=== PATIENT | female | born 1950 | race Caucasian/White ===

== ENCOUNTER → 2018-02-28 17:13 | Outpatient (CLI) | payer OTHER, SELFPAY ==
--- NOTE | 2018-02-28 17:16 | MRI_ITS ---
STUDY: MRI LUMBAR SPINE WITHOUT CONTRAST REASON FOR EXAM: Female, 67 years old. Chronic low back pain. TECHNIQUE: Standardized fat and water weighted pulse sequences were obtained in the sagittal and axial planes. COMPARISON: Prior comparison studies are not available for review at this time. FINDINGS: T12-L1: There is narrowing of the disc with vacuum disc phenomenon. There is a disc bulge and osteophyte complex. Neural foramina are narrowed with questionable impingement of the left T12 nerve root at the neural foramen. Normal lumbar lordosis. There is no substantial scoliosis. Normal conus medullaris that terminates at the L1-2 level L1-2: There is narrowing of the disc. There is vacuum disc phenomenon. There is a broad central disc protrusion. There is moderately severe degenerative arthropathy of the facet joints. There is mild central acquired canal stenosis. Neural foramina are severely narrowed with probable impingement of bilateral L1 nerve roots of the neural foramen. L2-3: There is a broad central disc protrusion. There is moderate degenerative arthropathy of the facet joints. There is moderately severe acquired canal stenosis with potential impingement of the cauda equina. There is increased epidural fat at this levels well. The patient has interpedicular screws at L3. Neuroforamina are bilaterally narrowed with questionable impingement of the L2 nerve roots at the neural foramina. L3-4: There is no residual disc material at this level. There is mild anterolisthesis. There is severe right-sided neural foraminal probably impingement of the right L3 nerve root at the neural foramen. There is moderate degenerative arthropathy of facet joints. There is no significant central acquired canal stenosis. Interpedicular screws are visible at this level probably related to surgical fusion. L4-5: There is a intervertebral disc spacer at this level. There are surgical fusion of this level with interpedicular screws. The neural foramina are moderately narrowed. There is no significant central acquired canal stenosis. L5-S1: There is vacuum disc phenomenon at L5-S1. There is a broad central disc protrusion. There is moderate degenerative arthropathy of the facet joints. There is mild central acquired canal stenosis. No foramina are moderately narrowed, left greater than right with possible impingement of the left L5 nerve root at the neural foramen. Normal visualized sacral ala. There is severe paraspinal muscular atrophy posterior to the sacrum. MRI/Spine Lumbar (Routine) IMPRESSION: 1. 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 2. Status post discectomies and surgical fusion of the L3, L4 and L5 vertebral segments. Electronically Signed: Brenda Mensah MD at 11:49 EST , Service support ,
== END ==
PROVIDERS: Referring Provider Anesthesiology Pain Medicine; Visit Provider Anesthesiology Pain Medicine
DX: M54.9 Dorsalgia, unspecified (principal); M79.606 Pain in leg, unspecified
CPT/HCPCS: 72148

== ENCOUNTER → 2018-05-15 13:52 | Outpatient (CLI) | payer OTHER, SELFPAY ==
[2018-05-15 16:10] LABS: Amphetamine Urine VISTA NEGATIVE (<1000 ng/mL); Barbiturate Urine VISTA NEGATIVE (< 200 ng/mL); Benzodiazepine Urine VISTA NEGATIVE (< 200 ng/mL); Cocaine Urine VISTA NEGATIVE (< 300 ng/mL); Ecstacy Urine VISTA NEGATIVE (< 500 ng/mL); Methadone Urine VISTA NEGATIVE (< 300 ng/mL); PCP Urine VISTA NEGATIVE (< 25 ng/mL); THC Urine VISTA NEGATIVE (< 50 ng/mL); Vista UDS pH Range 6
--- OUTSIDE RECORDS SUMMARY | 2018-07-17 13:00 | XMS RPT_ITS ---
:1950 Author Organization OHIP Support Name Relationship Address Phone BEHZAD CHARLENE Unavailable [address] + [place] [address] R Unavailable Unavailable Unavailable FORTE, CHARLENE Unavailable [address] + [place] [address] R Unavailable Unavailable Unavailable FORTE, GLENDA Unavailable [address] + [address] [place] [address] FORTE, GLENDA Unavailable [address] + [address] [place] [address] FORTE, GLENDA Unavailable [address] + [address] [place] [address] FORTE, GLENDA Unavailable [address] + [address] [place] [address] FORTE, GLENDA Unavailable [address] + [address] [place] [address] FORTE, GLENDA Unavailable [address] + [address] [place] [address] FORTE, GLENDA Unavailable [address] + [address] [place] [address] FORTE, GLENDA Unavailable [address] + [address] [place] [address] FORTE, GLENDA Unavailable [address] + [address] [place] [address] FORTE, GLENDA Unavailable [address] + [address] [place] [address] FORTE, GLENDA Unavailable [address] + [place] [address] FORTE, GLENDA Unavailable [address] + [place] [address] FORTE, GLENDA Unavailable [address] + [place] [address] FORTE, GLENDA Unavailable [address] + [place] [address] FORTE, GLENDA Unavailable [address] + [place] [address] FORTE, GLENDA Unavailable [address] + [place] [address] FORTE, GLENDA Unavailable [address] + [place] [address] FORTE, GLENDA Unavailable [address] + [place] [address] FORTE, GLENDA Unavailable [address] + [place] [address] FORTE, GLENDA Unavailable [address] + [place] [address] Care Team Providers Name Role Phone COLLIN QUINN, DR. REBEKAH Wu Attending Unavailable ANGEL CENTENO, DR. CARMELITA Vaz Primary Care Unavailable HORACE CARRENO Attending Unavailable ANGEL CENTENO, DR. CARMELITA Vaz Primary Care Unavailable MARVA ESTRADA DO Attending Unavailable ANGEL CENTENO, DR. CARMELITA Vaz Primary Care Unavailable ANGEL CENTENO, DR. CARMELITA Vaz Primary Care Unavailable SESAR URIBE CNP Attending Unavailable ANGEL CENTENO, DR. CARMELITA Vaz Attending Unavailable ANGEL CENTENO, DR. CARMELITA Vaz Primary Care Unavailable ANGEL CENTENO, DR. CARMELITA Vaz Attending Unavailable ANGEL CENTENO, DR. CARMELITA Vaz Primary Care Unavailable ANGEL CENTENO, DR. CARMELITA Vaz Attending Unavailable ANGEL CENTENO, DR. CARMELITA Vaz Primary Care Unavailable ANGEL CENTENO, DR. CARMELITA Vaz Primary Care Unavailable LIZBETH JACKSON Attending Unavailable ANGEL CENTENO, DR. CARMELITA Vaz Referring Unavailable MULU TOVAR CNP Attending Unavailable ANGEL CENTENO, DR. CARMELITA Vaz Primary Care Unavailable ANGEL CENTENO, DR. CARMELITA Vaz Attending Unavailable ANGEL CENTENO, DR. CARMELITA Vaz Primary Care Unavailable Basali, Ayman Attending Unavailable Basali, Ayman Referring Unavailable Primay Care Physicia, No Primary Care Unavailable Basali, Ayman Attending Unavailable Basali, Ayman Referring Unavailable Primay Care Physicia, No Primary Care Unavailable PROBLEMS PROBLEMS DATE TYPE CONDITION / CODE ATTENDING STATUS SOURCE 05/15/2018 Unknown F11.20 - Opioid Basali, Ayman Active [place] dependence, [facility] uncomplicated / Hospital F11.20(ICD-10) Repository 05/28/2017 Admitting Opioid dependence, COLLIN QUINN, Active [facility] Diagnosis uncomplicated / [facility] F11.20(ICD-10) Repository PROCEDURES PROCEDURES No Procedure Records FoundRESULTS RESULTS URINE DRUG SCREEN Collected: 05/15/2018 Status: F Source: [place] (VISTA) 1:55 PM [facility] REPOSITORY Order Comment: List of Drugs Taken or Suspected? UNK TYPE CODE TESTS RESULT OUT OF RANGE REFERENCE UNITS LAB L505.0075 TO BE Normal CONFIRMED Result Comment: CONFIRMATORY TESTING FOR ALL POSITIVE URINE DRUG SCREEN RESULTS WILL ONLY BE SENT OUT UPON PHYSICIAN ORDER. VISTA Urine Drug Screen methods provide only preliminary analytical test results. A more specific alternate chemical method must be used in order to obtain a confirmed analytical result. Gas chromatography/mass spectrometery (GC/MS) is the preferred confirmatory method. Clinical consideration and professional judgement should be applied to any drug of abuse test result, particularly when preliminary positive results are used. URINE TCA TESTING MUST BE ORDERED SEPARATELY. USE TEST MNEMONIC: [facility] LAB L505.5005 VISTA UDS PH 6 Normal LAB L505.5015 <1000 ng/mL AMPHETAMINES Normal NEGATIVE LAB L505.5025 < 200 ng/mL BARBITIURATES Normal NEGATIVE LAB L505.5035 < 200 ng/mL BENZODIAZIPINE Normal NEGATIVE LAB L505.5045 < 300 ng/mL COCAINE Normal NEGATIVE LAB L505.5055 < 500 ng/mL ECSTACY Normal NEGATIVE LAB L505.5065 < 300 ng/mL METHADONE Normal NEGATIVE LAB L505.5075 < 300 High ng/mL OPIATES POSITIVE LAB L505.5085 < 25 ng/mL PCP Normal NEGATIVE LAB L505.5095 < 50 ng/mL THC Normal NEGATIVE Performed By: #### L505.5000 #### [facility] [address] [place], [address] SPINE LUMBAR Observed: 02/28/2018 Status: F Source: [place] (ROUTINE) 5:16 PM [facility] Imaging Services [address] [place] [address] Spine Lumbar (Routine) MR#: [id number] Acct: [id number] Name: CHRISTIE WEN Rep #: [id number] : 1950 F 67 From: Brenda Mensah MD PCP: Care Physician, No Primary Status: REG CLI Study: Spine Lumbar (Routine) Date of Exam: 02/28/18 Exam# [id number] Ordering Dr: Rebekah Herrera MD STUDY: MRI LUMBAR SPINE WITHOUT CONTRAST REASON FOR EXAM: Female, 67 years old. Chronic low back pain. TECHNIQUE: Standardized fat and water weighted pulse sequences were obtained in the sagittal and axial planes. COMPARISON: Prior comparison studies are not available for review at this time. FINDINGS: T12-L1: There is narrowing of the disc with vacuum disc phenomenon. There is a disc bulge and osteophyte complex. Neural foramina are narrowed with questionable impingement of the left T12 nerve root at the neural foramen. Normal lumbar lordosis. There is no substantial scoliosis. Normal conus medullaris that terminates at the L1-2 level L1-2: There is narrowing of the disc. There is vacuum disc phenomenon. There is a broad central disc protrusion. There is moderately severe degenerative arthropathy of the facet joints. There is mild central acquired canal stenosis. Neural foramina are severely narrowed with probable impingement of bilateral L1 nerve roots of the neural foramen. L2-3: There is a broad central disc protrusion. There is moderate degenerative arthropathy of the facet joints. There is moderately severe acquired canal stenosis with potential impingement of the cauda equina. There is increased epidural fat at this levels well. The patient has interpedicular screws at L3. Neuroforamina are bilaterally narrowed with questionable impingement of the L2 nerve roots at the neural foramina. L3-4: There is no residual disc material at this level. There is mild anterolisthesis. There is severe right-sided neural foraminal probably impingement of the right L3 nerve root at the neural foramen. There is moderate degenerative arthropathy of facet joints. There is no significant central acquired canal stenosis. Interpedicular screws are visible at this level probably related to surgical fusion. L4-5: There is a intervertebral disc spacer at this level. There are surgical fusion of this level with interpedicular screws. The neural foramina are moderately narrowed. There is no significant central acquired canal stenosis. L5-S1: There is vacuum disc phenomenon at L5-S1. There is a broad central disc protrusion. There is moderate degenerative arthropathy of the facet joints. There is mild central acquired canal stenosis. No foramina are moderately narrowed, left greater than right with possible impingement of the left L5 nerve root at the neural foramen. Normal visualized sacral ala. There is severe paraspinal muscular atrophy posterior to the sacrum. MRI/Spine Lumbar (Routine) IMPRESSION: 1. 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 2. Status post discectomies and surgical fusion of the L3, L4 and L5 vertebral segments. 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 BMP Collected: 11/28/2017 Status: F Source: [facility] 11:34 AM FOUNDATION REPOSITORY TYPE CODE TESTS RESULT OUT OF REFERENCE UNITS RANGE LAB GLU(LOINC) 82-115 mg/dL Glucose Level 96 LAB NA(LOINC) 136-145 mEq/L Sodium Level 144 LAB K(LOINC) 3.5-5.0 mEq/L Potassium Level 4.5 LAB CL(LOINC) 98-110 mEq/L Chloride 109 LAB CO2(LOINC) 22-32 mEq/L CO2 29 LAB EBAL(LOINC 4.0-15.0 mEq/L ) Electrolyte Balance 6.0 LAB BUN(LOINC) 8.0-22.0 mg/dL BUN 22.0 LAB CRE(LOINC) 0.50-1.20 mg/dL Creatinine Lvl (s) 0.76 LAB BC(LOINC) 10.0-22.0 ratio High BUN/Creatinine 28.9 Ratio LAB CA(LOINC) 8.4-10.1 mg/dL Calcium Lvl 8.8 Performed By: #### BMP, GFR, VIDH, LIPID #### [place] [address] .GFR Collected: 11/28/2017 Status: F Source: [facility] 11:34 AM FOUNDATION REPOSITORY TYPE CODE TESTS RESULT OUT OF REFERENCE UNITS RANGE LAB GFRAA(LOINC ml/min/1.73 ) sqm GFR >60 Palauan Result Comment: GFR Population mean for , Non- Americans Ages 20-29 = 116 mL/min/1.73 sq.m. Ages 30-39 = 107 mL/min/1.73 sq.m. Ages 40-49 = 99 mL/min/1.73 sq.m. Ages 50-59 = 93 mL/min/1.73 sq.m. Ages 60-69 = 85 mL/min/1.73 sq.m. Ages 70+ = 75 mL/min/1.73 sq.m. Chronic Kidney Disease: Less than 60 mL/min/1.73 square meters End Stage Renal Disease: Less than 15 mL/min/1.73 square meters LAB GFRNO(LOINC) ml/min/1.73sqm GFR Non- >60 Result Comment: GFR Population mean for , Non- Americans Ages 20-29 = 116 mL/min/1.73 sq.m. Ages 30-39 = 107 mL/min/1.73 sq.m. Ages 40-49 = 99 mL/min/1.73 sq.m. Ages 50-59 = 93 mL/min/1.73 sq.m. Ages 60-69 = 85 mL/min/1.73 sq.m. Ages 70+ = 75 mL/min/1.73 sq.m. Chronic Kidney Disease: Less than 60 mL/min/1.73 square meters End Stage Renal Disease: Less than 15 mL/min/1.73 square meters Performed By: #### BMP, GFR, VIDH, LIPID #### [place] [id number] VIDH Collected: 11/28/2017 Status: F Source: [facility] 11:34 [facility] REPOSITORY TYPE CODE TESTS RESULT OUT OF RANGE REFERENCE UNITS LAB VIDH(LOINC) ng/mL Vit. D 22 25-Hydroxy Result Comment: Interpretive Values Based on Total 25(OH)D: Severe Deficiency <20 ng/mL Mild to Moderate Deficiency 20-30 ng/mL Optimum Levels 30-100 ng/mL Toxicity Possible >100 ng/mL Performed By: #### BMP, GFR, VIDH, LIPID #### [address] [address] LIPID Collected: 11/28/2017 Status: F Source: [facility] 11:34 AM [facility] REPOSITORY TYPE CODE TESTS RESULT OUT OF REFERENCE UNITS RANGE LAB CHOL(LOINC 50-199 mg/dL ) Cholesterol 181 Result Comment: Cholesterol Reference Interval: Less than 200 Desirable 200-239 Borderline high risk 240 and above High risk LAB TRIG(LOINC) 3-149 mg/dL Triglycerides 146 Result Comment: Triglyceride Reference Interval: Less than 150 Normal 150-199 Borderline high risk 200-499 High risk 500 or higher Very high risk LAB HD(LOINC) 40-59 mg/dL HDL High Cholesterol 84 Result Comment: HDL Reference Interval: Less than 40 Low - high risk 60 or above Optimal/lowers risk LAB LDL(LOINC) 0-129 mg/dL LDL Cholesterol 68 Result Comment: LDL is a calculated result and requires a 12-hr fast. LDL Reference Interval: Less than 100 Optimal 100-129 Near or above optimal 130-159 Borderline high risk 160-189 High risk 190 and above Very high risk Performed By: #### BMP, GFR, VIDH, LIPID #### [address] [address] [address] HEAD OR BRAIN W/O Observed: 09/19/2017 Status: F Source: [place] CONTRAST 12:08 PM [facility] REPOSITORY ORIGINAL CT Head without contrast Clinical Statement: change in mental status/weakness/aphasia Comparison: 04/15/2012 This exam was performed according to our departmental dose optimization program, and includes the following measures where applicable: automated exposure control, adjustment of the mAs and/or kVp accord ing to patient size and/or exam, and an iterative reconstruction algorithm. Findings: No acute hemorrhage, infarct, or mass is seen. Minimal periventricular chronic white matter changes are seen. No hydrocephalus is noted. The visualized portions of the paranasal sinuses and ma stoids are clear. The calvarium is intact. IMPRESSION: No acute intracranial process. Interpreted By: Pepito Lugo DO Preliminary Report By: Pepito Lugo DO Electronically Signed By: Pepito Lugo DO Dictated Date: 09/19/2017 12:20:32 PM Prelim Date: 09/19/2017 12:20:32 PM Sign Date: 09/19/2017 12:23:07 PM XR CHEST 1 VIEW Observed: 09/19/2017 Status: F Source: [place] 11:46 AM [facility] REPOSITORY ORIGINAL Portable view chest CLINICAL HISTORY: Chest pain and shortness of breath COMPARISON: 09/03/2017. FINDINGS: The cardiomediastinal contours are normal. There is no focal airspace disease. No nodule or mass is identified. There is no appreciable pleural fluid or pneumothorax. No suspicious osseous abnormality is identified. IMPRESSION: 1. No acute radiographic findings. Interpreted By: Jarek Plasencia MD Preliminary Report By: Jarek Plasencia MD Electronically Signed By: Jarek Plasencia MD Dictated Date: 09/19/2017 12:06:14 PM Prelim Date: 09/19/2017 12:06:14 PM Sign Date: 09/19/2017 12:07:45 PM CBC Collected: 09/19/2017 Status: F Source: [place] 11:21 AM [facility] REPOSITORY TYPE CODE TESTS RESULT OUT OF REFERENCE UNITS RANGE LAB WBC(LOINC) 4.50-10.80 10 3/mcL WBC 7.90 LAB RBCCT(LOINC 4.10-5.30 10 6/mcL ) Low RBC 4.04 LAB HGB(LOINC) 12.0-16.0 G/dL Hgb 12.2 LAB HCT(LOINC) 34.0-46.0 % Hct 36.0 LAB MCV(LOINC) 80.0-99.0 fL MCV 89.0 LAB MCH(LOINC) 27.0-33.0 pg MCH 30.1 LAB MCHC(LOINC) 32.0-36.0 G/dL MCHC 33.8 LAB RDW(LOINC) 11.5-15.5 % RDW 13.7 LAB PLT(LOINC) 150-450 10 3/mcL Platelet 182 LAB MPV(LOINC) 6.6-10.5 fL MPV 7.7 Performed By: #### CBC, ADIFF, ANEU, BMP, GFR #### [address] [address] .AUTO DIFF Collected: 09/19/2017 Status: F Source: [facility] 11:21 [facility] REPOSITORY TYPE CODE TESTS RESULT OUT OF REFERENCE UNITS RANGE LAB NENA(LOINC) 50.0-75.0 % Neutrophil % 73.3 LAB LYM(LOINC) 20.0-40.0 % Low Lymphocyte % 19.4 LAB MON(LOINC) 2.0-13.0 % Monocyte % 4.7 LAB EO(LOINC) 0.0-6.0 % Eosinophil % 2.3 LAB BAS(LOINC) 0.0-2.5 % Basophil % 0.3 LAB ABLYM(LOIN 0.90-4.32 10 3/mcL C) Lymphocyte, 1.50 Absolute LAB SANG(LOINC 0.09-1.40 10 3/mcL ) Monocyte, 0.40 Absolute LAB AEOS(LOINC 0.00-0.65 10 3/mcL ) Eosinophil, 0.20 Absolute LAB ABAS(LOINC 0.00-0.27 10 3/mcL ) Basophil, 0.00 Absolute Performed By: #### CBC, ADIFF, ANEU, BMP, GFR #### [address] [address] .NEUABS Collected: 09/19/2017 Status: F Source: [facility] 11:21 [facility] REPOSITORY TYPE CODE TESTS RESULT OUT OF REFERENCE UNITS RANGE LAB ANEU(LOINC) 2.25-8.10 10 3/mcL Neutrophil, 5.80 Absolute Performed By: #### CBC, ADIFF, ANEU, BMP, GFR #### [address] [address] BMP Collected: 09/19/2017 Status: F Source: [facility] 11:21 AM [facility] REPOSITORY TYPE CODE TESTS RESULT OUT OF REFERENCE UNITS RANGE LAB GLU(LOINC) 82-115 mg/dL Glucose Level 98 LAB NA(LOINC) 136-145 mEq/L Sodium Level 144 LAB K(LOINC) 3.5-5.0 mEq/L Potassium Level 3.7 LAB CL(LOINC) 98-110 mEq/L Chloride 109 LAB CO2(LOINC) 22-32 mEq/L CO2 28 LAB EBAL(LOINC 4.0-15.0 mEq/L ) Electrolyte Balance 7.0 LAB BUN(LOINC) 8.0-22.0 mg/dL BUN 20.0 LAB CRE(LOINC) 0.50-1.20 mg/dL Creatinine Lvl (s) 0.64 LAB BC(LOINC) 10.0-22.0 ratio High BUN/Creatinine 31.2 Ratio LAB CA(LOINC) 8.4-10.1 mg/dL Calcium Lvl 9.1 Performed By: #### CBC, ADIFF, ANEU, BMP, GFR #### [address] [address] .GFR Collected: 09/19/2017 Status: F Source: [facility] 11:21 AM [facility] REPOSITORY TYPE CODE TESTS RESULT OUT OF REFERENCE UNITS RANGE LAB GFRAA(LOINC ml/min/1.73 ) sqm GFR >60 Palauan Result Comment: GFR Population mean for , Non- Americans Ages 20-29 = 116 mL/min/1.73 sq.m. Ages 30-39 = 107 mL/min/1.73 sq.m. Ages 40-49 = 99 mL/min/1.73 sq.m. Ages 50-59 = 93 mL/min/1.73 sq.m. Ages 60-69 = 85 mL/min/1.73 sq.m. Ages 70+ = 75 mL/min/1.73 sq.m. Chronic Kidney Disease: Less than 60 mL/min/1.73 square meters End Stage Renal Disease: Less than 15 mL/min/1.73 square meters LAB GFRNO(LOINC) ml/min/1.73sqm GFR Non- >60 Result Comment: GFR Population mean for , Non- Americans Ages 20-29 = 116 mL/min/1.73 sq.m. Ages 30-39 = 107 mL/min/1.73 sq.m. Ages 40-49 = 99 mL/min/1.73 sq.m. Ages 50-59 = 93 mL/min/1.73 sq.m. Ages 60-69 = 85 mL/min/1.73 sq.m. Ages 70+ = 75 mL/min/1.73 sq.m. Chronic Kidney Disease: Less than 60 mL/min/1.73 square meters End Stage Renal Disease: Less than 15 mL/min/1.73 square meters Performed By: #### CBC, ADIFF, ANEU, BMP, GFR #### [place] [address] XR CHEST 2 VIEWS Observed: 09/03/2017 Status: F Source: [facility] 6:22 PM FOUNDATION REPOSITORY ORIGINAL XR CHEST 2 VIEWS, Clinical Statement: cough, Comparison: 04/23/2015 Findings: No consolidation, pneumothorax, pleural fluid, or vascular congestion is seen. Heart size and mediastinal contours are within normal limits for age and projection. No acute skeletal abnormality. Incompl etely evaluated nonspecific upper abdominal bowel gas pattern. IMPRESSION: No acute cardiopulmonary process. Interpreted By: Yordy Pemberton MD Preliminary Report By: Yordy Pemberton MD Electronically Signed By: Yordy Pemberton MD Dictated Date: 09/03/2017 11:39:03 PM Prelim Date: 09/03/2017 11:39:03 PM Sign Date: 09/03/2017 11:39:25 PM MA MAMMOGRAM SCREENING Observed: 06/18/2017 Status: F Source: [facility] BILATERAL W/ROBERTA 4:30 PM FOUNDATION REPOSITORY ORIGINAL FROM: [facility] [address] [place] [address] PROCEDURE FOR: CHRISTIE WEN [address] [place] [address] Home: PID#: [id number] Exam#: [id number] : 1950 Age: 66 TO: HORACE CARRENO SYSTEMS TECHNOLOGIST [address] [facility], [place] [address] #[id number] DIGITAL SCREENING MAMMOGRAM 3D/2D WITH CAD: 06/18/2017 Comparison is made to exam dated: 10/05/2014 mammogram - [facility]. There are scattered fibroglandular elements in both breasts. Current study was also evaluated with a Computer Aided Detection (CAD) system. No significant masses, calcifications, or other findings are seen in either breast. There has been no significant interval change. IMPRESSION: NEGATIVE There is no mammographic evidence of malignancy. A 1 year screening mammogram is recommended. I have personally reviewed the images of the examination and agree with the findings and interpretation. GERSON BOYD MD ab,ycaro/paresh:06/19/2017 10:06:31 In Service Coordinator: URBAN FRANKS)(M), [facility] letter sent: Normal BI-RADS 1&2 Mammogram BI-RADS: 1 Negative DRUGU Collected: 05/28/2017 Status: F Source: [facility] 6:30 AM FOUNDATION REPOSITORY TYPE CODE TESTS RESULT OUT OF RANGE REFERENCE UNITS LAB UDS(LOINC ) Positive Abnormal Drug Screen Urine LAB UDSDINT(L OINC) Unknown The Drug Screen urine is Urine Interp presumptive positive for: _ LAB SGDU(LOIN 1.005-1.030 C) 1.012 U Specific [place] Drg Scrn LAB PHDU(LOIN 5.0-8.0 C) 5.5 U pH Drug Scrn LAB UDS0(LOIN C) See Urine Drugs Below screened: Result Comment: This drug screen is a presumptive screening only. No confirmation will be performed unless requested. Drugs screened include: Threshold Amphetamines/Methamphetamines 1,000 ng/mL Barbiturates 200 ng/mL Benzodiazepine metabolites 200 ng/mL Cannabinoids (THC metabolites) 50 ng/mL Benzoylecognine (Cocaine metab) 300 ng/mL Opiates 300 ng/mL Phencyclidine (PCP) 25 ng/mL Methadone 300 ng/mL Propoxyphene 300 ng/mL Testing has been performed FOR MEDICAL PURPOSES ONLY. Performed By: #### DRUGU #### [address] [address] ALLERGIES ALLERGIES No Allergies Records FoundENCOUNTERS ENCOUNTERS ADMIT/DISCHARGE ACCOUNT NUMBER ADMITTING ENCOUNTER LOCATION SOURCE CLASS 05/15/2018 [id number] Ambulatory [facility] ding:LAB Repository 02/28/2018 [id number] Ambulatory [facility] ding:MRI Repository 10/10/2017/02/26/20 [id number] Ambulatory ABuilding:[address] Repository 09/20/2017 [id number] Ambulatory ABuilding:[facility] Repository 09/19/2017/09/20/19 [id number] Emergency ABuilding:[address] Repository 09/05/2017 [id number] Ambulatory ABuilding:[facility] Repository 09/03/2017/09/04/19 [id number] Ambulatory ABuilding:[address] Repository 09/03/2017/09/04/19 [id number] Ambulatory [address] Health :[facility] Repository 08/20/2017/08/21/19 [id number] Ambulatory ABuilding:[address] Repository 08/13/2017/08/14/19 [id number] Ambulatory ABuilding:[address] Repository 06/18/2017/06/18/19 [id number] Ambulatory [address] Health :[facility] Repository 05/28/2017/06/01/19 [id number] Ambulatory [address] Health :[facility] Repository PAYERS PAYERS ENCOUNTER GUARANTOR PAYER SUBSCRIBER SOURCE 05/15/2018 CHRISTIE Boothe Primary GLENDA CARLYDenisaTl [place] [id number] Insurance:[facility] icy [facility] [id number] Repository [address]Juc: [address] Date:5620-07-42[phone] (JA) [place], [place] [address]IJ: 05/15/2018 Secondary NOT GIVENUNK [place] Insurance:SELF [facility]Y [facility]: Effective Repository Date:2018-05-15 02/28/2018 CHRISTIE Boothe Primary GLENDA FORTCHOCONTl Tav[place] [id number] [facility] NII AVDonnie y Number: [facility] DANETTE al [id number] Repository [address]Iaj: ([phone]) Date:6545-95-31[phone] (HP) [place] [address]WZ: 02/28/2018 Secondary NOT GIVENUNK [place] Insurance:SELF PAY [facility] Number: Effective Repository Date:2018-02-22 10/10/2017 CHRISTIE Boothe Primary GLENDA V [facility] FORTEDOB: Insurance:AULTCARE FORTEDOB: [facility] [id number] Number: [id number] [id number] [facility] [place] Date:2017-09-20 [place] [address]~[facility] [id number] [id number]: 330) [email or web address]: Name: [phone] [place] [address] (HP)Tel: 330) (HP) [phone]: ([phone] 09/20/2017 CHRISTIE Boothe Primary GLENDA V [facility] FORTEDOB: Insurance:AULTCARE FORTEDOB: [facility] R32Fyoiha Number: [id number] [id number] 3 [facility] [place] Date:2017-09-20 [place] [address]~[facility] [id number] 305[address]Nyd: [phone]) [email or web address]: Name: [phone], [place] (HP)Tel: 330) (HP) [phone]: (WP) [phone] 09/20/2017 [facility] Insurance:MEDICARE FORTEDOB: Foundation PART BPolicy Number: [id number] Repository [id number] Date:2017-09-20 [place], [place] [id number] [id number]: ([phone]) Name:[facility] [phone] Administrators LLCPO (HP)Tel: (000) [address]Beqdhpiai, [phone] (WP) [place] [address]CR: 09/19/2017 CHRISTIE K Primary GLENDA V [facility] FORTEDOB: Insurance:AULTCARE FORTEDOB: Foundation [id number] Number: [id number] [id number] 3 [place], [place] Date:2017-09-19 [place] [address]~DUYRICHARDRITA [id number] [id number]: (330) @[facility]ING[facility]ELDel: Name:SHIREEN Santa [facility] [phone] [place] [address] ()Tel: 330) () [phone]: () [phone] 09/19/2017 Secondary [facility] Insurance:MEDICARE FORTEDOB: Foundation PART BPolicy Number: [id number] Repository [id number] [address] Date:2017-09-19 [place], [place] [id number]: ([phone]) Name:[facility] [phone] Administrators LLCPO (HP)Tel: (000) [address] [address]Kokmqdwsh, 000-0000 (WP) [place] [address]VA: 09/05/2017 CHRISTIE K Primary GLENDA [facility] FORTEDOB: Insurance:AULTCARE FORTEDOB: [facility] [id number] Number: [id number] [address] [id number] [address] [place], [place] Date:2017-09-05 [place] [address]~[place] [id number] [id number]: 330) @[facility]: Name:AP [phone] [place], [place] (HP)Tel: [phone]) (HP) [phone]: (HG) [phone] 09/03/2017 CHRISTIE K Primary GLENDA [facility] FORTEDOB: Insurance:AULTCARE FORTEDOB: [facility] [id number] Number: [id number] [address] [id number] [address] [place], [place] Date:2017-09-03 [place] [address]~[place] [id number] 89497Vmq: (330) @[employer].[facility]: Name:AP [phone] [place] [address] (HP)Tel: [phone]) (HP) [phone]: (MO) [phone] 09/03/2017 Secondary [facility] Insurance:MEDICARE FORTEDOB: [facility] PART BPolicy Number: [id number] Repository [id number] [address] Date:2017-[facility] [place] [id number] [id number]: ([phone]) Name:[facility] [phone] Administrators LLCPO (HP)Tel: (000) [address] [address]Lounjhgig, 000-0000 (WP) [place] [address]NG: 09/03/2017 CHRISTIE K Primary GLENDA V [facility] FORTEDOB: Insurance:AULTCARE FORTEDOB: [facility] [id number] Number: [id number] [id number] [address] [place], [place] Date:2017-09-03 [place] [address]~[place] [id number] 69914Tqb: 330) @[facility] InternationalATRI[facility] HEALTH STEELE CREEKLucille: Name:AP [phone] [place] [address] (HP)Tel: [phone]) (HP) [phone]: (WP) [phone] 09/03/2017 [facility] FORTEDOB: [facility] PART BPolicy Number: [id number] Repository [id number] [address] Date:2017-09-03 [facility] [place] [id number]: [phone]) Name:[facility] 767-[facility]3 [employer] (HP)Tel: 000) [address] [address]Prgqcipgd, 000-0000 (WP) [place] [address]JM: 08/20/2017 CHRISTIE Tl Primary GLENDA [facility] FORTEDOB: Insurance:AULTCARE FORTEDOB: [facility] [id number] Number: [id number] [address] [id number] [address] [place], [place] Date:2017-08-20 [place] [address]~[place] [id number] [id number]: 330) @[facility]ENTER[facility]: Name:AP [phone] [place] [address] (HP)Tel: [phone]) (HP) [phone]: (UD) [phone] 08/13/2017 CHRISTIE K Primary GLENDA V [facility] FORTEDOB: Insurance:AULTCARE FORTEDOB: [facility] [id number] Number: [id number] [address] [id number] [address] [place], [place] Date:2017-08-13 [facility] [place] [address]~[place] [id number]: (330) @[employer] [email or web address]: Name:AP [phone] [place] [address] (HP)Tel: 330) (HP) [phone]: (WP) [phone] 06/18/2017 CHRISTIE Tl Primary GLENDA V [facility]: Insurance:MYTONCARE FORTEDOB: [facility] [id number] Number: [id number] Repository [facility] [id number] 3 [facility], [place] Date:2017-06-05 [place] [address]~[place] [id number] 490[address]Kcw: (330) @[employer] [email or web address]: Name: [phone] [place] [address] (HP)Tel: (330) (HP) [phone]: (QM) [phone] 05/28/2017 CHRISTIE Tl Primary GLENDA V [facility] FORTEDOB: Insurance:[facility] FORTEDOB: [facility] [id number] Number: [id number] Repository [facility] [id number] 3 [facility], [place] Date:2017-05-28 [place] [address]~[place] [id number] [phone]: (330) @[employer] [email or web address]: Name:AP [phone] [place], [place] (HP)Tel: 330) (HP) [phone]: (MS) [phone]
== END ==
PROVIDERS: Referring Provider Anesthesiology Pain Medicine; Visit Provider Anesthesiology Pain Medicine
DX: F11.20 Opioid dependence, uncomplicated (principal)
CPT/HCPCS: 80307

== ENCOUNTER → 2019-06-25 | Outpatient (CLI) | payer OTHER, SELFPAY ==
[2019-06-25 18:30] LABS: Amphetamine Urine VISTA NEGATIVE (<1000 ng/mL); Barbiturate Urine VISTA NEGATIVE (< 200 ng/mL); Benzodiazepine Urine VISTA NEGATIVE (< 200 ng/mL); Cocaine Urine VISTA NEGATIVE (< 300 ng/mL); Ecstacy Urine VISTA NEGATIVE (< 500 ng/mL); Methadone Urine VISTA NEGATIVE (< 300 ng/mL); PCP Urine VISTA NEGATIVE (< 25 ng/mL); THC Urine VISTA NEGATIVE (< 50 ng/mL); Vista UDS pH Range 6
== END | disposition home or self-care (01) ==
LOC: LABSPEC 16:59
PROVIDERS: Referring Provider Anesthesiology Pain Medicine; Visit Provider Anesthesiology Pain Medicine
DX: F11.20 Opioid dependence, uncomplicated (principal)
CPT/HCPCS: 80307

== ENCOUNTER 2022-06-30 16:20 | Inpatient (IN) | payer MEDICARE, SELFPAY ==
[2022-06-30 16:37] VITALS: BP 151/82; PULSE 92; RESP 16; TEMP 36.5; O2SAT 97; BMI 28.8
[2022-06-30 18:01] VITALS: PULSE 92
[2022-06-30] MEDS: Pantoprazole Sodium 40 MG Tablet PO (18:01)
[2022-06-30] MEDS: Metoprolol Tartrate 25 MG Tablet PO (18:01)
[2022-06-30] MEDS: oxyCODONE CR 15 MG Tablet PO (18:01)
[2022-06-30] MEDS: clonazePAM 0.5 MG Tablet PO (18:03)
--- NOTE | 2022-06-30 18:47 | HP.PCM_ITS ---
HPI - General General Date of Admission: 06/30/22 Date of Service: 07/03/22 Chief Complaint: Here for rehabilitation. HPI Narrative 06/26/2022 CHRISTIE WEN, is a 71 Female who presents with followin06/26/2022 Admit to [facility]. Generalized weakness x 2 weeks, acute kidney injury, creatinine 2.79, GFR 17. Weakness, decreased urine output. Urinalysis consistent with urinary tract infection, Rocephin IV given. Sodium 130, Magnesium 0.6, Magnesium sulfate 4gm IV given. Mccormick for urinary retention, renal ultrasound for acute kidney injury. Hold antibiotics for now. Renal ultrasound showed left hydronephrosis. Normal saline 75cc/hour for hyponatremia. 06/27/2022 More alert, urine more clear, but urinalysis large leukocyte esterase, 2+ bacteria. Creatinine improved to 2.13. Rocephin 1gm IV for urinary tract infection, fever. Magnesium 1.7, given Magnesium sulfate 4gm IV. PT/OT for debility. 06/30/2022 Admit to TCU with debility, here for rehabilitation, strengthening, prior to dischareg home with . [facility] Medical History (Updated 06/30/22 @ 18:[address] Timothy Mccoy MD) Acute kidney injury Anxiety Bladder prolapse Chronic kidney disease, stage 3b Debility Diabetes mellitus Fibromyalgia History of colon cancer Hypertension Hypomagnesemia Hyponatremia Obstructive sleep apnea Urinary retention Urinary tract infection Home Medications acetaminophen 650 mg tablet,extended release (Tylenol Arthritis Pain) 650 mg PO TID pain 06/30/22 [History Last Taken Unknown] alendronate 70 mg tablet (Fosamax) 70 mg PO QWEEK Supplement 06/30/22 [History Last Taken Unknown] cholecalciferol (vitamin D3) 125 mcg (5,000 unit) tablet 125 mcg PO DAILY Supplement 06/30/22 [History Last Taken Unknown] clonazepam 0.5 mg tablet 0.5 mg PO BID Anxiety 06/30/22 [History Last Taken Unknown] docusate sodium 100 mg capsule 100 mg PO BID PRN Constipation 06/30/22 [History Last Taken Unknown] duloxetine 60 mg capsule,delayed release (Cymbalta) 60 mg PO QHS Depression 06/30/22 [History Last Taken Unknown] gabapentin 300 mg capsule 300 mg PO TID Nerve pain 06/30/22 [History Last Taken Unknown] loperamide 2 mg tablet (Imodium A-D) 2 mg PO Q6H PRN Diarrhea 06/30/22 [History Last Taken Unknown] magnesium oxide 400 mg (241.3 mg magnesium) tablet 400 mg PO DAILY Supplement 06/30/22 [History Last Taken Unknown] metoprolol tartrate 25 mg tablet 25 mg PO BID BP 06/30/22 [History Last Taken Unknown] omeprazole 40 mg capsule,delayed release 40 mg PO BID GERD 06/30/22 [History Last Taken Unknown] ondansetron HCl 4 mg/5 mL oral solution 4 mg PO Q4H PRN PRN Nausea 06/30/22 [History Last Taken Unknown] oxycodone 15 mg tablet 15 mg PO BID PRN Pain 06/30/22 [History Last Taken Unknown] potassium chloride 20 mEq tablet,extended release 20 meq PO DAILY Supplement 06/30/22 [History Last Taken Unknown] tramadol 50 mg tablet 50 mg PO BID PRN Pain 06/30/22 [History Last Taken Unknown] Allergy/AdvReac Type Severity Reaction Status Date / Time diclofenac [From Voltaren] Allergy Hives Verified 06/30/22 16:43 fexofenadine [From Aria] Allergy Hives Verified 06/30/22 16:38 guaifenesin Allergy Hives Verified 06/30/22 16:44 ibuprofen Allergy Hives Verified 06/30/22 16:43 meloxicam [From Mobic] Allergy Hives Verified 06/30/22 16:43 nabumetone [From Relafen] Allergy Hives Verified 06/30/22 16:43 naproxen [From Naprosyn] Allergy Hives Verified 06/30/22 16:43 sulindac [From Clinoril] Allergy Hives Verified 06/30/22 16:43 Lodine Allergy Hives Uncoded 06/30/22 16:43 Family History (Updated 06/30/22 @ 18:[address] Timothy Mccoy MD) Father Diabetes CAD (coronary artery disease) Myocardial infarction Mother Diabetes CAD (coronary artery disease) Heart failure Aunt Cancer Pancreatic. Surgical History (Updated 06/30/22 @ 18:[address] Timothy Mccoy MD) History of carpal tunnel release History of gastric bypass History of hip replacement History of lumbar laminectomy for spinal cord decompression History of partial hysterectomy History of right hemicolectomy History of tonsillectomy History of tubal ligation History of wisdom tooth extraction Social History (Updated 06/30/22 @ 18:[address] Timothy Mccoy MD) household members: spouse Smoking Status: Former smoker alcohol intake: never substance use type: does not use ROS Constitutional Constitutional: Denies chills, fever(s) or weight gain ENT HEENT: Denies headache(s), nasal congestion or nasal discharge Cardiovascular Cardiovascular: Denies chest pain or palpitations Respiratory/Chest Respiratory/Chest: Denies cough, excessive phlegm production or shortness of breath with exertion Gastrointestinal Gastrointestinal: Denies abdominal pain, nausea or vomiting Genitourinary Genitourinary: Denies dysuria Musculoskeletal Musculoskeletal: Denies joint pain or joint swelling Integumentary Integumentary: Denies rash or wounds Neurologic Neurologic: Denies focal weakness, numbness or tingling Psychiatric Psychiatric: Denies anxiety, auditory hallucinations, depression, homicidal ideation or suicidal ideation Vital Signs Vital Signs Vital Signs: 06/30/22 16:37 06/30/22 18:01 Temperature 97.7 F L Temperature Source Temporal Pulse Rate 92 92 Respiratory Rate 16 Blood Pressure 151/82 H Blood Pressure Mean 105 Blood Pressure Source Monitor Blood Pressure Position Sitting Blood Pressure Location Right Arm Pulse Ox 97 Oxygen Delivery Method Room Air Physical Exam Const alert General Appearance: cooperative HEENT normocephalic Eyes PERRL and EOMs intact bilaterally Neck supple, no JVD and no carotid bruits Resp normal respiratory effort, normal air movement and clear to auscultation bilaterally Cardio regular rate and regular rhythm GI normal to inspection, nondistended, normoactive bowel sounds, non-tender and non-distended Bladder / Kidney Exam: catheter in place urethral Extremity normal capillary refill General Extremity: Negative for edema Skin no rashes or lesions noted General Skin Exam: no breakdown Psych affect normal Appearance: appropriate Results Lab / Micro Data Result Diagrams: 07/03/22 05:17 07/03/22 05:17 Assessment & Plan Assessment/Plan (1) Debility: (2) Acute kidney injury: (3) Hyponatremia: (4) Hypomagnesemia: (5) Urinary tract infection: (6) Diabetes mellitus: (7) Hypertension: (8) Urinary retention: (9) Chronic kidney disease, stage 3b: (10) Fibromyalgia: (11) Anxiety: (12) Obstructive sleep apnea: (13) History of colon cancer: (14) Bladder prolapse: PLAN: Plan 71 year old female with below past medical history hospitalized for weakness secondary to urinary tract infection, complicated by acute kidney injury, obstructive uropathy, hyponatremia, hypomagnesemia, admitted to TCU with debili ty, here for rehabilitation, strengthening, prior to discharge home with . * Debility - PT/OT. * Cognition - ST. * Pain - Tylenol 1000mg tid, Tramadol 50mg bid prn pain (4-5), Oxycontin CR 15mg bid. * Bowel - colace 100mg bid prn, Loperamide 2mg q6h prn. * Adult immunization - Administer pneumonia vaccine, covid19 vaccine, flu vaccine as appropriate. * DVT prophylaxis - Hold, monitor. * Osteoporosis - Alendronate 70mg qweek. 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 * Depression - Duloxetine 60mg qhs, stable chronic jail use, GDR not recommended. * Neuropathic pain - Gabapentin 300mg tid. * Nutrition - Glucerna Shake 120ml tidcm. * Hypertension - Metoprolol 25mg bid. * Nausea - Zofran ODT 4mg q4h prn. * GERD - Pantoprazole 40mg bid. * Hypokalemia - KCL ER 20meq daily.
[2022-06-30 19:00] VITALS: O2SAT 97
[2022-06-30] MEDS: DULoxetine Hcl 60 MG Capsule PO (20:56)
[2022-06-30] MEDS: Acetaminophen 500 MG Tablet 1000 MG PO (20:56)
[2022-06-30] MEDS: Gabapentin 300 MG Capsule PO (20:59)
[2022-06-30] MEDS: Menthol/Lanolin/Calamine/Znox 113 GM Tube 1 APPLIC TOPICAL (21:01)
[2022-06-30] MEDS: Nystatin Powder 15gm Bottle 1 APPLIC TOPICAL (21:01)
[2022-07-01 05:31] VITALS: BP 128/59; PULSE 78
[2022-07-01] MEDS: Gabapentin 300 MG Capsule PO ×3 (05:31→21:38)
[2022-07-01] MEDS: Metoprolol Tartrate 25 MG Tablet PO ×2 (05:31→17:56)
[2022-07-01] MEDS: Pantoprazole Sodium 40 MG Tablet PO ×2 (05:31→17:57)
[2022-07-01] MEDS: clonazePAM 0.5 MG Tablet PO ×2 (05:31→17:55)
[2022-07-01] MEDS: oxyCODONE CR 15 MG Tablet PO ×2 (05:31→17:56)
[2022-07-01] MEDS: Acetaminophen 500 MG Tablet 1000 MG PO ×3 (05:32→21:37)
[2022-07-01] MEDS: Menthol/Lanolin/Calamine/Znox 113 GM Tube 1 APPLIC TOPICAL ×2 (05:37→21:38)
[2022-07-01] MEDS: Nystatin Powder 15gm Bottle 1 APPLIC TOPICAL ×2 (05:37→21:38)
[2022-07-01 06:30] LABS: Bedside Glucose 102 mg/dL (74-106)
[2022-07-01 07:32] LABS: Absolute Lymphocyte Count 3.07 X10^3/uL (0.83-4.51); Absolute Neutrophil Count 6.2 X10^3/uL (2.0-7.7); Basophil# 0.07 X10^3/uL; Basophil% 0.6 % (0-1); Eosinophils% 4.5 % (0-5); Hematocrit 29.6 % (37-47); Hemoglobin 9.2 g/dL (12.0-15.0); Lymphocyte # 3.07 X10^3/ul (0.83-4.51); Lymphocyte % 27.9 % (19-41); Mean Corp Hgb Conc 31.1 g/dL (32-36); Mean Corpuscular Hgb 28.7 pg (27.0-32.0); Mean Corpuscular Volume 92.2 fL (81-99); Mean Platelet Vol. 8.7 fl (6.2-12.0); Monocyte# 0.87 X10^3/uL; Monocyte% 7.9 % (0-10); NRBC Flagged by Analyzer 0 % (0-5); Neutrophil # 6.21 X10^3/uL (2.7-7.7); Neutrophil % 56.6 % (47-70); Platelet Count 498 K/mm3 (150-450); RBC Distribution Width CV 16.1 % (11.6-14.6); RBC Distribution Width SD 54.6 fl (35.1-43.9); Red Blood Count 3.21 M/mm3 (4.2-5.4)
[2022-07-01 07:48] LABS: Anion Gap 10 (5-15); BUN 20 mg/dL (7-18); Calcium,Total 8.9 mg/dL (8.5-10.1); Chloride 110 mmol/L (98-107); Creatinine, Serum 1.67 mg/dL (0.55-1.02); EST Glomerular Filtration Rate 32 mL/min (>60); Est Glom Filt Rate - Afr Amer 39 mL/min (>60); Estimated Creatinine Clearance 21.55 ml/min; Glucose 101 mg/dL (74-106); Potassium 3.5 mmol/L (3.5-5.1); Sodium Level 139 mmol/L (136-145)
[2022-07-01] MEDS: Potassium Chloride Oral Tablet 20 MEQ PO (08:32)
[2022-07-01] MEDS: Glucerna Shake 120 ML LIQUID PO ×3 (08:36→17:55)
[2022-07-01] MEDS: Tuberculin,Purif.prot.deriv. 50 TU/ML Vial 0.1 ML ID (09:25)
[2022-07-01 14:00] VITALS: BP 145/80; PULSE 80; RESP 18; TEMP 36.7; O2SAT 92
[2022-07-01 17:56] VITALS: BP 145/80; PULSE 80
[2022-07-01] MEDS: DULoxetine Hcl 60 MG Capsule PO (21:38)
[2022-07-02 06:31] LABS: Bedside Glucose 86 mg/dL (74-106)
[2022-07-02] MEDS: Menthol/Lanolin/Calamine/Znox 113 GM Tube 1 APPLIC TOPICAL ×2 (07:02→17:52)
[2022-07-02] MEDS: Gabapentin 300 MG Capsule PO ×3 (07:04→21:53)
[2022-07-02] MEDS: Nystatin Powder 15gm Bottle 1 APPLIC TOPICAL ×2 (07:04→17:53)
[2022-07-02] MEDS: oxyCODONE CR 15 MG Tablet PO ×2 (07:04→18:01)
[2022-07-02 07:06] VITALS: BP 124/61; PULSE 73
[2022-07-02] MEDS: Metoprolol Tartrate 25 MG Tablet PO ×2 (07:06→17:54)
[2022-07-02] MEDS: Pantoprazole Sodium 40 MG Tablet PO ×2 (07:06→17:54)
[2022-07-02] MEDS: Acetaminophen 500 MG Tablet 1000 MG PO ×3 (07:06→21:59)
[2022-07-02] MEDS: clonazePAM 0.5 MG Tablet PO ×2 (07:14→18:01)
--- NOTE | 2022-07-02 08:26 | NURSING ---
pt has been very hard to wake up in mornings. also stated yesterday that pt is not a morning person and is more awake mid morning. called pharmacy to change times on glucerna and bhakti and Yves from pharmacy stated to just give earlier or late. rn aware
[2022-07-02 11:00] VITALS: PULSE 69; RESP 16; O2SAT 96
[2022-07-02] MEDS: Potassium Chloride Oral Tablet 20 MEQ PO (11:37)
[2022-07-02] MEDS: Glucerna Shake 120 ML LIQUID PO ×2 (11:37→18:05)
[2022-07-02 14:00] VITALS: BP 121/52; PULSE 76; RESP 16; TEMP 36.2; O2SAT 95
[2022-07-02 17:47] LABS: Magnesium 1.8 mg/dL (1.6-2.6)
[2022-07-02 17:54] VITALS: BP 121/52; PULSE 76
[2022-07-02] MEDS: DULoxetine Hcl 60 MG Capsule PO (22:57)
[2022-07-03 05:56] LABS: Absolute Lymphocyte Count 3.67 X10^3/uL (0.83-4.51); Absolute Neutrophil Count 6.6 X10^3/uL (2.0-7.7); Basophil# 0.09 X10^3/uL; Basophil% 0.7 % (0-1); Eosinophil# 0.58 X10^3/uL; Eosinophils% 4.8 % (0-5); Hematocrit 29.5 % (37-47); Hemoglobin 9.2 g/dL (12.0-15.0); Lymphocyte # 3.67 X10^3/ul (0.83-4.51); Lymphocyte % 30.5 % (19-41); Mean Corp Hgb Conc 31.2 g/dL (32-36); Mean Corpuscular Hgb 29.4 pg (27.0-32.0); Mean Corpuscular Volume 94.2 fL (81-99); Mean Platelet Vol. 8.8 fl (6.2-12.0); Monocyte# 0.81 X10^3/uL; Monocyte% 6.7 % (0-10); NRBC Flagged by Analyzer 0 % (0-5); Neutrophil # 6.56 X10^3/uL (2.7-7.7); Neutrophil % 54.5 % (47-70); Platelet Count 515 K/mm3 (150-450); RBC Distribution Width CV 16.3 % (11.6-14.6); RBC Distribution Width SD 56.2 fl (35.1-43.9); Red Blood Count 3.13 M/mm3 (4.2-5.4); White Blood Count 12.1 K/mm3 (4.4-11.0)
[2022-07-03] MEDS: Gabapentin 300 MG Capsule PO ×3 (06:09→20:59)
[2022-07-03] MEDS: Menthol/Lanolin/Calamine/Znox 113 GM Tube 1 APPLIC TOPICAL ×2 (06:09→17:21)
[2022-07-03] MEDS: clonazePAM 0.5 MG Tablet PO ×2 (06:09→17:20)
[2022-07-03 06:10] VITALS: BP 98/53; PULSE 71
[2022-07-03] MEDS: oxyCODONE CR 15 MG Tablet PO ×2 (06:10→17:20)
[2022-07-03] MEDS: Nystatin Powder 15gm Bottle 1 APPLIC TOPICAL ×2 (06:11→18:19)
[2022-07-03] MEDS: Pantoprazole Sodium 40 MG Tablet PO ×2 (06:12→17:20)
[2022-07-03] MEDS: Acetaminophen 500 MG Tablet 1000 MG PO ×3 (06:12→21:00)
[2022-07-03 06:29] LABS: Anion Gap 9 (5-15); BUN 32 mg/dL (7-18); BUN/Creat Ratio 12.2 RATIO (10-20); Calcium,Total 9.2 mg/dL (8.5-10.1); Chloride 111 mmol/L (98-107); Creatinine, Serum 2.62 mg/dL (0.55-1.02); EST Glomerular Filtration Rate 19 mL/min (>60); Est Glom Filt Rate - Afr Amer 23 mL/min (>60); Estimated Creatinine Clearance 13.74 ml/min; Glucose 101 mg/dL (74-106); Potassium 4.1 mmol/L (3.5-5.1); Sodium Level 138 mmol/L (136-145)
[2022-07-03 06:40] LABS: Bedside Glucose 93 mg/dL (74-106)
--- NOTE | 2022-07-03 07:41 | US_ITS ---
INDICATION: acute kidney injury, left hydronephrosis. EXAMINATION: Ultrasound US Kidney(s) complete (eg, kidneys and bladder) TECHNIQUE: Bae scale and color doppler images were obtained of the kidneys. COMPARISON: None. FINDINGS: RIGHT KIDNEY: Length: 9.5 cm length. Parenchyma: Unremarkable. Hydronephrosis: None. LEFT KIDNEY: Length: 10 cm length. Parenchyma: Unremarkable. Hydronephrosis: None. URINARY BLADDER: Nondistended with Mccormick catheter in place precludes evaluation. US/Kidney and Bladder IMPRESSION: No hydronephrosis. Nondistended bladder. Electronically Signed: Grisel Srinivasan MD at 4:45 EDT ,
[2022-07-03] MEDS: Glucerna Shake 120 ML LIQUID PO ×3 (09:18→17:20)
[2022-07-03] MEDS: 0.9% Normal Saline 1,000 ML 100 ML IV ×2 (09:22→18:21)
--- NOTE | 2022-07-03 11:50 | NURSING ---
Readers' Advisory Service Librarian Note; Activity Asset: Chris Hooker is independent in her choice of daily activities. She prefers to be called Mirtha. Mirtha has her tablet and smartphone her and she will play games, watch movies and talk w/her family using them. She stated she is not a gig reader but likes to look at the magazines. She is not interested in group activities at this time, will continue to do social visit and encourage small group activities for social well-being.
--- NOTE | 2022-07-03 11:59 | NURSING ---
Resident has had confusion while she's been here. This RN discussed Covid booster with her and , they both agreed they'd like her to have while here.
[2022-07-03] MEDS: Potassium Chloride Oral Tablet 20 MEQ PO (13:36)
[2022-07-03 14:00] VITALS: BP 104/55; PULSE 85; RESP 16; TEMP 36.7; O2SAT 96
[2022-07-03 16:41] LABS: Anion Gap 10 (5-15); BUN 32 mg/dL (7-18); Calcium,Total 9.2 mg/dL (8.5-10.1); Chloride 113 mmol/L (98-107); Creatinine, Serum 2.92 mg/dL (0.55-1.02); EST Glomerular Filtration Rate 17 mL/min (>60); Est Glom Filt Rate - Afr Amer 20 mL/min (>60); Estimated Creatinine Clearance 12.33 ml/min; Glucose 120 mg/dL (74-106); Potassium 3.9 mmol/L (3.5-5.1); Sodium Level 140 mmol/L (136-145)
[2022-07-03 17:08] LABS: Bacteria 0 SEEN /hpf (None Seen); Mucous, Urine 0 SEEN /hpf (<or=2+); Red Blood Cells-Urine 0 SEEN /hpf (0-5)
[2022-07-03 17:14] LABS: Color, Urine Yellow (Yellow); Glucose, Dipstick Normal (Normal); Ketone-Dipstick 5 mg/dl (Negative); Leukocyte Esterase-Dipstick 500 /ul (Negative); Nitrite-Dipstick Negative (Negative); Occult Blood-Urine 150 /ul (Negative); Protein-Dipstick 100 mg/dl (Negative); Urine Bilirubin Dipstick Negative (Negative); Urine Clarity Cloudy (Clear); Urine Urobilinogen Normal (Normal)
[2022-07-03 17:20] VITALS: PULSE 86
[2022-07-03] MEDS: Metoprolol Tartrate 25 MG Tablet PO (17:20)
--- NOTE | 2022-07-03 17:22 | CASEMGMT ---
Social Work Met with pt to complete psychosocial assessment. Pt alert and willing to meet with SW. Pt with what appears to be expressive aphasia. Pt indicating she knows what she wants to say but having a difficult time finding the words. Pt becoming frustrated with herself. Extended time needed and allowed for pt to come up with responses. Pt score on BIMS 3/15. Difficult to assess if low score is related to cognition or word finding. MOLST not completed at this time with pt dues to questionable cognition. Phone call to pt and reviewed pt answers during assessment. states pt has had sharp decline in speaking and function over the last 5-6 weeks. Pt spouse provides help with all ADLS and IADLS and this is new recently. Spouse plans to take pt home at time of discharge and provide needed help. [place], however there is a stair lift and ramp available. SW explained [facility] coverage and thata continued stay is not guaranteed. SW to continue to follow for d/c planning. PEGGY Dang
[2022-07-03 17:30] LABS: Renal Epithelial Cells 0-5 SEEN /hpf (0-5); Squamous Epithelial Cells - UA 5-10 SEEN /hpf (5-10); White Blood Cells >100 SEEN /hpf (0-5)
[2022-07-03] MEDS: DULoxetine Hcl 60 MG Capsule PO (21:00)
[2022-07-03 21:05] VITALS: O2SAT 95
[2022-07-04] MEDS: 0.9% Normal Saline 1,000 ML 100 ML IV ×2 (05:16→15:02)
[2022-07-04] MEDS: Gabapentin 300 MG Capsule PO ×3 (05:17→21:01)
[2022-07-04] MEDS: Acetaminophen 500 MG Tablet 1000 MG PO ×3 (05:17→21:00)
[2022-07-04] MEDS: clonazePAM 0.5 MG Tablet PO ×2 (05:17→17:28)
[2022-07-04 05:18] VITALS: BP 123/63; PULSE 78
[2022-07-04] MEDS: Alendronate Sodium 70 MG Tablet PO (05:18)
[2022-07-04] MEDS: Pantoprazole Sodium 40 MG Tablet PO ×2 (05:18→17:30)
[2022-07-04] MEDS: Metoprolol Tartrate 25 MG Tablet PO ×2 (05:18→17:30)
[2022-07-04] MEDS: Cefdinir 300 MG Capsule PO (05:19)
[2022-07-04] MEDS: oxyCODONE CR 15 MG Tablet PO ×2 (05:19→17:35)
[2022-07-04] MEDS: Menthol/Lanolin/Calamine/Znox 113 GM Tube 1 APPLIC TOPICAL ×2 (05:26→17:32)
[2022-07-04] MEDS: Nystatin Powder 15gm Bottle 1 APPLIC TOPICAL ×2 (05:26→17:39)
[2022-07-04 05:40] LABS: Absolute Lymphocyte Count 3.29 X10^3/uL (0.83-4.51); Absolute Neutrophil Count 6.1 X10^3/uL (2.0-7.7); Basophil# 0.08 X10^3/uL; Basophil% 0.7 % (0-1); Eosinophil# 0.43 X10^3/uL; Hematocrit 27.4 % (37-47); Hemoglobin 8.3 g/dL (12.0-15.0); Lymphocyte # 3.29 X10^3/ul (0.83-4.51); Lymphocyte % 30.4 % (19-41); Mean Corp Hgb Conc 30.3 g/dL (32-36); Mean Corpuscular Hgb 29.2 pg (27.0-32.0); Mean Corpuscular Volume 96.5 fL (81-99); Mean Platelet Vol. 8.6 fl (6.2-12.0); Monocyte# 0.73 X10^3/uL; Monocyte% 6.7 % (0-10); NRBC Flagged by Analyzer 0 % (0-5); Neutrophil # 6.08 X10^3/uL (2.7-7.7); Neutrophil % 56.1 % (47-70); Platelet Count 430 K/mm3 (150-450); RBC Distribution Width CV 16.5 % (11.6-14.6); RBC Distribution Width SD 58.6 fl (35.1-43.9); Red Blood Count 2.84 M/mm3 (4.2-5.4); White Blood Count 10.8 K/mm3 (4.4-11.0)
[2022-07-04 06:01] LABS: Anion Gap 8 (5-15); BUN 34 mg/dL (7-18); BUN/Creat Ratio 11.7 RATIO (10-20); Calcium,Total 8.4 mg/dL (8.5-10.1); Chloride 114 mmol/L (98-107); EST Glomerular Filtration Rate 17 mL/min (>60); Est Glom Filt Rate - Afr Amer 20 mL/min (>60); Estimated Creatinine Clearance 12.41 ml/min; Glucose 95 mg/dL (74-106); Potassium 4.2 mmol/L (3.5-5.1); Sodium Level 139 mmol/L (136-145)
[2022-07-04 08:00] LABS: Bedside Glucose 96 mg/dL (74-106)
[2022-07-04 08:00] LABS: Bedside Glucose 91 mg/dL (74-106)
[2022-07-04] MEDS: Glucerna Shake 120 ML LIQUID PO ×3 (08:56→17:29)
[2022-07-04 09:43] VITALS: BMI 30.5
[2022-07-04] MEDS: Ascorbic Acid 500 MG Tablet PO (10:04)
[2022-07-04] MEDS: Potassium Chloride Oral Tablet 20 MEQ PO (11:43)
[2022-07-04 14:00] VITALS: BP 116/62; PULSE 81; RESP 16; TEMP 36.2; O2SAT 98
--- NOTE | 2022-07-04 16:00 | PCM.CONS.R ---
Documented by User: KAROL Irwin 07/04/22 16:36 Assessment & Plan Assessment/Plan (1) Acute kidney injury: (2) Chronic kidney disease, stage 3b: (3) Hypertension: (4) Urinary retention: PLAN: Plan This is a 71-year-old female with past medical history significant for hypertension, gastric bypass, history of urinary retention/bladder prolapse with history of straight catheterization at home, recent history of left mild to moderate hydronephrosis now with indwelling Mccormick catheter who was transferred to rehab unit after recent hospitalization in [facility]. We were consulted for acute kidney injury. Patient and both report patient was seen by operations officer in hospital setting first week of April for renal insufficiency. Patient has never required BIOMATERIALS ENGINEER. Patient does have an appointment with operations officer in [place] on July 19. On admission, 07/01 serum creatinine was 1.67 mg/dL. Creatinine 2.92 mg/dL yesterday and today patient's creatinine is 2.90 mg/dL. Reviewed labs from last hospitalization, on 06/26 serum creatinine 2.7 mg/dL, on 06/30 serum creatinine 1.8 mg/dL. Per past hospital documentation possible baseline serum creatinine range around 1.5 to 1.7 mg/dL. Patient is now on IV fluids. Acute kidney injury possibly from volume depletion as patient and both report appetite has been poor; there has been no recent NSAIDs, diuretics, YUNIOR inhibitor or ARB's; to note patient has also had bp fluctuations which could also be contributing to SUSAN. Renal ultrasound here did not show any hydronephrosis. Urine culture from July 03 no growth. Urinalysis from July 03 no RBCs, leukocyte Estrace 500, protein 100. We will check urine protein creatinine ratio. Recommend to continue with IV fluids as you are doing. Hopefully serum creatinine has peaked, will be leveling off and will start to improve with IV fluids. I also encouraged patient to try and increase solute and fluid intake. At this time there is no acute indication for BIOMATERIALS ENGINEER as patient is nonoliguric, there is no significant acidemia, hypervolemia or hyperkalemia; in fact patient may be mildly hypovolemic. Bicarbonate is 17, patient reports no recent diarrhea, possibly metabolic acidosis from SUSAN/CKD. If bicarbonate level does not improve we will likely add oral bicarbonate supplementation. Blood pressures have been acceptable however patient did have a low blood pressure reading of 98/53 yesterday which could have also been contributing to SUSAN. Patient is on metoprolol 25 mg twice daily, will add holding parameters. Further orders forthcoming as hospitalization evolves. Thank you for allowing us participate in the care of Ms. Wen. HPI Consult Data Date of Consult: 07/04/22 HPI Narrative HPI Narrative: CHRISTIE WEN, is a 71 F with past medical history significant for hypertension, chronic pain syndrome, MARC, anxiety, gastric bypass, colon cancer, bladder prolapse, urinary retention and urinary incontinence (prior to hospitalization patient had been performing straight catheterization at home at least 3 times daily under the direction of gynecology) who was transferred from [facility] to [facility] rehab unit after patient had been at [facility] for SUSAN, weakness and urinary retention. Patient was admitted to [facility] June 26, 2022. Patient was encouraged to go to the emergency room under the direction of her PCP as patient had lab work drawn and was found to have a creatinine of 2.79 mg/dL. Patient was admitted for weakness and urinary retention; serum creatinine was 2.71 mg/dL. Mccormick catheter was placed at that time for urinary retention and renal ultrasound showed mild to moderate left hydronephrosis. Patient has never required BIOMATERIALS ENGINEER. Per review of previous hospital documentation, apparently baseline serum creatinine range around 1.5 to 1.7 mg/dL. Lab work reviewed: SCr 06/30 1.8mg/dL. We were consulted for SUSAN on probable CKD. Per patient and , patient has never seen a operations officer in outpatient setting. reports patient first saw a operations officer when she was admitted to [facility] first week of April. She has appointment with operations officer in [place] on July 19. Patient and both report patient's appetite has been poor. She denies any nausea or vomiting. She is complaining of feeling thirsty. Patient denies any recent NSAID use. [facility] Medical History (Updated 06/30/22 @ 18:[address] Timothy Mccoy MD) Acute kidney injury Anxiety Bladder prolapse Chronic kidney disease, stage 3b Debility Diabetes mellitus Fibromyalgia History of colon cancer Hypertension Hypomagnesemia Hyponatremia Obstructive sleep apnea Urinary retention Urinary tract infection Home Medications acetaminophen 650 mg tablet,extended release (Tylenol Arthritis Pain) 650 mg PO TID pain 06/30/22 [History Last Taken Unknown] alendronate 70 mg tablet (Fosamax) 70 mg PO QWEEK Supplement 06/30/22 [History Last Taken Unknown] cholecalciferol (vitamin D3) 125 mcg (5,000 unit) tablet 125 mcg PO DAILY Supplement 06/30/22 [History Last Taken Unknown] clonazepam 0.5 mg tablet 0.5 mg PO BID Anxiety 06/30/22 [History Last Taken Unknown] docusate sodium 100 mg capsule 100 mg PO BID PRN Constipation 06/30/22 [History Last Taken Unknown] duloxetine 60 mg capsule,delayed release (Cymbalta) 60 mg PO QHS Depression 06/30/22 [History Last Taken Unknown] gabapentin 300 mg capsule 300 mg PO TID Nerve pain 06/30/22 [History Last Taken Unknown] loperamide 2 mg tablet (Imodium A-D) 2 mg PO Q6H PRN Diarrhea 06/30/22 [History Last Taken Unknown] magnesium oxide 400 mg (241.3 mg magnesium) tablet 400 mg PO DAILY Supplement 06/30/22 [History Last Taken Unknown] metoprolol tartrate 25 mg tablet 25 mg PO BID BP 06/30/22 [History Last Taken Unknown] omeprazole 40 mg capsule,delayed release 40 mg PO BID GERD 06/30/22 [History Last Taken Unknown] ondansetron HCl 4 mg/5 mL oral solution 4 mg PO Q4H PRN PRN Nausea 06/30/22 [History Last Taken Unknown] oxycodone 15 mg tablet 15 mg PO BID PRN Pain 06/30/22 [History Last Taken Unknown] potassium chloride 20 mEq tablet,extended release 20 meq PO DAILY Supplement 06/30/22 [History Last Taken Unknown] tramadol 50 mg tablet 50 mg PO BID PRN Pain 06/30/22 [History Last Taken Unknown] Allergy/AdvReac Type Severity Reaction Status Date / Time diclofenac [From Voltaren] Allergy Hives Verified 06/30/22 16:43 etodolac Allergy Hives Verified 07/03/22 07:50 fexofenadine [From Aria] Allergy Hives Verified 06/30/22 16:38 guaifenesin Allergy Hives Verified 06/30/22 16:44 ibuprofen Allergy Hives Verified 06/30/22 16:43 meloxicam [From Mobic] Allergy Hives Verified 06/30/22 16:43 nabumetone [From Relafen] Allergy Hives Verified 06/30/22 16:43 naproxen [From Naprosyn] Allergy Hives Verified 06/30/22 16:43 sulindac [From Clinoril] Allergy Hives Verified 06/30/22 16:43 Family History (Updated 06/30/22 @ 18:[address] Timothy Mccoy MD) Father Diabetes CAD (coronary artery disease) Myocardial infarction Mother Diabetes CAD (coronary artery disease) Heart failure Aunt Cancer Pancreatic. Surgical History (Updated 06/30/22 @ 18:[address] Timothy Mccoy MD) History of carpal tunnel release History of gastric bypass History of hip replacement History of lumbar laminectomy for spinal cord decompression History of partial hysterectomy History of right hemicolectomy History of tonsillectomy History of tubal ligation History of wisdom tooth extraction Social History (Updated 06/30/22 @ 18:[address] Timothy Mccoy MD) household members: spouse Smoking Status: Former smoker alcohol intake: never substance use type: does not use ROS ROS Narrative As in HPI and past medical history Physical Exam Narrative Alert and oriented x3, no apparent distress S1, S2, RRR Lung sounds clear anteriorly and posteriorly. No wheezes, rhonchi or rales noted Abdomen soft, nondistended, positive bowel sounds No edema noted bilateral lower legs feet or arms Indwelling Mccormick with clear urine in bag Lab / Micro Data Result Diagrams: 07/04/22 05:16 07/04/22 05:16 Labs: Laboratory Results - last 24 hr 07/03/22 15:41: Sodium 140, Potassium 3.9, Chloride 113 H, Carbon Dioxide 17.0 L, Anion Gap 10, BUN 32 H, Creatinine 2.92 H, Estim Creat Clear Calc 12.33, Est GFR (MDRD) Af Amer 20 L, Est GFR (MDRD) Non-Af 17 L, BUN/Creatinine Ratio 11.0, Glucose 120 H, Calcium 9.2 07/03/22 17:00: Urine Color Yellow, Urine Clarity Cloudy, Urine pH 5.0, Ur Specific [place] 1.020, Urine Protein 100 H, Urine Glucose (UA) Normal, Urine Ketones 5 H, Urine Occult Blood 150 H, Urine Nitrite Negative, Urine Bilirubin Negative, Urine Urobilinogen Normal, Ur Leukocyte Esterase 500 H, Urine RBC 0 SEEN, Urine WBC >100 SEEN, Ur Squamous Epith Cells 5-10 SEEN, Ur Renal Epithelial Cell 0-5 SEEN, Urine Bacteria 0 SEEN, Urine Mucus 0 SEEN 07/04/22 05:16: WBC 10.8, RBC 2.84 L, Hgb 8.3 L, Hct 27.4 L, MCV 96.5, MCH 29.2, MCHC 30.3 L, RDW Std Deviation 58.6 H, RDW Coeff of Luci 16.5 H, Plt Count 430, MPV 8.6, Immature Gran % (Auto) 2.100 H, Neut % (Auto) 56.1, Lymph % (Auto) 30.4, [place] % (Auto) 6.7, Eos % (Auto) 4.0, Baso % (Auto) 0.7, Absolute Neuts (auto) 6.1, Absolute Lymphs (auto) 3.29, Nucleated RBC % 0 07/04/22 05:16: Sodium 139, Potassium 4.2, Chloride 114 H, Carbon Dioxide 17.0 L, Anion Gap 8, BUN 34 H, Creatinine 2.90 H, Estim Creat Clear Calc 12.41, Est GFR (MDRD) Af Amer 20 L, Est GFR (MDRD) Non-Af 17 L, BUN/Creatinine Ratio 11.7, Glucose 95, Calcium 8.4 L 07/04/22 06:12: POC Glucose 96 07/04/22 06:20: POC Glucose 91 Micro: Microbiology 07/03/22 17:00 Urine Catheter - Mccormick Urine Culture - Preliminary Culture exhibits no growth. 07/04/22 06:52 Nasal Secretion SARS-CoV-2 Antigen (Rapid) - Final Radiology Impression Renal Ultrasound 07/03/22 07:41 IMPRESSION: No hydronephrosis. Nondistended bladder. Electronically Signed: Grisel Srinivasan MD at 4:45 EDT , Documented by User: Dr. Malia Elizondo MD 07/04/22 17:52 Assessment & Plan Assessment/Plan (1) Acute kidney injury: (2) Chronic kidney disease, stage 3b: (3) Hypertension: (4) Urinary retention: PLAN: Plan This is a 71-year-old female with past medical history significant for hypertension, gastric bypass, history of urinary retention/bladder prolapse with history of straight catheterization at home, recent history of left mild to moderate hydronephrosis now with indwelling Mccormick catheter who was transferred to rehab unit after recent hospitalization in [facility]. We were consulted for acute kidney injury. Patient and both report patient was seen by operations officer in hospital setting first week of April for renal insufficiency. Patient has never required BIOMATERIALS ENGINEER. Patient does have an appointment with operations officer in [place] on July 19. On admission, 07/01 serum creatinine was 1.67 mg/dL. Creatinine 2.92 mg/dL yesterday and today patient's creatinine is 2.90 mg/dL. Reviewed labs from last hospitalization, on 06/26 serum creatinine 2.7 mg/dL, on 06/30 serum creatinine 1.8 mg/dL. Per past hospital documentation possible baseline serum creatinine range around 1.5 to 1.7 mg/dL. Patient is now on IV fluids. Acute kidney injury possibly from volume depletion as patient and both report appetite has been poor; there has been no recent NSAIDs, diuretics, YUNIOR inhibitor or ARB's; to note patient has also had bp fluctuations which could also be contributing to SUSAN. Renal ultrasound here did not show any hydronephrosis. Urine culture from July 03 no growth. Urinalysis from July 03 no RBCs, leukocyte Estrace 500, protein 100. We will check urine protein creatinine ratio. Recommend to continue with IV fluids as you are doing. Hopefully serum creatinine has peaked, will be leveling off and will start to improve with IV fluids. I also encouraged patient to try and increase solute and fluid intake. At this time there is no acute indication for BIOMATERIALS ENGINEER as patient is nonoliguric, there is no significant acidemia, hypervolemia or hyperkalemia; in fact patient may be mildly hypovolemic. Bicarbonate is 17, patient reports no recent diarrhea, possibly metabolic acidosis from SUSAN/CKD. If bicarbonate level does not improve we will likely add oral bicarbonate supplementation. Blood pressures have been acceptable however patient did have a low blood pressure reading of 98/53 yesterday which could have also been contributing to SUSAN. Patient is on metoprolol 25 mg twice daily, will add holding parameters. Further orders forthcoming as hospitalization evolves. Thank you for allowing us participate in the care of Ms. Wen. Nephrology attending addendum: Agree with nurse practitioners assessment/plan. The patient likely has prerenal SUSAN on CKD stage IIIb. We will check urine indices. Recheck renal function tomorrow. The patient also has moderate metabolic acidosis with bicarbonate level of 17 mmol/L. Recheck bicarbonate level tomorrow. If serum bicarbonate level is any lower, we can switch IV fluid to LR. Zeke Remy MD HPI Consult Data Date of Consult: 07/04/22 [facility] Medical History (Updated 06/30/22 @ 18:[address] Timothy Mccoy MD) Acute kidney injury Anxiety Bladder prolapse Chronic kidney disease, stage 3b Debility Diabetes mellitus Fibromyalgia History of colon cancer Hypertension Hypomagnesemia Hyponatremia Obstructive sleep apnea Urinary retention Urinary tract infection Home Medications acetaminophen 650 mg tablet,extended release (Tylenol Arthritis Pain) 650 mg PO TID pain 06/30/22 [History Last Taken Unknown] alendronate 70 mg tablet (Fosamax) 70 mg PO QWEEK Supplement 06/30/22 [History Last Taken Unknown] cholecalciferol (vitamin D3) 125 mcg (5,000 unit) tablet 125 mcg PO DAILY Supplement 06/30/22 [History Last Taken Unknown] clonazepam 0.5 mg tablet 0.5 mg PO BID Anxiety 06/30/22 [History Last Taken Unknown] docusate sodium 100 mg capsule 100 mg PO BID PRN Constipation 06/30/22 [History Last Taken Unknown] duloxetine 60 mg capsule,delayed release (Cymbalta) 60 mg PO QHS Depression 06/30/22 [History Last Taken Unknown] gabapentin 300 mg capsule 300 mg PO TID Nerve pain 06/30/22 [History Last Taken Unknown] loperamide 2 mg tablet (Imodium A-D) 2 mg PO Q6H PRN Diarrhea 06/30/22 [History Last Taken Unknown] magnesium oxide 400 mg (241.3 mg magnesium) tablet 400 mg PO DAILY Supplement 06/30/22 [History Last Taken Unknown] metoprolol tartrate 25 mg tablet 25 mg PO BID BP 06/30/22 [History Last Taken Unknown] omeprazole 40 mg capsule,delayed release 40 mg PO BID GERD 06/30/22 [History Last Taken Unknown] ondansetron HCl 4 mg/5 mL oral solution 4 mg PO Q4H PRN PRN Nausea 06/30/22 [History Last Taken Unknown] oxycodone 15 mg tablet 15 mg PO BID PRN Pain 06/30/22 [History Last Taken Unknown] potassium chloride 20 mEq tablet,extended release 20 meq PO DAILY Supplement 06/30/22 [History Last Taken Unknown] tramadol 50 mg tablet 50 mg PO BID PRN Pain 06/30/22 [History Last Taken Unknown] Allergy/AdvReac Type Severity Reaction Status Date / Time diclofenac [From Voltaren] Allergy Hives Verified 06/30/22 16:43 etodolac Allergy Hives Verified 07/03/22 07:50 fexofenadine [From Aria] Allergy Hives Verified 06/30/22 16:38 guaifenesin Allergy Hives Verified 06/30/22 16:44 ibuprofen Allergy Hives Verified 06/30/22 16:43 meloxicam [From Mobic] Allergy Hives Verified 06/30/22 16:43 nabumetone [From Relafen] Allergy Hives Verified 06/30/22 16:43 naproxen [From Naprosyn] Allergy Hives Verified 06/30/22 16:43 sulindac [From Clinoril] Allergy Hives Verified 06/30/22 16:43 Family History (Updated 06/30/22 @ 18:[address] Timothy Mccoy MD) Father Diabetes CAD (coronary artery disease) Myocardial infarction Mother Diabetes CAD (coronary artery disease) Heart failure Aunt Cancer Pancreatic. Surgical History (Updated 06/30/22 @ 18:[address] Timothy Mccoy MD) History of carpal tunnel release History of gastric bypass History of hip replacement History of lumbar laminectomy for spinal cord decompression History of partial hysterectomy History of right hemicolectomy History of tonsillectomy History of tubal ligation History of wisdom tooth extraction Social History (Updated 06/30/22 @ 18:[address] Timothy Mccoy MD) household members: spouse Smoking Status: Former smoker alcohol intake: never substance use type: does not use Lab / Micro Data Result Diagrams: 07/04/22 05:16 07/04/22 05:16
--- NOTE | 2022-07-04 16:13 | PCM.PN.DRR ---
TCU RX Drug Regimen Review Subjective: TCU Admission. 71 YOF presented to outside ER with weakness. Hospitalized for weakness secondary to urinary tract infection, complicated by acute kidney injury, obstructive uropathy, hyponatremia, hypomagnesemia. Admitted to TCU with debility for strengthening and rehabilitation. Objective: Allergies diclofenac [From Voltaren] Allergy (Verified 06/30/22 16:43) Hives etodolac Allergy (Verified 07/03/22 07:50) Hives fexofenadine [From Aria] Allergy (Verified 06/30/22 16:38) Hives guaifenesin Allergy (Verified 06/30/22 16:44) Hives Tachycardia, Rash, and SOB ibuprofen Allergy (Verified 06/30/22 16:43) Hives meloxicam [From Mobic] Allergy (Verified 06/30/22 16:43) Hives nabumetone [From Relafen] Allergy (Verified 06/30/22 16:43) Hives naproxen [From Naprosyn] Allergy (Verified 06/30/22 16:43) Hives sulindac [From Clinoril] Allergy (Verified 06/30/22 16:43) Hives Current Medications Generic Name Dose Route Start Last Admin Trade Name Freq PRN Reason Stop Dose Admin Acetaminophen 1,000 mg 06/30/22 22:00 07/04/22 13:34 Acetaminophen 500 Mg Tablet PO 1,000 mg TID ABDIEL Administration Alendronate Sodium 70 mg 07/04/22 06:00 07/04/22 05:18 Alendronate Sodium 70 Mg Tablet PO 70 mg Tu@0600 ABDIEL Administration Ascorbic Acid 500 mg 07/04/22 08:00 07/04/22 10:04 Ascorbic Acid 500 Mg Tablet PO 500 mg BREAKFAST ABDIEL Administration Calamine/Phenol 1 applic 06/30/22 22:00 07/04/22 05:26 Menthol/Lanolin/Calamine/Znox 113 Gm Tube TOPICAL 1 applic BID ABDIEL Administration Protocol Cefdinir 300 mg 07/04/22 06:00 07/04/22 05:19 Cefdinir 300 Mg Capsule PO 300 mg DAILY ABDIEL Administration Clonazepam 0.5 mg 06/30/22 18:00 07/04/22 05:17 Clonazepam 0.5 Mg Tablet PO 0.5 mg BID ABDIEL Administration Docusate Sodium 100 mg 06/30/22 16:57 Docusate Sodium 100 Mg Capsule PO BID PRN PRN Constipation Duloxetine HCl 60 mg 06/30/22 22:00 07/03/22 21:00 Duloxetine Hcl 60 Mg Capsule PO 60 mg QHS ABDIEL Administration Gabapentin 300 mg 06/30/22 22:00 07/04/22 13:35 Gabapentin 300 Mg Capsule PO 300 mg TID ABDIEL Administration Sodium Chloride 1,000 mls @ 100 mls/hr 07/03/22 07:45 07/04/22 15:02 IV 100 mls/hr .Q10H ABDIEL Administration Loperamide HCl 2 mg 06/30/22 17:16 Loperamide 2 Mg Capsule PO Q6H PRN PRN Diarrhea Metoprolol Tartrate 25 mg 06/30/22 18:00 07/04/22 05:18 Metoprolol Tartrate 25 Mg Tablet PO 25 mg BID ABDIEL Administration Nutritional Formula (Lactose Free) 120 ml 07/01/22 07:45 07/04/22 11:42 Glucerna Shake 120 Ml Liquid PO 120 ml [facility]CM [facility] Administration Nystatin 1 applic 06/30/22 22:00 07/04/22 05:26 Nystatin Powder 15gm Bottle TOPICAL 1 applic BID [facility] Administration Protocol Ondansetron HCl 4 mg 06/30/22 17:16 Ondansetron Odt 4 Mg Tablet PO Q4H PRN PRN Nausea Oxycodone HCl 15 mg 06/30/22 18:00 07/04/22 05:19 Oxycodone Cr 15 Mg Tablet PO 15 mg BID [facility] Administration Pantoprazole Sodium 40 mg 06/30/22 18:00 07/04/22 05:18 Pantoprazole Sodium 40 Mg Tablet PO 40 mg BID [facility] Administration Polysaccharide Iron Complex 150 mg 07/05/22 08:00 Iron Polysaccharide Complex 150 Mg Capsule PO DAILY [facility] Potassium Chloride 20 meq 07/02/22 12:00 07/04/22 11:43 Potassium Chloride Oral Tablet 20 Meq PO 20 meq DAILY@1200 [facility] Administration Sodium Chloride 10 - 40 ml 07/03/22 09:28 0.9% Saline Lock 10 Ml Syringe IV UD PRN SALINE FLUSH Tramadol HCl 50 mg 06/30/22 16:57 Tramadol 50 Mg Tablet PO BID PRN PRN Pain Score 4-5 Tuberculin PPD 0.1 ml 07/08/22 10:00 Tuberculin,Purif.Prot.Deriv. 50 Tu/Ml Vial ID 07/08/22 10:01 X1 ONE Problem List (Last Updated 06/30/22 @ 18:[address] Timothy Mccoy MD) Bladder prolapse (Acute) History of colon cancer (Acute) Obstructive sleep apnea (Acute) Anxiety (Acute) Fibromyalgia (Acute) Chronic kidney disease, stage 3b (Acute) Urinary retention (Acute) Hypertension (Chronic) Diabetes mellitus (Acute) Urinary tract infection (Acute) Hypomagnesemia (Acute) Hyponatremia (Acute) Acute kidney injury (Acute) Debility (Acute) Vital Signs Temp Pulse Resp BP Pulse Ox O2 Del Method 97.1 F L 81 16 116/62 98 Room Air 07/04/22 14:00 07/04/22 14:00 07/04/22 14:00 07/04/22 14:00 07/04/22 14:00 07/04/22 14:00 Oxygen Delivery Method Room Air Weight: 70.942 kg Body Mass Index (BMI) 30.5 Sodium 139 mmol/L (136-145) 07/04/22 05:16 Potassium 4.2 mmol/L (3.5-5.1) 07/04/22 05:16 Chloride 114 mmol/L (98-107) H 07/04/22 05:16 Carbon Dioxide 17.0 mmol/L (21.0-32.0) L 07/04/22 05:16 Anion Gap 8 (5-15) 07/04/22 05:16 BUN 34 mg/dL (7-18) H 07/04/22 05:16 Creatinine 2.90 mg/dL (0.55-1.02) H 07/04/22 05:16 Est GFR (MDRD) Af Amer 20 mL/min (>60) L 07/04/22 05:16 Est GFR (MDRD) Non-Af 17 mL/min (>60) L 07/04/22 05:16 BUN/Creatinine Ratio 11.7 RATIO (10-20) 07/04/22 05:16 Glucose 95 mg/dL (74-106) 07/04/22 05:16 Assessment/Plan: 1. Pain: acetaminophen 1000mg PO TID, oxycodone CR 15mg PO BID and tramadol 50mg PO BID PRN pain 4-10. Resident has not had any doses of tramadol. Please continue to monitor for increased pain, PRN usage, constipation and respiratory depression. 2. Bowel: docusate 100mg PO BID PRN constipation and loperamide 2mg PO Q6H PRN diarrhea. No doses have been given. Last documented bowel movement 06/30/22. Please continue to monitor for constipation, diarrhea and PRN usage. 3. Hypertension: metoprolol tartrate 25mg PO BID. Please continue to monitor BP (last 116/62) and HR (last 81). 4. Osteoporosis: alendronate 70mg PO weekly. Please consider holding this medication until renal function improves. This medication is not recommended in a CrCl <35mL/min. Resident's current CrCl is 15.2mL/min using adjusted body weight. Thanks. Please continue to monitor for jaw pain, BMD and upset stomach. Please give this medication first thing in the morning on an empty stomach with a full glass of water. 5. GERD: pantoprazole 40mg PO BID. Please continue to monitor for S/S of GERD and diarrhea (BEERs criteria due to increased risk of C. diff infections). 6. Hypokalemia: potassium chloride 20mEq PO daily. Please continue to monitor potassium level (last 4.2mmol/L). 7. Iron deficiency (based on hemoglobin 8.3g/dL): Ferrex 150mg PO daily and ascorbic acid 500mg PO daily. Please continue to monitor hemoglobin, constipation and dark stools. 8. Nausea: ondansetron ODT 4mg PO Q4H PRN nausea. Resident has not had any doses. Please continue to monitor for nausea and PRN usage. 9. UTI: cefdinir 300mg PO daily thru 07/14/22. Please continue to monitor for S/S of infection, diarrhea, stool discoloration and renal function. Assessment/Plan for indications treated with psychotropic medications: 1. Anxiety: clonazepam 0.5mg PO BID. Please see physician note regarding GDR. Please continue to monitor for delirium/dementia (BEERs criteria), delirium/dementia (BEERs criteria) and confusion. 2. Depression: duloxetine 60mg PO QHS. Please see physician note regarding GDR. Please continue to monitor for suicidal ideation (black box warning), falls/fractures (BEERs criteria) and sodium (last 139mmol/L). 3. Neuropathic pain: gabapentin 300mg PO TID. Please consider adjusting dose based on CrCl of 15.2mL/min (using adjusted body weight) to prevent adverse [employer] ASSESSOR effects (BEERs criteria). Suggested dosing for this CrCl is 200-700mg/day in one dose. Thanks. Please continue to monitor for falls/fractures (BEERs medication) and confusion. Medical chart and medication regimen reviewed. The following medication irregularities or issues were identified: *1. Gabapentin 300mg PO TID. Please consider adjusting dose based on CrCl of 15.2mL/min (using adjusted body weight) to prevent adverse COUNTY TAX ASSESSOR effects (BEERs criteria). Suggested dosing for this CrCl is 200-700mg/day in one dose. Thanks. *2. Alendronate 70mg PO weekly. Please consider holding this medication until renal function improves. This medication is not recommended in a CrCl <35mL/min. Resident's current CrCl is 15.2mL/min using adjusted body weight. Thanks. Date of Note:: 07/04/22
[2022-07-04 17:30] VITALS: PULSE 81
[2022-07-04 19:18] LABS: Protein, Urine (Random) 64.4 mg/dL (<11.9); Protein:Creat Ratio 1333 mg/g CRE (0-200)
[2022-07-04 19:25] LABS: Urine Sodium 69 mmol/L (Not Establ.)
--- NOTE | 2022-07-04 19:53 | NURSING ---
concerned about altered mental status over last few weeks, Dr. Mccoy updated N.O. CT without contrast to head
[2022-07-04] MEDS: DULoxetine Hcl 60 MG Capsule PO (21:01)
[2022-07-05] MEDS: 0.9% Normal Saline 1,000 ML 100 ML IV ×2 (01:07→10:45)
[2022-07-05] MEDS: Gabapentin 300 MG Capsule PO ×3 (05:03→22:21)
[2022-07-05] MEDS: oxyCODONE CR 15 MG Tablet PO ×2 (05:03→17:11)
[2022-07-05] MEDS: clonazePAM 0.5 MG Tablet PO ×2 (05:03→17:10)
[2022-07-05 05:04] VITALS: BP 106/56; PULSE 78
[2022-07-05] MEDS: Acetaminophen 500 MG Tablet 1000 MG PO ×3 (05:04→22:21)
[2022-07-05] MEDS: Metoprolol Tartrate 25 MG Tablet PO ×2 (05:04→17:11)
[2022-07-05] MEDS: Pantoprazole Sodium 40 MG Tablet PO ×2 (05:05→17:11)
[2022-07-05] MEDS: Cefdinir 300 MG Capsule PO (05:05)
[2022-07-05] MEDS: Menthol/Lanolin/Calamine/Znox 113 GM Tube 1 APPLIC TOPICAL ×2 (05:13→17:13)
[2022-07-05] MEDS: Nystatin Powder 15gm Bottle 1 APPLIC TOPICAL ×2 (05:13→17:14)
[2022-07-05 05:56] LABS: Absolute Lymphocyte Count 2.45 X10^3/uL (0.83-4.51); Absolute Neutrophil Count 5.8 X10^3/uL (2.0-7.7); Basophil# 0.05 X10^3/uL; Basophil% 0.5 % (0-1); Eosinophil# 0.38 X10^3/uL; Eosinophils% 4.1 % (0-5); Hematocrit 26.4 % (37-47); Hemoglobin 8.1 g/dL (12.0-15.0); Lymphocyte # 2.45 X10^3/ul (0.83-4.51); Lymphocyte % 26.1 % (19-41); Mean Corp Hgb Conc 30.7 g/dL (32-36); Mean Corpuscular Hgb 29.5 pg (27.0-32.0); Mean Platelet Vol. 8.9 fl (6.2-12.0); Monocyte# 0.57 X10^3/uL; Monocyte% 6.1 % (0-10); NRBC Flagged by Analyzer 0 % (0-5); Neutrophil # 5.76 X10^3/uL (2.7-7.7); Neutrophil % 61.4 % (47-70); Platelet Count 419 K/mm3 (150-450); RBC Distribution Width CV 16.6 % (11.6-14.6); RBC Distribution Width SD 58.2 fl (35.1-43.9); Red Blood Count 2.75 M/mm3 (4.2-5.4); White Blood Count 9.4 K/mm3 (4.4-11.0)
[2022-07-05 06:38] LABS: Anion Gap 10 (5-15); BUN 35 mg/dL (7-18); BUN/Creat Ratio 13.1 RATIO (10-20); Calcium,Total 8.5 mg/dL (8.5-10.1); Chloride 117 mmol/L (98-107); Creatinine, Serum 2.68 mg/dL (0.55-1.02); EST Glomerular Filtration Rate 19 mL/min (>60); Est Glom Filt Rate - Afr Amer 22 mL/min (>60); Estimated Creatinine Clearance 13.43 ml/min; Glucose 85 mg/dL (74-106); Sodium Level 142 mmol/L (136-145)
[2022-07-05 06:40] LABS: Bedside Glucose 89 mg/dL (74-106)
[2022-07-05] MEDS: Glucerna Shake 120 ML LIQUID PO ×3 (07:48→17:13)
[2022-07-05] MEDS: Ascorbic Acid 500 MG Tablet PO (07:48)
[2022-07-05] MEDS: Iron Polysaccharide Complex 150 MG CAPSULE PO (07:48)
--- NOTE | 2022-07-05 09:04 | CASEMGMT ---
Social Work IDT met with patient and for care plan meeting. Discussed patient's progress in PT/OT/ST/SN. noted pt's cognition has declined, but he does manage the meds and finances at home. SW educated to [facility] insurance with NRD 07/11, EDC 07/14. SW explained insurance suggesting to begin therapy family training if plan is for pt to return home. Or if cannot care for pt at home, SW inquired about alternate DC plans. states he will be taking pt home. SW encouraged therapy training. agreed and set for 07/07 at 1230. SW to follow up after to ensure can care for pt at home at current level of care. stated pt used [facility] for therapy and nursing prior. SW to coordinate at DC. Will continue to follow. Tootie Kumar, PHILL SUPPLY AND DISTRIBUTION MANAGER
--- NOTE | 2022-07-05 10:07 | PN.RENAL_ITS ---
Subjective Subjective Following for acute kidney injury on chronic kidney disease. The patient denies chest pain, shortness of breath, or nausea. There is no diarrhea. Appetite is improving. Objective Data Objective Data Vital Signs: Vital Signs Temp Pulse Resp BP Pulse Ox O2 Del Method 97.1 F L 78 16 106/56 L 98 Room Air 07/04/22 14:00 07/05/22 05:04 07/04/22 14:00 07/05/22 05:04 07/04/22 14:00 07/04/22 14:00 Oxygen Delivery Method Room Air Weight: 70.942 kg Body Mass Index (BMI) 30.5 Intake & Output: Intake and Output for Last 24 Hours 07/03/22 07/04/22 07/05/22 23:59 23:59 23:59 Intake Total 1618.33 / 1618.33 2576.67 / 2576.67 1000 / 1000 Output Total 625 / 625 1050 / 1050 400 / 400 Balance 993.33 / 993.33 1526.67 / 1526.67 600 / 600 Lab / Micro Data Result Diagrams: 07/05/22 05:08 07/05/22 05:08 Labs: Laboratory Results - last 24 hr 07/04/22 18:40: U Random Total Protein 64.4 H, Urine Creatinine 48.30, Protein/Creatinin Ratio 1333 H 07/04/22 18:40: Ur Random Sodium 69, Urine Creatinine 48.50 07/05/22 05:08: WBC 9.4, RBC 2.75 L, Hgb 8.1 L, Hct 26.4 L, MCV 96.0, MCH 29.5, MCHC 30.7 L, RDW Std Deviation 58.2 H, RDW Coeff of Luci 16.6 H, Plt Count 419, MPV 8.9, Immature Gran % (Auto) 1.800 H, Neut % (Auto) 61.4, Lymph % (Auto) 26.1, [place] % (Auto) 6.1, Eos % (Auto) 4.1, Baso % (Auto) 0.5, Absolute Neuts (auto) 5.8, Absolute Lymphs (auto) 2.45, Nucleated RBC % 0 07/05/22 05:08: Sodium 142, Potassium 4.0, Chloride 117 H, Carbon Dioxide 15.0 L , Anion Gap 10, BUN 35 H, Creatinine 2.68 H, Estim Creat Clear Calc 13.43, Est GFR (MDRD) Af Amer 22 L, Est GFR (MDRD) Non-Af 19 L, BUN/Creatinine Ratio 13.1, Glucose 85, Calcium 8.5 07/05/22 06:21: POC Glucose 89 Micro: Microbiology 07/03/22 17:00 Urine Catheter - Mccormick Urine Culture - Preliminary Culture exhibits no growth. 07/04/22 06:52 Nasal Secretion SARS-CoV-2 Antigen (Rapid) - Final 07/03/22 10:51 Nasal Secretion SARS-CoV-2 Antigen (Rapid) - Final Physical Exam Narrative General: Alert and oriented x3, no apparent distress Cardiovascular: S1, S2, RRR Respiratory: Lung sounds clear anteriorly and posteriorly. No wheezes, rhonchi or rales noted GI: Abdomen soft, nondistended, positive bowel sounds Extremities: No edema noted bilateral lower legs feet or arms Indwelling Mccormick with clear urine in bag Assessment & Plan Assessment/Plan (1) Acute kidney injury: (2) Chronic kidney disease, stage 3b: (3) Hypertension: (4) Urinary retention: PLAN: Plan Impression/Plan: This is a 71-year-old female with past medical history significant for hypertension, gastric bypass, history of urinary retention/bladder prolapse with history of straight catheterization at home, recent history of left mild to moderate hydronephrosis now with indwelling Mccormick catheter who was transferred to TCU after recent hospitalization in [facility]. Nephrology is following for acute kidney injury. Acute kidney injury on chronic kidney disease stage G3b. The patient has CKD with baseline serum creatinine of around 1.7 mg/dL. On admission, 07/01 serum creatinine was 1.67 mg/dL. Creatinine 2.92 mg/dL on 07/03/2022 and 2.90 mg/dL yesterday on 07/04/2022. Reviewed labs from last hospitalization, on 06/26 serum creatinine 2.7 mg/dL, on 06/30 serum creatinine 1.8 mg/dL. There is significant urine protein with urine protein to creatinine ratio of 1.33 g/g (07/04/2022). Acute kidney injury is possibly from volume depletion as patient and both report appetite had been poor; there has been no recent NSAIDs, diuretics, YUNIOR inhibitor or ARB's; the patient also had bp fluctuations which could also be contributing to SUSAN. Renal ultrasound here did not show any hydronephrosis. Since appetite is improving, I will stop IV fluid so she can be disconnected from IV pole. We can bolus with IV fluid if MAP is less than 65 mmHg. I also encouraged patient to try and increase solute and fluid intake. At this time there is no acute indication for STRIPPING SHOVEL OILER as patient is nonoliguric, there is no significant acidemia, hypervolemia or hyperkalemia Recheck renal function again in a couple of days off of IV fluid. Metabolic acidosis. Bicarbonate is 15 mmol/L, patient reports no recent diarrhea, possibly metabolic acidosis from SUSAN/CKD. We will start sodium bicarbonate to help attenuate progression of CKD. We will also stop normal saline which can also exacerbate metabolic acidosis. Hypertension Blood pressures have been acceptable however patient did have a low blood pressure reading of 98/53 on 07/03/2022 which could have also been contributing to SUSAN. Patient is on metoprolol 25 mg twice daily, added holding parameters. Hypokalemia. Potassium level is acceptable currently. She is on potassium chloride at 20 mEq/day. We will continue potassium chloride for now since we are starting sodium bicarbonate. Thank you for allowing us participate in the care of Ms. Bacon.
[2022-07-05] MEDS: traMADol 50 MG Tablet PO (10:34)
--- NOTE | 2022-07-05 10:48 | NURSING ---
Addendum entered by Josephine Magaña 07/05/22 13:19: Per MRI patient needs remote for bladder stimulator to be able to put it in the right mode for MRI. Per remote is at home 45 mins away and will need charged. He said he will bring it in the morning. Updated MRI staff and Dr Mccoy. Addendum entered by Josephine Magaña 07/05/22 10:53: Reviewed MRI questions with resident and at bedside. Call from MRI staff w/ request for more info on bladder stimulator that resident has. Per he doesn't have info but reports it was placed at [facility]. This RN called clinic, left requesting return call. Original Note: 0730-Per Dr Mccoy he wants MRI of brain w/o contrast ordered, not CT scan. Paper order changed and signed by . [id number]-Spoke with Catrachita meier/ [employer], per her no authorization needed, ok to proceed with scan. Reference # [id number].
[2022-07-05] MEDS: Potassium Chloride Oral Tablet 20 MEQ PO (11:53)
[2022-07-05] MEDS: Sodium Bicarbonate 650 MG Tablet PO ×3 (13:32→22:21)
[2022-07-05 14:00] VITALS: BP 115/58; PULSE 88; RESP 14; TEMP 36.1; O2SAT 99
[2022-07-05 17:11] VITALS: PULSE 85
[2022-07-05 19:56] VITALS: PULSE 92; RESP 16; O2SAT 96
[2022-07-05] MEDS: 0.9% Saline Lock 10 ML Syringe IV (20:12)
--- NOTE | 2022-07-05 20:21 | NURSING ---
Saline lock to LT wrist removed d/t leaking, would not flush. pt noted with slightly slurred speech. pt stated it's 2021 reoriented to year & place. pt stated I do that everytime pt denies blurry vision or ABDALLA. No facial droop or arm drift noted. weakness to LT LE. UE strong bilaterally. resting in bed, call light in reach. pt watching tv.
[2022-07-05] MEDS: DULoxetine Hcl 60 MG Capsule PO (22:21)
[2022-07-05] MEDS: Mirtazapine 15 MG Tablet 7.5 MG PO (22:21)
[2022-07-06 06:30] LABS: Bedside Glucose 81 mg/dL (74-106)
[2022-07-06 06:40] VITALS: BP 124/55; PULSE 71
--- NOTE | 2022-07-06 07:34 | NURSING ---
During AM med pass pt noted to be lethargic and difficult to arouse. After physical stimuli pt opened one eye, grunted, and waved nurse to leave. This nurse explained to pt that she would need to open her eyes and speak with her before taking pills. Pt grunted at nurse again. AM meds held.
[2022-07-06 09:00] VITALS: PULSE 77; RESP 12; O2SAT 97
--- NOTE | 2022-07-06 09:41 | NURSING ---
Pt transfer down to MRI at 2138
--- NOTE | 2022-07-06 09:42 | NURSING ---
Pt difficult to arouse by staff, at bed side and does state she is not like this at home. Sternal rub effective, pt opened eyes when rolled to side. Mumbling words when asked questions, Dr. Mccoy aware and decreasing medications
[2022-07-06] MEDS: Sodium Bicarbonate 650 MG Tablet PO ×3 (11:03→21:31)
[2022-07-06] MEDS: Potassium Chloride Oral Tablet 20 MEQ PO (11:03)
[2022-07-06] MEDS: Ascorbic Acid 500 MG Tablet PO (11:03)
[2022-07-06] MEDS: Menthol/Lanolin/Calamine/Znox 113 GM Tube 1 APPLIC TOPICAL ×2 (11:05→19:00)
[2022-07-06] MEDS: Nystatin Powder 15gm Bottle 1 APPLIC TOPICAL ×2 (11:05→19:00)
[2022-07-06] MEDS: Glucerna Shake 120 ML LIQUID PO ×2 (12:13→18:55)
--- NOTE | 2022-07-06 12:24 | EKG12_ITS ---
Test Reason : IRREGULAR RHYTHM Blood Pressure : / mmHG Vent. Rate : 086 BPM Atrial Rate : 086 BPM P-R Int : 140 ms QRS Dur : 094 ms QT Int : 374 ms P-R-T Axes : 069 029 061 degrees QTc Int : 447 ms Normal sinus rhythm Normal ECG No previous ECGs available Confirmed by ALTON ALDRIDGE, RADHA ([id number]), avid editor MULU KELSEY ([id number]) on 07/11/2022 8:47:16 AM Referred By: Timothy Mccoy Confirmed By:RADHA DANG MD
[2022-07-06 12:50] VITALS: BP 156/63; PULSE 80; RESP 14; TEMP 36.7; O2SAT 99
[2022-07-06 13:00] LABS: Bedside Glucose 88 mg/dL (74-106)
[2022-07-06 14:00] VITALS: BP 146/61; PULSE 80; RESP 14; TEMP 36.2; O2SAT 96
--- NOTE | 2022-07-06 14:15 | MDS.RN ---
Pain interview for ray 07/07/22
--- NOTE | 2022-07-06 14:27 | NURSING ---
PT RETURNED TO FLOOR AT 1400 FROM MRI FOR SECOND TIME.
[2022-07-06 14:58] VITALS: PULSE 84; RESP 18; O2SAT 98
--- NOTE | 2022-07-06 15:37 | CASEMGMT ---
Social Work BIMS (09/04) and PHQ-9 )(
--- NOTE | 2022-07-06 15:41 | NURSING ---
Pt continues to be lethargic, can not keep eyes open for very long. Pt states she feels very tired. Answerers staff questions appropriately and follows commands, having difficulty gripping items and using fine motor skills.
--- NOTE | 2022-07-06 16:24 | CASEMGMT ---
Social Work BIMS (09/04) and PHQ-9 () completed for MDS assessment. SW explored positive responses. Throughout assessment, pt mainly kept her eyes closed, and head rest on back of chair. As this worker continued to ask PHQ-9 questions, pt became tearful and reached out to hold this worker's hand. SW provided emotional support and supportive listening. Pt explained the difficulty she is having with drastic change in lifestyle and functional abilities, without having medical answers to change. SW empathized and validated feelings. Pt expressing mourning loss of independence, inability to make self-understood d/t speech and cognition. SW repeated question #9, and pt again denied thoughts of or self-harm. Pt states she has the will to live. SW noted pt's support through 's daily visits and encouragement for improvement. Pt agrees. Pt expressed great appreciation for current visits and listening to me. Pt then stated, is that your mother? gesturing beside this worker. SW denied, and asked if we look alike. Pt stated yes. SW thanked patient and offered ongoing supportive visits as needed. Tootie Kumar, CORPORATE RECRUITER CERTIFIED PARALEGAL
--- NOTE | 2022-07-06 16:53 | CASEMGMT ---
Social Work Therapy canceled family training with d/t pt's decline. Therapy offered to reschedule when pt recovers. Tootie Kumar, ICHTHYOLOGIST STATISTICAL PROGRAMMER
--- NOTE | 2022-07-06 17:50 | RAD_ITS ---
STUDY: X-RAY CHEST REASON FOR EXAM: Female, 71 years old. CHEST PAIN Confusion. TECHNIQUE: XR Chest 2 Views COMPARISON: None FINDINGS: There is no demonstrated pleural abnormality. Normal size heart. Normal mediastinum and cady. Normal visualized pulmonary arteries. Normal visualized aortic arch and descending thoracic aorta. There are diffuse degenerative changes of the visualized thoracic spine. Normal visualized ribs, clavicles, and shoulders. There is no demonstrated abnormality of the visualized soft tissue structures of the upper abdomen. RAD/Chest PA and Lateral IMPRESSION: There are no acute findings. Electronically Signed: Carlo Farmer MD at 18:11 EDT ,
[2022-07-06 18:22] LABS: Absolute Lymphocyte Count 2.55 X10^3/uL (0.83-4.51); Absolute Neutrophil Count 7.7 X10^3/uL (2.0-7.7); Basophil# 0.05 X10^3/uL; Basophil% 0.4 % (0-1); Eosinophil# 0.39 X10^3/uL; Eosinophils% 3.4 % (0-5); Hematocrit 34.5 % (37-47); Hemoglobin 10.3 g/dL (12.0-15.0); Lymphocyte # 2.55 X10^3/ul (0.83-4.51); Lymphocyte % 22.1 % (19-41); Mean Corp Hgb Conc 29.9 g/dL (32-36); Mean Corpuscular Hgb 29.2 pg (27.0-32.0); Mean Corpuscular Volume 97.7 fL (81-99); Mean Platelet Vol. 8.7 fl (6.2-12.0); Monocyte# 0.71 X10^3/uL; Monocyte% 6.2 % (0-10); NRBC Flagged by Analyzer 0 % (0-5); Neutrophil # 7.68 X10^3/uL (2.7-7.7); Neutrophil % 66.6 % (47-70); Platelet Count 481 K/mm3 (150-450); RBC Distribution Width CV 17.2 % (11.6-14.6); RBC Distribution Width SD 59.7 fl (35.1-43.9); Red Blood Count 3.53 M/mm3 (4.2-5.4); White Blood Count 11.5 K/mm3 (4.4-11.0)
[2022-07-06 18:38] LABS: Anion Gap 9 (5-15); BUN 35 mg/dL (7-18); BUN/Creat Ratio 12.5 RATIO (10-20); Calcium,Total 9.3 mg/dL (8.5-10.1); Chloride 118 mmol/L (98-107); Creatinine, Serum 2.79 mg/dL (0.55-1.02); EST Glomerular Filtration Rate 18 mL/min (>60); Est Glom Filt Rate - Afr Amer 21 mL/min (>60); Glucose 106 mg/dL (74-106); Potassium 4.1 mmol/L (3.5-5.1); Sodium Level 142 mmol/L (136-145)
[2022-07-06 18:42] LABS: Mucous, Urine 0 SEEN /hpf (<or=2+); Red Blood Cells-Urine 0 SEEN /hpf (0-5); Squamous Epithelial Cells - UA 0 SEEN /hpf (5-10)
[2022-07-06 18:55] VITALS: BP 146/61; PULSE 84
[2022-07-06] MEDS: Metoprolol Tartrate 25 MG Tablet PO (18:55)
[2022-07-06] MEDS: Pantoprazole Sodium 40 MG Tablet PO (18:55)
[2022-07-06] MEDS: Gabapentin 300 MG Capsule PO (18:59)
[2022-07-06 19:08] LABS: Color, Urine Yellow (Yellow); Glucose, Dipstick Normal (Normal); Ketone-Dipstick Negative (Negative); Leukocyte Esterase-Dipstick 500 /ul (Negative); Nitrite-Dipstick Negative (Negative); Occult Blood-Urine 50 /ul (Negative); Protein-Dipstick 30 mg/dl (Negative); Urine Bilirubin Dipstick Negative (Negative); Urine Clarity Clear (Clear); Urine Urobilinogen Normal (Normal)
[2022-07-06 19:16] LABS: Bacteria 2+ /hpf (None Seen); White Blood Cells >100 SEEN /hpf (0-5)
[2022-07-06] MEDS: oxyCODONE HCl Cr 10 MG Tablet PO (19:49)
[2022-07-06] MEDS: 0.9% Normal Saline 1,000 ML 125 ML IV (20:20)
[2022-07-06] MEDS: Acetaminophen 500 MG Tablet 1000 MG PO (21:30)
[2022-07-06] MEDS: Mirtazapine 15 MG Tablet 7.5 MG PO (21:31)
[2022-07-06] MEDS: DULoxetine Hcl 60 MG Capsule PO (21:31)
[2022-07-06] MEDS: clonazePAM 0.5 MG Tablet PO (21:31)
--- NOTE | 2022-07-06 22:11 | NURSING ---
Dr. Mccoy ordered fluids for pt. This nurse attempted 2 times to start IV without success. FLAVIA Wilson attempted without success. Brim Rounder Lela was notified and came to the floor to start one. IV initiated in left AC and fluids started. During HS medpass, IV was noted to be infiltrated and was immediately stopped and discontinued. Left elbow is swollen; pt denies pain. Lela came back to the floor and successfully started IV in right AC. Fluids resumed.
[2022-07-07] MEDS: 0.9% Normal Saline 1,000 ML 125 ML IV ×3 (04:34→20:25)
[2022-07-07 06:09] VITALS: BP 113/59; PULSE 62
[2022-07-07] MEDS: Pantoprazole Sodium 40 MG Tablet PO ×2 (06:09→18:08)
[2022-07-07] MEDS: Acetaminophen 500 MG Tablet 1000 MG PO ×3 (06:09→21:39)
[2022-07-07] MEDS: Metoprolol Tartrate 25 MG Tablet PO ×2 (06:09→18:08)
[2022-07-07] MEDS: Sodium Bicarbonate 650 MG Tablet PO (06:09)
[2022-07-07] MEDS: Iron Polysaccharide Complex 150 MG CAPSULE PO (06:09)
[2022-07-07] MEDS: oxyCODONE HCl Cr 10 MG Tablet PO ×2 (06:10→18:05)
[2022-07-07 06:30] LABS: Anion Gap 8 (5-15); BUN 35 mg/dL (7-18); BUN/Creat Ratio 14.2 RATIO (10-20); Calcium,Total 8.6 mg/dL (8.5-10.1); Chloride 121 mmol/L (98-107); Creatinine, Serum 2.47 mg/dL (0.55-1.02); EST Glomerular Filtration Rate 20 mL/min (>60); Est Glom Filt Rate - Afr Amer 25 mL/min (>60); Estimated Creatinine Clearance 14.57 ml/min; Glucose 89 mg/dL (74-106); Potassium 3.8 mmol/L (3.5-5.1); Sodium Level 144 mmol/L (136-145)
[2022-07-07 06:45] LABS: Bedside Glucose 97 mg/dL (74-106)
[2022-07-07] MEDS: Menthol/Lanolin/Calamine/Znox 113 GM Tube 1 APPLIC TOPICAL ×2 (08:24→20:27)
[2022-07-07] MEDS: Glucerna Shake 120 ML LIQUID PO ×3 (08:25→18:05)
[2022-07-07] MEDS: Nystatin Powder 15gm Bottle 1 APPLIC TOPICAL ×2 (08:25→20:27)
[2022-07-07] MEDS: Ascorbic Acid 500 MG Tablet PO (08:27)
[2022-07-07] MEDS: Gabapentin 300 MG Capsule PO ×2 (08:27→18:06)
--- NOTE | 2022-07-07 09:12 | NURSING ---
Civil Litigation Attorney Note, MDS Complete
--- NOTE | 2022-07-07 11:34 | PN.RENAL_ITS ---
Subjective Subjective Follow for SUSAN on CKD Patient is sitting in chair. Admits to very poor appetite. She states she is trying to drink more fluids but states nothing tastes good. Patient denies any nausea, vomiting or diarrhea. Objective Data Objective Data Vital Signs: Vital Signs Temp Pulse Resp BP Pulse Ox O2 Del Method 97.2 F L 62 18 113/59 L 98 Room Air 07/06/22 14:00 07/07/22 06:09 07/06/22 14:58 07/07/22 06:09 07/06/22 14:58 07/06/22 14:58 Oxygen Delivery Method Room Air Weight: 70.942 kg Body Mass Index (BMI) 30.5 Intake & Output: Intake and Output for Last 24 Hours 07/05/22 07/06/22 07/07/22 23:59 23:59 23:59 Intake Total 2456.66 / 2456.66 60 / 60 1240 / 1240 Output Total 1450 / 1450 1450 / 1450 1600 / 1600 Balance 1006.66 / 1006.66 -1390 / -1390 -360 / -360 Medical Nutrition Assessment Dietitian: Malnutrition Criteria Met Start: 07/05/22 11:34 Freq: Status: Active Protocol: Document 07/05/22 11:34 JENNIFER (Rec: 07/05/22 11:34 SLA [id number]) Nutrition Malnutrition Evidence of Malnutrition Exists Yes Malnutrition (severe): Chronic Evidenced By Suboptimal Energy Intake ( Severe),Weight Loss (Severe) Clinical Problem Chronic Disease or Condition Related Malnutrition Etiology related to inadequate energy intake Signs/Symptoms as evidenced by 25.7% unintended wt loss and 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 Monitor need for therapeutic diet once po intake improves. Lab / Micro Data Result Diagrams: 07/06/22 18:10 07/07/22 05:11 Labs: Laboratory Results - last 24 hr 07/06/22 12:34: POC Glucose 88 07/06/22 18:10: WBC 11.5 H, RBC 3.53 L, Hgb 10.3 L, Hct 34.5 L, MCV 97.7, MCH 29.2, MCHC 29.9 L, RDW Std Deviation 59.7 H, RDW Coeff of Luci 17.2 H, Plt Count 481 H, MPV 8.7, Immature Gran % (Auto) 1.300 H, Neut % (Auto) 66.6, Lymph % (Auto) 22.1, Wise % (Auto) 6.2, Eos % (Auto) 3.4, Baso % (Auto) 0.4, Absolute Neuts (auto) 7.7, Absolute Lymphs (auto) 2.55, Nucleated RBC % 0 07/06/22 18:10: Sodium 142, Potassium 4.1, Chloride 118 H, Carbon Dioxide 15.0 L , Anion Gap 9, BUN 35 H, Creatinine 2.79 H, Estim Creat Clear Calc 12.90, Est GFR (MDRD) Af Amer 21 L, Est GFR (MDRD) Non-Af 18 L, BUN/Creatinine Ratio 12.5, Glucose 106, Calcium 9.3 07/06/22 18:25: Urine Color Yellow, Urine Clarity Clear, Urine pH 6.0, Ur Specific [place] 1.010, Urine Protein 30 H, Urine Glucose (UA) Normal, Urine Ketones Negative, Urine Occult Blood 50 H, Urine Nitrite Negative, Urine Bilirubin Negative, Urine Urobilinogen Normal, Ur Leukocyte Esterase 500 H, Urine RBC 0 SEEN, Urine WBC >100 SEEN, Ur Squamous Epith Cells 0 SEEN, Urine Bacteria 2+, Urine Mucus 0 SEEN 07/07/22 05:11: Sodium 144, Potassium 3.8, Chloride 121 H, Carbon Dioxide 15.0 L , Anion Gap 8, BUN 35 H, Creatinine 2.47 H, Estim Creat Clear Calc 14.57, Est GFR (MDRD) Af Amer 25 L, Est GFR (MDRD) Non-Af 20 L, BUN/Creatinine Ratio 14.2, Glucose 89, Calcium 8.6 07/07/22 06:24: POC Glucose 97 Micro: Microbiology 07/03/22 17:00 Urine Catheter - Mccormick Urine Culture - Final Enterococcus faecalis Yeast, not Joelle albicans Escherichia coli Klebsiella oxytoca 07/06/22 19:00 Mucosa - Nasopharyngeal Respiratory Panel (PCR) - Final 07/06/22 18:35 Nasal Secretion SARS-CoV-2 Antigen (Rapid) - Final 07/04/22 06:52 Nasal Secretion SARS-CoV-2 Antigen (Rapid) - Final 07/03/22 10:51 Nasal Secretion SARS-CoV-2 Antigen (Rapid) - Final Radiography Diagnostic Testing: Radiology Impression Chest X-Ray 07/06/22 17:50 IMPRESSION: There are no acute findings. Electronically Signed: Carlo Farmer MD at 18:11 EDT Reading Location ID and State: [facility] / [place] , Service support , Physical Exam Narrative General: Alert and oriented x3, no apparent distress Cardiovascular: S1, S2, RRR Respiratory: Lung sounds clear anteriorly and posteriorly. No wheezes, rhonchi or rales noted GI: Abdomen soft, nondistended, positive bowel sounds Extremities: No edema noted bilateral lower legs feet or arms Indwelling Mccormick with clear urine in bag Assessment & Plan Assessment/Plan (1) Acute kidney injury: (2) Chronic kidney disease, stage 3b: (3) Hypertension: (4) Urinary retention: PLAN: Plan Impression/Plan: This is a 71-year-old female with past medical history significant for hypertension, gastric bypass, history of urinary retention/bladder prolapse with history of straight catheterization at home, recent history of left mild to moderate hydronephrosis now with indwelling Mccormick catheter who was transferred to TCU after recent hospitalization in [facility]. Nephrology is following for acute kidney injury. Acute kidney injury on chronic kidney disease stage G3b. The patient has CKD with baseline serum creatinine of around 1.7 mg/dL. On admission, 07/01 serum creatinine was 1.67 mg/dL. Serum creatinine peaked at 2.92 mg/dL on July 03 and today her creatinine is at 2.47 mg/dL on IV fluids. Recommend to continue IV fluids for now. Reviewed labs from last hospitalization, on 06/26 serum creatinine 2.7 mg/dL, on 06/30 serum creatinine 1.8 mg/dL (SUSAN possibly from volume depletion and hydronephrosis). There is significant urine protein with urine protein to creatinine ratio of 1.33 g/g (07/04/2022). Acute kidney injury is possibly from volume depletion as patient and both report appetite had been poor; there has been no recent NSAIDs, diuretics, YUNIOR inhibitor or ARB's; the patient also had bp fluctuations which could also be contributing to SUSAN. Renal ultrasound here did not show any hydronephrosis. Encouraged patient to try and increase solute and fluid intake. At this time there is no acute indication for HEAD OF DESIGN as patient is nonoliguric, there is no significant acidemia, hypervolemia or hyperkalemia Labs ordered for Sunday. Metabolic acidosis. Bicarbonate is 15 mmol/L, patient reports no recent diarrhea, possibly metabolic acidosis from SUSAN/CKD. Continue oral sodium bicarbonate as ordered. Hypertension Blood pressures have been acceptable however patient did have a low blood pressure reading of 98/53 on 07/03/2022 which could have also been contributing to SUSAN. Patient is on metoprolol 25 mg twice daily with holding parameters. Hypokalemia. Potassium level is acceptable currently. She is on potassium chloride at 20 mEq/day. We will continue potassium chloride for now since we are starting sodium bicarbonate.
[2022-07-07] MEDS: Potassium Chloride Oral Tablet 20 MEQ PO (12:29)
[2022-07-07 14:00] VITALS: BP 93/63; PULSE 72; RESP 20; TEMP 36.3; O2SAT 94
[2022-07-07] MEDS: Sodium Bicarbonate 650 MG Tablet 1300 MG PO ×2 (15:50→21:39)
[2022-07-07 18:08] VITALS: BP 143/80; PULSE 93
[2022-07-07 18:14] VITALS: BP 143/80; PULSE 93
[2022-07-07 20:00] VITALS: PULSE 84; RESP 18; O2SAT 96
[2022-07-07] MEDS: Mirtazapine 15 MG Tablet 7.5 MG PO (21:38)
[2022-07-07] MEDS: DULoxetine Hcl 60 MG Capsule PO (21:38)
[2022-07-07] MEDS: clonazePAM 0.5 MG Tablet PO (21:38)
[2022-07-08] MEDS: 0.9% Normal Saline 1,000 ML 125 ML IV ×3 (05:26→21:57)
[2022-07-08] MEDS: oxyCODONE HCl Cr 10 MG Tablet PO ×2 (05:33→17:51)
[2022-07-08 05:34] VITALS: BP 164/74; PULSE 77
[2022-07-08] MEDS: Iron Polysaccharide Complex 150 MG CAPSULE PO (05:34)
[2022-07-08] MEDS: Pantoprazole Sodium 40 MG Tablet PO ×2 (05:34→17:42)
[2022-07-08] MEDS: Menthol/Lanolin/Calamine/Znox 113 GM Tube 1 APPLIC TOPICAL ×2 (05:34→17:44)
[2022-07-08] MEDS: Metoprolol Tartrate 25 MG Tablet PO ×2 (05:34→17:42)
[2022-07-08] MEDS: Nystatin Powder 15gm Bottle 1 APPLIC TOPICAL ×2 (05:34→17:43)
[2022-07-08] MEDS: Sodium Bicarbonate 650 MG Tablet 1300 MG PO ×3 (05:35→22:01)
[2022-07-08] MEDS: Acetaminophen 500 MG Tablet 1000 MG PO ×3 (05:35→22:01)
[2022-07-08 05:44] LABS: Absolute Lymphocyte Count 2.36 X10^3/uL (0.83-4.51); Absolute Neutrophil Count 6.3 X10^3/uL (2.0-7.7); Basophil# 0.06 X10^3/uL; Basophil% 0.6 % (0-1); Eosinophils% 4.1 % (0-5); Hematocrit 29.4 % (37-47); Hemoglobin 8.9 g/dL (12.0-15.0); Lymphocyte # 2.36 X10^3/ul (0.83-4.51); Lymphocyte % 24.1 % (19-41); Mean Corp Hgb Conc 30.3 g/dL (32-36); Mean Corpuscular Hgb 28.7 pg (27.0-32.0); Mean Corpuscular Volume 94.8 fL (81-99); Mean Platelet Vol. 9.1 fl (6.2-12.0); Monocyte# 0.61 X10^3/uL; Monocyte% 6.2 % (0-10); NRBC Flagged by Analyzer 0 % (0-5); Neutrophil # 6.28 X10^3/uL (2.7-7.7); Neutrophil % 64.2 % (47-70); Platelet Count 419 K/mm3 (150-450); RBC Distribution Width CV 17.3 % (11.6-14.6); RBC Distribution Width SD 59.4 fl (35.1-43.9); White Blood Count 9.8 K/mm3 (4.4-11.0)
[2022-07-08 06:17] LABS: Anion Gap 12 (5-15); BUN 33 mg/dL (7-18); Calcium,Total 8.8 mg/dL (8.5-10.1); Chloride 117 mmol/L (98-107); Creatinine, Serum 2.36 mg/dL (0.55-1.02); EST Glomerular Filtration Rate 21 mL/min (>60); Est Glom Filt Rate - Afr Amer 26 mL/min (>60); Estimated Creatinine Clearance 15.25 ml/min; Glucose 93 mg/dL (74-106); Potassium 3.6 mmol/L (3.5-5.1); Sodium Level 143 mmol/L (136-145)
[2022-07-08 06:31] LABS: Bedside Glucose 90 mg/dL (74-106)
[2022-07-08] MEDS: Glucerna Shake 120 ML LIQUID PO ×3 (07:53→17:42)
[2022-07-08] MEDS: Gabapentin 300 MG Capsule PO ×2 (09:18→17:43)
[2022-07-08] MEDS: Ascorbic Acid 500 MG Tablet PO (09:19)
[2022-07-08] MEDS: Tuberculin,Purif.prot.deriv. 50 TU/ML Vial 0.1 ML ID (09:21)
[2022-07-08] MEDS: Potassium Chloride Oral Tablet 20 MEQ PO (12:15)
[2022-07-08 14:00] VITALS: BP 128/72; PULSE 72; RESP 16; TEMP 36.7; O2SAT 97
[2022-07-08 17:42] VITALS: PULSE 72
[2022-07-08] MEDS: clonazePAM 0.5 MG Tablet PO (21:59)
[2022-07-08] MEDS: Mirtazapine 15 MG Tablet 7.5 MG PO (21:59)
[2022-07-08 22:00] VITALS: PULSE 75; RESP 16; O2SAT 99
[2022-07-08] MEDS: DULoxetine Hcl 60 MG Capsule PO (22:01)
[2022-07-09] MEDS: 0.9% Normal Saline 1,000 ML 125 ML IV ×3 (06:30→22:44)
[2022-07-09 06:31] LABS: Bedside Glucose 74 mg/dL (74-106)
--- NOTE | 2022-07-09 06:43 | NURSING ---
Patient refused 0600 medications at this time, states I don't want it despite attempts to educate. Patient difficult to awaken initially. Now alert, awake, and talkative, continues to decline medications. Written communication left for Dr. Mccoy regarding refusal of meds and difficulty awakening in AM, patient takes RTN Klonopin at . No distress observed or reported. Resps even and unlabored. call light in reach.
[2022-07-09 07:15] LABS: Anion Gap 9 (5-15); BUN 30 mg/dL (7-18); BUN/Creat Ratio 14.2 RATIO (10-20); Chloride 122 mmol/L (98-107); Creatinine, Serum 2.11 mg/dL (0.55-1.02); EST Glomerular Filtration Rate 24 mL/min (>60); Est Glom Filt Rate - Afr Amer 30 mL/min (>60); Estimated Creatinine Clearance 17.06 ml/min; Glucose 87 mg/dL (74-106); Potassium 3.7 mmol/L (3.5-5.1); Sodium Level 147 mmol/L (136-145)
[2022-07-09 08:53] VITALS: BP 125/69; PULSE 68; RESP 16; TEMP 36.8; O2SAT 100
[2022-07-09 09:01] VITALS: BP 125/69; PULSE 68
[2022-07-09] MEDS: Ascorbic Acid 500 MG Tablet PO (09:01)
[2022-07-09] MEDS: Glucerna Shake 120 ML LIQUID PO ×3 (09:01→18:21)
[2022-07-09] MEDS: Metoprolol Tartrate 25 MG Tablet PO ×2 (09:01→18:24)
[2022-07-09] MEDS: Gabapentin 300 MG Capsule PO ×2 (09:01→18:21)
--- NOTE | 2022-07-09 09:14 | NURSING ---
Pt difficult to awaken this AM refusing AM medications. Dr. Mccoy updated and N.O. to discontinue Klonopin 0.5mg. Order read back.
[2022-07-09 09:22] VITALS: O2SAT 100
[2022-07-09] MEDS: Potassium Chloride Oral Tablet 20 MEQ PO (12:10)
[2022-07-09 14:00] VITALS: BP 135/77; PULSE 79; RESP 16; TEMP 37; O2SAT 95
[2022-07-09] MEDS: Acetaminophen 500 MG Tablet 1000 MG PO ×2 (14:35→21:03)
[2022-07-09] MEDS: Sodium Bicarbonate 650 MG Tablet 1300 MG PO ×2 (14:35→21:03)
[2022-07-09] MEDS: Menthol/Lanolin/Calamine/Znox 113 GM Tube 1 APPLIC TOPICAL (18:21)
[2022-07-09 18:24] VITALS: BP 160/78; PULSE 73
[2022-07-09] MEDS: Nystatin Powder 15gm Bottle 1 APPLIC TOPICAL (18:25)
[2022-07-09] MEDS: Pantoprazole Sodium 40 MG Tablet PO (18:25)
[2022-07-09] MEDS: Mirtazapine 15 MG Tablet 7.5 MG PO (21:04)
[2022-07-09] MEDS: DULoxetine Hcl 60 MG Capsule PO (21:04)
[2022-07-10] MEDS: Sodium Bicarbonate 650 MG Tablet 1300 MG PO ×3 (04:47→20:18)
[2022-07-10 04:48] VITALS: BP 143/62; PULSE 73
[2022-07-10] MEDS: Metoprolol Tartrate 25 MG Tablet PO ×2 (04:48→17:25)
[2022-07-10] MEDS: Iron Polysaccharide Complex 150 MG CAPSULE PO (04:48)
[2022-07-10] MEDS: Pantoprazole Sodium 40 MG Tablet PO ×2 (04:48→17:25)
[2022-07-10] MEDS: Acetaminophen 500 MG Tablet 1000 MG PO ×3 (04:48→20:18)
[2022-07-10] MEDS: Nystatin Powder 15gm Bottle 1 APPLIC TOPICAL ×2 (04:54→17:24)
[2022-07-10] MEDS: oxyCODONE HCl Cr 10 MG Tablet PO (04:54)
[2022-07-10] MEDS: Menthol/Lanolin/Calamine/Znox 113 GM Tube 1 APPLIC TOPICAL ×2 (04:54→17:23)
[2022-07-10 06:33] LABS: Anion Gap 9 (5-15); BUN 28 mg/dL (7-18); BUN/Creat Ratio 14.7 RATIO (10-20); Calcium,Total 7.9 mg/dL (8.5-10.1); Chloride 119 mmol/L (98-107); Creatinine, Serum 1.91 mg/dL (0.55-1.02); EST Glomerular Filtration Rate 27 mL/min (>60); Est Glom Filt Rate - Afr Amer 33 mL/min (>60); Estimated Creatinine Clearance 18.84 ml/min; Glucose 86 mg/dL (74-106); Potassium 3.6 mmol/L (3.5-5.1); Sodium Level 145 mmol/L (136-145)
[2022-07-10] MEDS: 0.9% Normal Saline 1,000 ML 125 ML IV ×2 (06:38→15:21)
[2022-07-10 07:10] LABS: Bedside Glucose 86 mg/dL (74-106)
[2022-07-10] MEDS: Ascorbic Acid 500 MG Tablet PO (08:09)
[2022-07-10] MEDS: Glucerna Shake 120 ML LIQUID PO ×3 (08:09→17:23)
[2022-07-10] MEDS: Potassium Chloride Oral Tablet 20 MEQ PO (12:06)
[2022-07-10 14:00] VITALS: BP 139/79; PULSE 78; RESP 16; TEMP 36.1; O2SAT 96
--- NOTE | 2022-07-10 15:01 | PN.RENAL_ITS ---
Subjective Subjective Sitting in chair. at bedside. Reports feeling much better today. Reports appetite improving. Reports feeling not as lethargic today. Objective Data Objective Data Vital Signs: Vital Signs Temp Pulse Resp BP Pulse Ox O2 Del Method 96.9 F L 78 16 139/79 H 96 Room Air 07/10/22 14:00 07/10/22 14:00 07/10/22 14:00 07/10/22 14:00 07/10/22 14:00 07/10/22 14:00 Oxygen Delivery Method Room Air Weight: 70.942 kg Body Mass Index (BMI) 30.5 Intake & Output: Intake and Output for Last 24 Hours 07/08/22 07/09/22 07/10/22 23:59 23:59 23:59 Intake Total 3252.08 / 3252.08 3840 / 3840 1707.5 / 1707.5 Output Total 3200 / 3200 2350 / 2350 1999 / 1999 Balance 52.08 / 52.08 1490 / 1490 -292.5 / -292.5 Medical Nutrition Assessment Dietitian: Malnutrition Criteria Met Start: 07/05/22 11:34 Freq: Status: Active Protocol: Document 07/05/22 11:34 JENNIFER (Rec: 07/05/22 11:34 SLA [id number]) Nutrition Malnutrition Evidence of Malnutrition Exists Yes Malnutrition (severe): Chronic Evidenced By Suboptimal Energy Intake ( Severe),Weight Loss (Severe) Clinical Problem Chronic Disease or Condition Related Malnutrition Etiology related to inadequate energy intake Signs/Symptoms as evidenced by 25.7% unintended wt loss and 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 Monitor need for therapeutic diet once po intake improves. Lab / Micro Data Result Diagrams: 07/08/22 04:38 07/10/22 05:41 Labs: Laboratory Results - last 24 hr 07/10/22 05:41: Sodium 145, Potassium 3.6, Chloride 119 H, Carbon Dioxide 17.0 L , Anion Gap 9, BUN 28 H, Creatinine 1.91 H, Estim Creat Clear Calc 18.84, Est GFR (MDRD) Af Amer 33 L, Est GFR (MDRD) Non-Af 27 L, BUN/Creatinine Ratio 14.7, Glucose 86, Calcium 7.9 L 07/10/22 06:16: POC Glucose 86 Micro: Microbiology 07/06/22 18:25 Urine Catheter - Mccormick Urine Culture - Final Yeast, not Joelle albicans 07/03/22 17:00 Urine Catheter - Mccormick Urine Culture - Final Enterococcus faecalis Yeast, not Joelle albicans Escherichia coli Klebsiella oxytoca 07/06/22 19:00 Mucosa - Nasopharyngeal Respiratory Panel (PCR) - Final 07/06/22 18:35 Nasal Secretion SARS-CoV-2 Antigen (Rapid) - Final 07/04/22 06:52 Nasal Secretion SARS-CoV-2 Antigen (Rapid) - Final 07/03/22 10:51 Nasal Secretion SARS-CoV-2 Antigen (Rapid) - Final Physical Exam Narrative General: Alert and oriented x3, no apparent distress Cardiovascular: S1, S2, RRR Respiratory: Lung sounds clear anteriorly and posteriorly. No wheezes, rhonchi or rales noted GI: Abdomen soft, nondistended, positive bowel sounds Extremities: No edema noted bilateral lower legs feet or arms Indwelling Mccormick with clear urine in bag Assessment & Plan Assessment/Plan (1) Acute kidney injury: (2) Chronic kidney disease, stage 3b: (3) Hypertension: (4) Urinary retention: PLAN: Plan Impression/Plan: This is a 71-year-old female with past medical history significant for hypertension, gastric bypass, history of urinary retention/bladder prolapse with history of straight catheterization at home, recent history of left mild to m oderate hydronephrosis now with indwelling Mccormick catheter who was transferred to TCU after recent hospitalization in [facility]. Nephrology is following for acute kidney injury. Acute kidney injury on chronic kidney disease stage G3b. The patient has CKD with baseline serum creatinine of around 1.7 mg/dL. On admission, 07/01 serum creatinine was 1.67 mg/dL. Serum creatinine peaked at 2.92 mg/dL on July 03 and today her creatinine is at 1.91 mg/dL on IV fluids. Can stop IV fluids if okay with Dr. Mccoy. Patient does not need daily labs, will check BMP on Sunday and see how kidney function is off IV fluids. Mentation seems to have improved and patient does not seem as lethargic today with adjusting medications, patient is off gabapentin. Reviewed labs from last hospitalization, on 06/26 serum creatinine 2.7 mg/dL, on 06/30 serum creatinine 1.8 mg/dL (SUSAN possibly from volume depletion and hydronephrosis). Patient has appointment with spool maker end of June. There is significant urine protein with urine protein to creatinine ratio of 1.33 g/g (07/04/2022). Acute kidney injury is possibly from volume depletion as patient and both report appetite had been poor; there has been no recent NSAIDs, diuretics, YUNIOR inhibitor or ARB's; the patient also had bp fluctuations which could also have contributed to SUSAN. Renal ultrasound here did not show any hydronephrosis. Encouraged patient to try and increase solute and fluid intake. At this time there is no acute indication for IDENTITY ACCESS MANAGEMENT ARCHITECT as patient is nonoliguric, there is no significant acidemia, hypervolemia or hyperkalemia Metabolic acidosis. Bicarbonate is 17 mmol/L, patient reports no recent diarrhea, possibly metabolic acidosis from SUSAN/CKD. Continue oral sodium bicarbonate as ordered. Hypertension Blood pressures have been acceptable and improved. Patient did have a low blood pressure reading of 98/53 on 07/03/2022 which could have also been contributing to SUSAN. Patient is on metoprolol 25 mg twice daily with holding parameters. Hypokalemia. Potassium level is acceptable currently. She is on potassium chloride at 20 mEq/day. We will continue potassium chloride for now since starting sodium bicar bonate.
[2022-07-10 17:25] VITALS: BP 139/79; PULSE 78
[2022-07-10] MEDS: Mirtazapine 15 MG Tablet 7.5 MG PO (20:18)
[2022-07-10] MEDS: DULoxetine Hcl 60 MG Capsule PO (20:19)
[2022-07-10 20:30] VITALS: O2SAT 95
[2022-07-11] MEDS: oxyCODONE HCl Cr 10 MG Tablet PO (05:35)
[2022-07-11 05:39] VITALS: BP 104/58; PULSE 65
[2022-07-11] MEDS: Acetaminophen 500 MG Tablet 1000 MG PO ×3 (05:39→21:04)
[2022-07-11] MEDS: Metoprolol Tartrate 25 MG Tablet PO ×2 (05:39→17:18)
[2022-07-11] MEDS: Iron Polysaccharide Complex 150 MG CAPSULE PO (05:40)
[2022-07-11] MEDS: Alendronate Sodium 70 MG Tablet PO (05:40)
[2022-07-11] MEDS: Sodium Bicarbonate 650 MG Tablet 1300 MG PO ×3 (05:40→21:04)
[2022-07-11] MEDS: Pantoprazole Sodium 40 MG Tablet PO ×2 (05:40→17:17)
[2022-07-11] MEDS: Menthol/Lanolin/Calamine/Znox 113 GM Tube 1 APPLIC TOPICAL ×2 (05:42→17:18)
[2022-07-11] MEDS: Nystatin Powder 15gm Bottle 1 APPLIC TOPICAL ×2 (05:49→17:18)
[2022-07-11 06:18] LABS: Anion Gap 9 (5-15); BUN 31 mg/dL (7-18); BUN/Creat Ratio 16.8 RATIO (10-20); Calcium,Total 7.9 mg/dL (8.5-10.1); Chloride 117 mmol/L (98-107); Creatinine, Serum 1.85 mg/dL (0.55-1.02); EST Glomerular Filtration Rate 28 mL/min (>60); Est Glom Filt Rate - Afr Amer 34 mL/min (>60); Estimated Creatinine Clearance 19.45 ml/min; Glucose 88 mg/dL (74-106); Potassium 3.5 mmol/L (3.5-5.1); Sodium Level 144 mmol/L (136-145)
[2022-07-11 06:30] LABS: Bedside Glucose 85 mg/dL (74-106)
[2022-07-11] MEDS: Ascorbic Acid 500 MG Tablet PO (08:05)
[2022-07-11] MEDS: Loperamide 2 MG Capsule PO ×2 (08:05→18:39)
[2022-07-11] MEDS: Glucerna Shake 120 ML LIQUID PO (08:05)
[2022-07-11 09:47] VITALS: BMI 32.3
[2022-07-11] MEDS: Potassium Chloride Oral Tablet 20 MEQ PO (11:13)
[2022-07-11 13:46] VITALS: BP 150/73; PULSE 76; RESP 17; TEMP 36.1; O2SAT 96
[2022-07-11] MEDS: 0.9% Saline Lock 10 ML Syringe IV (13:50)
[2022-07-11 15:37] VITALS: PULSE 82; RESP 16; O2SAT 98
[2022-07-11 17:18] VITALS: BP 151/66; PULSE 72
[2022-07-11] MEDS: traMADol 50 MG Tablet PO (21:03)
[2022-07-11] MEDS: DULoxetine Hcl 60 MG Capsule PO (21:03)
[2022-07-11] MEDS: MELATONIN 10 MG TABLET PO (21:04)
[2022-07-11] MEDS: Mirtazapine 15 MG Tablet 7.5 MG PO (21:05)
[2022-07-12] MEDS: Nystatin Powder 15gm Bottle 1 APPLIC TOPICAL ×2 (05:04→17:20)
[2022-07-12] MEDS: Menthol/Lanolin/Calamine/Znox 113 GM Tube 1 APPLIC TOPICAL ×2 (05:05→18:13)
[2022-07-12] MEDS: Pantoprazole Sodium 40 MG Tablet PO ×2 (05:05→17:20)
[2022-07-12] MEDS: Iron Polysaccharide Complex 150 MG CAPSULE PO (05:05)
[2022-07-12 05:06] VITALS: BP 111/91; PULSE 83
[2022-07-12] MEDS: Metoprolol Tartrate 25 MG Tablet PO ×2 (05:06→17:21)
[2022-07-12] MEDS: Acetaminophen 500 MG Tablet 1000 MG PO ×3 (05:06→22:01)
[2022-07-12] MEDS: Sodium Bicarbonate 650 MG Tablet 1300 MG PO ×3 (05:06→22:03)
[2022-07-12 06:09] LABS: Anion Gap 8 (5-15); BUN 28 mg/dL (7-18); BUN/Creat Ratio 13.7 RATIO (10-20); Calcium,Total 7.7 mg/dL (8.5-10.1); Chloride 117 mmol/L (98-107); Creatinine, Serum 2.05 mg/dL (0.55-1.02); EST Glomerular Filtration Rate 25 mL/min (>60); Est Glom Filt Rate - Afr Amer 31 mL/min (>60); Estimated Creatinine Clearance 17.56 ml/min; Glucose 82 mg/dL (74-106); Sodium Level 145 mmol/L (136-145)
[2022-07-12 06:41] LABS: Bedside Glucose 83 mg/dL (74-106)
[2022-07-12] MEDS: Ascorbic Acid 500 MG Tablet PO (08:05)
[2022-07-12] MEDS: Glucerna Shake 120 ML LIQUID PO ×3 (08:09→17:20)
--- NOTE | 2022-07-12 09:02 | NURSING ---
notified nephrology via answering service per Dr Mccoy order, awaiting return call.
--- NOTE | 2022-07-12 11:30 | PN.RENAL_ITS ---
Subjective Subjective Seen during physical therapy session. No complaints today. No overnight events. Objective Data Objective Data Vital Signs: Vital Signs Temp Pulse Resp BP Pulse Ox O2 Del Method 96.9 F L 83 16 111/91 H 98 Room Air 07/11/22 13:46 07/12/22 05:06 07/11/22 15:37 07/12/22 05:06 07/11/22 15:37 07/11/22 15:37 Oxygen Delivery Method Room Air Weight: 74.956 kg Body Mass Index (BMI) 32.3 Intake & Output: Intake and Output for Last 24 Hours 07/10/22 07/11/22 07/12/22 23:59 23:59 23:59 Intake Total 3345.83 / 3345.83 1120 / 1120 120 / 120 Output Total 2950 / 2950 3050 / 3050 700 / 700 Balance 395.83 / 395.83 -1930 / -1930 -580 / -580 Medical Nutrition Assessment Dietitian: Malnutrition Criteria Met Start: 07/05/22 11:34 Freq: Status: Active Protocol: Document 07/05/22 11:34 JENNIFER (Rec: 07/05/22 11:34 SLA [id number]) Nutrition Malnutrition Evidence of Malnutrition Exists Yes Malnutrition (severe): Chronic Evidenced By Suboptimal Energy Intake ( Severe),Weight Loss (Severe) Clinical Problem Chronic Disease or Condition Related Malnutrition Etiology related to inadequate energy intake Signs/Symptoms as evidenced by 25.7% unintended wt loss and 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 Monitor need for therapeutic diet once po intake improves. Lab / Micro Data Result Diagrams: 07/08/22 04:38 07/12/22 05:17 Labs: Laboratory Results - last 24 hr 07/12/22 05:17: Sodium 145, Potassium 4.0, Chloride 117 H, Carbon Dioxide 20.0 L , Anion Gap 8, BUN 28 H, Creatinine 2.05 H, Estim Creat Clear Calc 17.56, Est GFR (MDRD) Af Amer 31 L, Est GFR (MDRD) Non-Af 25 L, BUN/Creatinine Ratio 13.7, Glucose 82, Calcium 7.7 L 07/12/22 06:13: POC Glucose 83 Micro: Microbiology 07/06/22 18:25 Urine Catheter - Mccormick Urine Culture - Final Yeast, not Joelle albicans 07/03/22 17:00 Urine Catheter - Mccormick Urine Culture - Final Enterococcus faecalis Yeast, not Joelle albicans Escherichia coli Klebsiella oxytoca 07/06/22 19:00 Mucosa - Nasopharyngeal Respiratory Panel (PCR) - Final 07/06/22 18:35 Nasal Secretion SARS-CoV-2 Antigen (Rapid) - Final 07/04/22 06:52 Nasal Secretion SARS-CoV-2 Antigen (Rapid) - Final 07/03/22 10:51 Nasal Secretion SARS-CoV-2 Antigen (Rapid) - Final Physical Exam Narrative General: Alert and oriented x3, no apparent distress Cardiovascular: S1, S2, RRR Respiratory: Lung sounds clear anteriorly and posteriorly. No wheezes, rhonchi or rales noted GI: Abdomen soft, nondistended, positive bowel sounds Extremities: No edema noted bilateral lower legs feet or arms Indwelling Mccormick with clear urine in bag Assessment & Plan Assessment/Plan (1) Acute kidney injury: (2) Chronic kidney disease, stage 3b: (3) Hypertension: (4) Urinary retention: PLAN: Plan Impression/Plan: This is a 71-year-old female with past medical history significant for hypertension, gastric bypass, history of urinary retention/bladder prolapse with history of straight catheterization at home, recent history of left mild to moderate hydronephrosis now with indwelling Mccormick catheter who was transferred to TCU after recent hospitalization in [facility]. Nephrology is following for acute kidney injury. Acute kidney injury on chronic kidney disease stage G3b. The patient has CKD with baseline serum creatinine of around 1.7 mg/dL. On admission, 07/01 serum creatinine was 1.67 mg/dL. Serum creatinine peaked at 2.92 mg/dL on July 03. Patient was started on IVF. There was noted improvement in kidney function with SCr improving to 1.91mg/dL on 07/10. IVF were stopped so to see how kidney function is off IVF. SCr 1.85 07/11 and SCr 2.05mg/dL today. Patient states had episode of loose BM yesterday and still states her oral intake is minimal. I encouraged patient to try and increase/push solute and fluid intake. We reviewed appropriate amount of fluids per day. Her output may be more than input. Likely fluctuations in SCr from hemodynamics but also may be near baseline CKD. Mentation improved and patient does not as lethargic today with adjusting medications, patient is off gabapentin. Reviewed labs from last hospitalization, on 06/26 serum creatinine 2.7 mg/dL, on 06/30 serum creatinine 1.8 mg/dL (SUSAN possibly from volume depletion and hydronephrosis). Patient has appointment with machine or machinery mechanic end of June. There is significant urine protein with urine protein to creatinine ratio of 1.33 g/g (07/04/2022). Acute kidney injury is possibly from volume depletion as patient and both report appetite had been poor; there has been no recent NSAIDs, diuretics, YUNIOR inhibitor or ARB's; the patient also had bp fluctuations which could also have contributed to SUSAN. Renal ultrasound here did not show any hydronephrosis. At this time there is no acute indication for ANTHROPOLOGY PROFESSOR as patient is nonoliguric, there is no significant acidemia, hypervolemia or hyperkalemia Metabolic acidosis. Bicarbonate is improving, up to 20mmol/L today. No recent diarrhea, possibly metabolic acidosis from SUSAN/CKD. Continue oral sodium bicarbonate as ordered. Hypertension Blood pressures have been acceptable and improved. Patient did have a low blood pressure reading of 98/53 on 07/03/2022 which could have also been contributing to SUSAN. Patient is on metoprolol 25 mg twice daily with holding parameters. Hypokalemia. Potassium level is acceptable currently. She is on potassium chloride at 20 mEq/day. We will continue potassium chloride for now since starting sodium bicarbonate.
[2022-07-12] MEDS: Potassium Chloride Oral Tablet 20 MEQ PO (12:02)
[2022-07-12 14:00] VITALS: BP 138/56; PULSE 83; RESP 16; TEMP 36.3; O2SAT 98
[2022-07-12 17:21] VITALS: PULSE 72
[2022-07-12 20:34] VITALS: PULSE 69; RESP 14; O2SAT 98
[2022-07-12] MEDS: clonazePAM 0.5 MG Tablet PO (22:00)
[2022-07-12] MEDS: Mirtazapine 15 MG Tablet 7.5 MG PO (22:01)
[2022-07-12] MEDS: DULoxetine Hcl 60 MG Capsule PO (22:03)
[2022-07-13] MEDS: Loperamide 2 MG Capsule PO ×2 (03:40→11:30)
[2022-07-13] MEDS: Nystatin Powder 15gm Bottle 1 APPLIC TOPICAL ×2 (05:49→21:22)
[2022-07-13] MEDS: Menthol/Lanolin/Calamine/Znox 113 GM Tube 1 APPLIC TOPICAL ×2 (05:50→17:42)
--- NOTE | 2022-07-13 05:55 | NURSING ---
Patient declined all oral 0600 medications despite education x3 attempts, patient states I'm going to hold off on those until breakfast. Patient encouraged to comply with medications as ordered, patient verbalizes understanding, states I will try again around breakfast. Denies requests. Call light in reach.
[2022-07-13 05:56] VITALS: BP 123/51; PULSE 82; RESP 16
[2022-07-13 06:37] LABS: Anion Gap 6 (5-15); BUN 31 mg/dL (7-18); BUN/Creat Ratio 15.2 RATIO (10-20); Calcium,Total 7.4 mg/dL (8.5-10.1); Chloride 117 mmol/L (98-107); Creatinine, Serum 2.04 mg/dL (0.55-1.02); EST Glomerular Filtration Rate 25 mL/min (>60); Est Glom Filt Rate - Afr Amer 31 mL/min (>60); Estimated Creatinine Clearance 17.64 ml/min; Glucose 90 mg/dL (74-106); Potassium 3.8 mmol/L (3.5-5.1); Sodium Level 144 mmol/L (136-145)
[2022-07-13 06:45] LABS: Bedside Glucose 99 mg/dL (74-106)
[2022-07-13] MEDS: Sodium Bicarbonate 650 MG Tablet 1300 MG PO ×3 (08:33→21:24)
[2022-07-13] MEDS: Acetaminophen 500 MG Tablet 1000 MG PO ×3 (08:34→21:25)
[2022-07-13] MEDS: Ascorbic Acid 500 MG Tablet PO (08:34)
[2022-07-13] MEDS: Pantoprazole Sodium 40 MG Tablet PO ×2 (08:40→17:43)
[2022-07-13 08:41] VITALS: BP 151/70; PULSE 79
[2022-07-13] MEDS: Metoprolol Tartrate 25 MG Tablet PO ×2 (08:41→17:43)
[2022-07-13 08:47] VITALS: BP 151/70; PULSE 79
[2022-07-13] MEDS: Iron Polysaccharide Complex 150 MG CAPSULE PO (10:15)
[2022-07-13] MEDS: Potassium Chloride Oral Tablet 20 MEQ PO (11:25)
--- NOTE | 2022-07-13 11:38 | MDS.RN ---
Information for the mds was obtained from review of the clinical record, interview of resident, staff, and direct observation of resident's care.
[2022-07-13 13:53] VITALS: BP 139/55; PULSE 80; RESP 19; TEMP 37.2; O2SAT 97
[2022-07-13 17:43] VITALS: BP 139/55; PULSE 80
[2022-07-13] MEDS: DULoxetine Hcl 60 MG Capsule PO (21:22)
[2022-07-13] MEDS: Mirtazapine 15 MG Tablet 7.5 MG PO (21:22)
[2022-07-13] MEDS: clonazePAM 0.5 MG Tablet PO (21:23)
[2022-07-13] MEDS: traMADol 50 MG Tablet PO (21:24)
[2022-07-14 00:52] VITALS: PULSE 83; RESP 18; O2SAT 96
[2022-07-14] MEDS: Menthol/Lanolin/Calamine/Znox 113 GM Tube 1 APPLIC TOPICAL ×2 (05:01→17:43)
[2022-07-14] MEDS: Nystatin Powder 15gm Bottle 1 APPLIC TOPICAL ×2 (05:01→17:43)
[2022-07-14 05:04] VITALS: BP 134/62; PULSE 82
[2022-07-14] MEDS: Acetaminophen 500 MG Tablet 1000 MG PO ×3 (05:04→21:49)
[2022-07-14] MEDS: Metoprolol Tartrate 25 MG Tablet PO ×2 (05:04→17:41)
[2022-07-14] MEDS: Pantoprazole Sodium 40 MG Tablet PO ×2 (05:04→17:42)
[2022-07-14] MEDS: Iron Polysaccharide Complex 150 MG CAPSULE PO (05:05)
[2022-07-14] MEDS: Sodium Bicarbonate 650 MG Tablet 1300 MG PO ×3 (05:05→21:49)
[2022-07-14 06:17] LABS: Anion Gap 8 (5-15); BUN 28 mg/dL (7-18); BUN/Creat Ratio 14.7 RATIO (10-20); Calcium,Total 6.8 mg/dL (8.5-10.1); Chloride 115 mmol/L (98-107); EST Glomerular Filtration Rate 28 mL/min (>60); Est Glom Filt Rate - Afr Amer 33 mL/min (>60); Estimated Creatinine Clearance 18.94 ml/min; Glucose 82 mg/dL (74-106); Sodium Level 145 mmol/L (136-145)
[2022-07-14 06:40] LABS: Bedside Glucose 85 mg/dL (74-106)
[2022-07-14] MEDS: Ascorbic Acid 500 MG Tablet PO (08:31)
[2022-07-14 08:56] VITALS: PULSE 64; RESP 16; O2SAT 97
--- NOTE | 2022-07-14 11:07 | PCM.PN.REN ---
Subjective Subjective Sitting in chair, working with therapy. Denies any complaints. Denies any recent nausea, vomiting or diarrhea. Reports that her appetite and fluid intake have improved. Objective Data Objective Data Vital Signs: Vital Signs Temp Pulse Resp BP Pulse Ox O2 Del Method 98.9 F 64 16 134/62 H 97 Room Air 07/13/22 13:53 07/14/22 08:56 07/14/22 08:56 07/14/22 05:04 07/14/22 08:56 07/14/22 08:56 Oxygen Delivery Method Room Air Weight: 74.956 kg Body Mass Index (BMI) 32.3 Intake & Output: Intake and Output for Last 24 Hours 07/12/22 07/13/22 07/14/22 23:59 23:59 23:59 Intake Total 360 / 360 960 / 960 440 / 440 Output Total 1450 / 1450 1875 / 1875 800 / 800 Balance -1090 / -1090 -915 / -915 -360 / -360 Medical Nutrition Assessment Dietitian: Malnutrition Criteria Met Start: 07/05/22 11:34 Freq: Status: Active Protocol: Document 07/05/22 11:34 SLA (Rec: 07/05/22 11:34 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 Monitor need for therapeutic diet once po intake improves. Lab / Micro Data Result Diagrams: 07/08/22 04:38 07/14/22 05:01 Labs: Laboratory Results - last 24 hr 07/14/22 05:01: Sodium 145, Potassium 4.0, Chloride 115 H, Carbon Dioxide 22.0, Anion Gap 8, BUN 28 H, Creatinine 1.90 H, Estim Creat Clear Calc 18.94, Est GFR (MDRD) Af Amer 33 L, Est GFR (MDRD) Non-Af 28 L, BUN/Creatinine Ratio 14.7, Glucose 82, Calcium 6.8 L 07/14/22 06:18: POC Glucose 85 Micro: Microbiology 07/06/22 18:25 Urine Catheter - Mccormick Urine Culture - Final Yeast, not Joelle albicans 07/03/22 17:00 Urine Catheter - Mccormick Urine Culture - Final Enterococcus faecalis Yeast, not Joelle albicans Escherichia coli Klebsiella oxytoca 07/06/22 19:00 Mucosa - Nasopharyngeal Respiratory Panel (PCR) - Final 07/06/22 18:35 Nasal Secretion SARS-CoV-2 Antigen (Rapid) - Final 07/04/22 06:52 Nasal Secretion SARS-CoV-2 Antigen (Rapid) - Final 07/03/22 10:51 Nasal Secretion SARS-CoV-2 Antigen (Rapid) - Final Physical Exam Narrative General: Alert and oriented x3, no apparent distress Cardiovascular: S1, S2, RRR Respiratory: Lung sounds clear anteriorly and posteriorly. No wheezes, rhonchi or rales noted GI: Abdomen soft, nondistended, positive bowel sounds Extremities: No edema noted bilateral lower legs feet or arms Indwelling Mccormick with clear urine in bag Assessment & Plan Assessment/Plan (1) Acute kidney injury: (2) Chronic kidney disease, stage 3b: (3) Hypertension: (4) Urinary retention: PLAN: Plan Impression/Plan: This is a 71-year-old female with past medical history significant for hypertension, gastric bypass, history of urinary retention/bladder prolapse with history of straight catheterization at home, recent history of left mild to moderate hydronephrosis now with indwelling Mccormick catheter who was transferred to TCU after recent hospitalization in [facility]. Nephrology is following for acute kidney injury. Acute kidney injury on chronic kidney disease stage G3b. The patient has CKD with previous baseline serum creatinine of around 1.7 mg/dL. On admission, 07/01 serum creatinine was 1.67 mg/dL. Serum creatinine peaked at 2.92 mg/dL on July 03. Patient was started on IVF. There was noted improvement in kidney function with SCr improving to 1.91mg/dL on 07/10. IVF were stopped so to see how kidney function is off IVF. SCr 1.85 07/11 and SCr 1.90 today. Likely fluctuations in SCr from hemodynamics but also may be near baseline CKD. Mentation improved and patient does not as lethargic today with adjusting medications, patient is off gabapentin. Again today encouraged patient to increase solute and fluid intake as best as she can. Patient does not need IV fluids at this time. From renal standpoint, patient does not need daily labs Reviewed labs from last hospitalization, on 06/26 serum creatinine 2.7 mg/dL, on 06/30 serum creatinine 1.8 mg/dL (SUSAN possibly from volume depletion and hydronephrosis). Patient has appointment with legal research analyst end of June. There is significant urine protein with urine protein to creatinine ratio of 1.33 g/g (07/04/2022). Acute kidney injury is possibly from volume depletion as patient and both report appetite had been poor; there has been no recent NSAIDs, diuretics, YUNIOR inhibitor or ARB's; the patient also had bp fluctuations which could also have contributed to SUSAN. Renal ultrasound here did not show any hydronephrosis. 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 Bicarbonate is improving, up to 22mmol/L today. No recent diarrhea, possibly metabolic acidosis from SUSAN/CKD. Continue oral sodium bicarbonate as ordered. Hypertension Blood pressures have been acceptable and improved. Patient did have a low blood pressure reading of 98/53 on 07/03/2022 which could have also been contributing to SUSAN. Patient is on metoprolol 25 mg twice daily with holding parameters. Hypokalemia. Potassium level is acceptable currently. She is on potassium chloride at 20 mEq/day. We will continue potassium chloride for now since starting sodium bicarbonate. Disposition: Patient does have outpatient nephrology appointment either in [place] or [place].
[2022-07-14] MEDS: Potassium Chloride Oral Tablet 20 MEQ PO (13:01)
[2022-07-14 14:00] VITALS: BP 137/60; PULSE 74; RESP 16; TEMP 37.2; O2SAT 98
[2022-07-14 17:41] VITALS: BP 137/60; PULSE 74
[2022-07-14] MEDS: clonazePAM 0.5 MG Tablet PO (21:47)
[2022-07-14] MEDS: Mirtazapine 15 MG Tablet 7.5 MG PO (21:48)
[2022-07-14] MEDS: DULoxetine Hcl 60 MG Capsule PO (21:49)
[2022-07-15] MEDS: Loperamide 2 MG Capsule PO (02:34)
[2022-07-15] MEDS: Menthol/Lanolin/Calamine/Znox 113 GM Tube 1 APPLIC TOPICAL ×2 (05:19→17:45)
[2022-07-15] MEDS: Nystatin Powder 15gm Bottle 1 APPLIC TOPICAL ×2 (05:19→17:44)
[2022-07-15 05:21] VITALS: BP 154/64; PULSE 85
[2022-07-15] MEDS: Iron Polysaccharide Complex 150 MG CAPSULE PO (05:21)
[2022-07-15] MEDS: Sodium Bicarbonate 650 MG Tablet 1300 MG PO ×3 (05:21→21:07)
[2022-07-15] MEDS: Pantoprazole Sodium 40 MG Tablet PO ×2 (05:21→17:43)
[2022-07-15] MEDS: Metoprolol Tartrate 25 MG Tablet PO ×2 (05:21→17:44)
[2022-07-15] MEDS: Acetaminophen 500 MG Tablet 1000 MG PO ×3 (05:22→21:07)
[2022-07-15 06:26] LABS: Bedside Glucose 81 mg/dL (74-106)
[2022-07-15 07:22] LABS: Absolute Lymphocyte Count 2.68 X10^3/uL (0.83-4.51); Basophil# 0.07 X10^3/uL; Basophil% 0.9 % (0-1); Eosinophil# 0.56 X10^3/uL; Eosinophils% 7.1 % (0-5); Hematocrit 24.9 % (37-47); Hemoglobin 7.8 g/dL (12.0-15.0); Lymphocyte # 2.68 X10^3/ul (0.83-4.51); Lymphocyte % 34.1 % (19-41); Mean Corp Hgb Conc 31.3 g/dL (32-36); Mean Corpuscular Hgb 29.3 pg (27.0-32.0); Mean Corpuscular Volume 93.6 fL (81-99); Mean Platelet Vol. 10.1 fl (6.2-12.0); Monocyte# 0.48 X10^3/uL; Monocyte% 6.1 % (0-10); NRBC Flagged by Analyzer 0 % (0-5); Neutrophil # 4.03 X10^3/uL (2.7-7.7); Neutrophil % 51.2 % (47-70); Platelet Count 276 K/mm3 (150-450); RBC Distribution Width CV 18.8 % (11.6-14.6); RBC Distribution Width SD 64.9 fl (35.1-43.9); Red Blood Count 2.66 M/mm3 (4.2-5.4); White Blood Count 7.9 K/mm3 (4.4-11.0)
[2022-07-15 07:35] LABS: Anion Gap 5 (5-15); BUN 24 mg/dL (7-18); Calcium,Total 6.9 mg/dL (8.5-10.1); Chloride 114 mmol/L (98-107); Creatinine, Serum 1.84 mg/dL (0.55-1.02); EST Glomerular Filtration Rate 29 mL/min (>60); Est Glom Filt Rate - Afr Amer 35 mL/min (>60); Estimated Creatinine Clearance 19.56 ml/min; Glucose 88 mg/dL (74-106); Potassium 3.9 mmol/L (3.5-5.1); Sodium Level 141 mmol/L (136-145)
[2022-07-15] MEDS: Ascorbic Acid 500 MG Tablet PO (08:04)
[2022-07-15] MEDS: Potassium Chloride Oral Tablet 20 MEQ PO (12:09)
[2022-07-15 13:56] VITALS: BP 132/64; PULSE 76; RESP 18; TEMP 36.8
--- NOTE | 2022-07-15 15:48 | NURSING ---
-Had a melt down around 1400, trying to get out of chair, alarm going off, stating I want to go HOME and will jump out the window if need be, at beside, POURED CONCRETE WALL TECHNICIAN and calmed her down. POURED CONCRETE WALL TECHNICIAN offered to take her for a walk but refused
[2022-07-15 17:44] VITALS: BP 132/64; PULSE 76
[2022-07-15 21:00] VITALS: O2SAT 99
[2022-07-15] MEDS: DULoxetine Hcl 60 MG Capsule PO (21:06)
[2022-07-15] MEDS: Mirtazapine 15 MG Tablet 7.5 MG PO (21:06)
[2022-07-15] MEDS: clonazePAM 0.5 MG Tablet PO (21:59)
[2022-07-16] MEDS: Loperamide 2 MG Capsule PO (02:19)
[2022-07-16] MEDS: Sodium Bicarbonate 650 MG Tablet 1300 MG PO ×3 (05:42→21:14)
[2022-07-16] MEDS: Acetaminophen 500 MG Tablet 1000 MG PO ×3 (05:42→21:14)
[2022-07-16] MEDS: Nystatin Powder 15gm Bottle 1 APPLIC TOPICAL ×2 (05:43→17:39)
[2022-07-16] MEDS: Pantoprazole Sodium 40 MG Tablet PO ×2 (05:43→17:38)
[2022-07-16] MEDS: Iron Polysaccharide Complex 150 MG CAPSULE PO (05:43)
[2022-07-16 05:44] VITALS: BP 132/55; PULSE 78
[2022-07-16] MEDS: Metoprolol Tartrate 25 MG Tablet PO ×2 (05:44→17:38)
[2022-07-16] MEDS: Menthol/Lanolin/Calamine/Znox 113 GM Tube 1 APPLIC TOPICAL ×2 (05:45→17:40)
[2022-07-16 06:03] LABS: Absolute Lymphocyte Count 2.54 X10^3/uL (0.83-4.51); Absolute Neutrophil Count 4.3 X10^3/uL (2.0-7.7); Basophil# 0.04 X10^3/uL; Basophil% 0.5 % (0-1); Eosinophil# 0.53 X10^3/uL; Eosinophils% 6.7 % (0-5); Hematocrit 23.5 % (37-47); Hemoglobin 7.3 g/dL (12.0-15.0); Lymphocyte # 2.54 X10^3/ul (0.83-4.51); Lymphocyte % 32.1 % (19-41); Mean Corp Hgb Conc 31.1 g/dL (32-36); Mean Corpuscular Hgb 29.4 pg (27.0-32.0); Mean Corpuscular Volume 94.8 fL (81-99); Mean Platelet Vol. 10.3 fl (6.2-12.0); Monocyte# 0.52 X10^3/uL; Monocyte% 6.6 % (0-10); NRBC Flagged by Analyzer 0 % (0-5); Neutrophil # 4.26 X10^3/uL (2.7-7.7); Neutrophil % 53.7 % (47-70); POSITIVE MORPHOLOGY YES; Platelet Count 212 K/mm3 (150-450); RBC Distribution Width CV 18.8 % (11.6-14.6); RBC Distribution Width SD 65.9 fl (35.1-43.9); Red Blood Count 2.48 M/mm3 (4.2-5.4); White Blood Count 7.9 K/mm3 (4.4-11.0)
[2022-07-16 06:14] LABS: Differential Indicated SCAN CRITERIA MET
[2022-07-16 06:36] LABS: Bedside Glucose 79 mg/dL (74-106)
[2022-07-16 06:53] LABS: Differential Comment SCANNED
[2022-07-16] MEDS: Ascorbic Acid 500 MG Tablet PO (08:52)
[2022-07-16 10:00] VITALS: PULSE 72; RESP 16; O2SAT 94
[2022-07-16] MEDS: Potassium Chloride Oral Tablet 20 MEQ PO (12:16)
[2022-07-16 13:30] VITALS: BP 125/52; PULSE 76; RESP 16; TEMP 36.7; O2SAT 96
[2022-07-16] MEDS: traMADol 50 MG Tablet PO ×2 (13:39→21:12)
[2022-07-16 17:38] VITALS: PULSE 88
[2022-07-16] MEDS: clonazePAM 0.5 MG Tablet PO (21:11)
[2022-07-16] MEDS: DULoxetine Hcl 60 MG Capsule PO (21:13)
[2022-07-16] MEDS: Mirtazapine 15 MG Tablet 7.5 MG PO (21:13)
[2022-07-17] MEDS: Nystatin Powder 15gm Bottle 1 APPLIC TOPICAL ×2 (05:32→17:59)
[2022-07-17] MEDS: Menthol/Lanolin/Calamine/Znox 113 GM Tube 1 APPLIC TOPICAL ×2 (05:32→17:59)
[2022-07-17 05:34] VITALS: BP 135/63; PULSE 81
[2022-07-17] MEDS: Acetaminophen 500 MG Tablet 1000 MG PO ×3 (05:34→21:15)
[2022-07-17] MEDS: Iron Polysaccharide Complex 150 MG CAPSULE PO (05:34)
[2022-07-17] MEDS: Metoprolol Tartrate 25 MG Tablet PO ×2 (05:34→17:58)
[2022-07-17] MEDS: Sodium Bicarbonate 650 MG Tablet 1300 MG PO ×3 (05:34→21:14)
[2022-07-17] MEDS: Pantoprazole Sodium 40 MG Tablet PO ×2 (05:36→17:58)
[2022-07-17 06:31] LABS: Bedside Glucose 80 mg/dL (74-106)
[2022-07-17] MEDS: Ascorbic Acid 500 MG Tablet PO (08:29)
[2022-07-17] MEDS: Potassium Chloride Oral Tablet 20 MEQ PO (12:19)
[2022-07-17 14:00] VITALS: BP 118/59; PULSE 75; RESP 16; TEMP 36.1; O2SAT 97
--- NOTE | 2022-07-17 14:28 | CASEMGMT ---
Addendum entered by Tootie Kumar 07/20/22 13:12: Fred Myles [facility] can accept and will contact for SOC. Addendum entered by Tootie Kumar 07/20/22 11:19: SW continues to place more referrals for [facility] services. Addendum entered by Tootie Kumar 07/19/22 16:40: [facility] and they are unable to accept d/t not having OT/ST. SW spoke with pt and and provided printed list of skilled C agencies with quality and resource data via [employer]. has no other preference and agreeable to several referrals to agencies close to pt's area. SW sent referral to multiple referrals via [employer]. Will continue to follow. Original Note: Social Work [employer] issued LCD 07/19, DC 07/20. SW spoke with pt and . Both are agreeable to DC. Therapy agrees as pt has made significant progress and returned to baseline. Confirmed pt's wish to return to [facility] for PT/OT/ST/SN. Referral made via [employer]. No DME needs. can transport. Plan: DC home with 07/20, [facility] PT/OT/ST/SN PHILL TorresW
--- NOTE | 2022-07-17 16:09 | NURSING ---
Patient and updated that staff member tested positive for covid.
[2022-07-17 17:58] VITALS: BP 144/51; PULSE 81
--- NOTE | 2022-07-17 18:44 | PCM.DC.SUM ---
Providers Date of Admission: 06/30/22 Primary Care Physician: Dr. Jessi Mendez, DO Consultations 07/03/22 19:08 Consult: Nephrology Routine Consulting Provider: Malia Elizondo Reason for Consult: Acute on chronic kidney failure EMERGENT Consult: No MD Notified: Yes Date Notified: 07/03/22 Time Notified: 19:08 Method of Notification: Answering Service Reason For Visit: CKF HTN Diagnosis Discharge Diagnosis (1) Acute kidney injury: Status: Acute Code(s): N17.9 - Acute kidney failure, unspecified (2) Chronic kidney disease, stage 3b: Status: Acute Code(s): N18.32 - Chronic kidney disease, stage 3b (3) Hypertension: Status: Chronic Code(s): I10 - Essential (primary) hypertension (4) Urinary retention: Status: Acute Code(s): R33.9 - Retention of urine, unspecified Plan 71 year old female with below past medical history hospitalized for weakness secondary to urinary tract infection, complicated by acute kidney injury, obstructive uropathy, hyponatremia, hypomagnesemia, admitted to TCU with debility, here for rehabilitation, strengthening, prior to discharge home with . Debility - PT/OT. Cognition - ST. Pain - Tylenol 1000mg tid, Tramadol 50mg bid prn pain (4-5), Oxycontin CR 15mg bid. Bowel - colace 100mg bid prn, Loperamide 2mg q6h prn. Adult immunization - Administer pneumonia vaccine, covid19 vaccine, flu vaccine as appropriate. DVT prophylaxis - Hold, monitor. Osteoporosis - Alendronate 70mg qweek. Anxiety - Clonazepam 0.5mg bid, stable chronic half-way use, GDR not recommended. Depression - Duloxetine 60mg qhs, stable chronic half-way use, GDR not recommended. Neuropathic pain - Gabapentin 300mg tid. Nutrition - Glucerna Shake 120ml tidcm. Hypertension - Metoprolol 25mg bid. Nausea - Zofran ODT 4mg q4h prn. GERD - Pantoprazole 40mg bid. Hypokalemia - KCL ER 20meq daily. Medications at Discharge Home Medications alendronate 70 mg tablet (Fosamax) 70 mg PO QWEEK Supplement 06/30/22 cholecalciferol (vitamin D3) 125 mcg (5,000 unit) tablet 125 mcg PO DAILY Supplement 06/30/22 duloxetine 60 mg capsule,delayed release (Cymbalta) 60 mg PO QHS Depression 06/30/22 magnesium oxide 400 mg (241.3 mg magnesium) tablet 400 mg PO DAILY Supplement 06/30/22 potassium chloride 20 mEq tablet,extended release 20 meq PO DAILY Supplement 06/30/22 acetaminophen 500 mg tablet 1,000 mg PO TID #0 tabs 07/17/22 ascorbic acid (vitamin C) 500 mg tablet 500 mg PO BREAKFAST 30 days #30 tabs 07/17/22 clonazepam 0.5 mg tablet 0.5 mg PO QHS #0 tabs 07/17/22 metoprolol tartrate 25 mg tablet 25 mg PO BID 30 days #60 tabs 07/17/22 mirtazapine 15 mg tablet 7.5 mg PO QHS 30 days #15 tabs 07/17/22 pantoprazole 40 mg tablet,delayed release 40 mg PO BID 30 days #60 tabs 07/17/22 polysaccharide iron complex 150 mg iron capsule (Ferrex) 150 mg PO DAILY 30 days #30 caps 07/17/22 sodium bicarbonate 650 mg tablet 1,300 mg PO TID 30 days #180 tabs 07/17/22 tramadol 50 mg tablet 50 mg PO BID PRN PRN Pain Score 4-10 7 days #14 tabs 07/17/22 Hospital Course Operations None Procedures None Summary of Care Provided Minutes Spent on Discharge: 35 Hospital Course: 71 year old female with below past medical history hospitalized for weakness secondary to urinary tract infection, complicated by acute kidney injury, obstructive uropathy, hyponatremia, hypomagnesemia, admitted to TCU with debility, here for rehabilitation, strengthening, prior to discharge home with . On TCU, resident had encephalopathy secondary to acute kidney injury from dehydration, lack of oral intake. She improved with IV hydration, Nephrology was consulted. Her sedating medication doses were decreased, along with controlled substances. If possible, consider continuing sedating/narcotic medications at lower doses, or tapering off. 07/16/2022 Hemoglobin 7.3, Stool guaiac negative. 07/18/2022 Resident transfused 2 units PRBC, consider further anemia workup as outpatient. Resident has chronic indwelling parsons catheter, she did not tolerate removal. Continue follow up with urology as outpatient. Discharge home with 07/20/2022, [facility] Care PT/OT/ST/SN. Physical Exam Const alert General Appearance: cooperative HEENT normocephalic Eyes PERRL and EOMs intact bilaterally Neck supple, no JVD and no carotid bruits Resp normal respiratory effort, normal air movement and clear to auscultation bilaterally Cardio regular rate and regular rhythm GI normal to inspection, nondistended, normoactive bowel sounds, non-tender and non-distended Bladder / Kidney Exam: catheter in place urethral Extremity normal capillary refill General Extremity: Negative for edema Skin no rashes or lesions noted General Skin Exam: no breakdown Psych affect normal Appearance: appropriate Medical Records Data Medical Nutrition Assessment Dietitian: Malnutrition Criteria Met Start: 07/05/22 11:34 Freq: Status: Active Protocol: Document 07/05/22 11:34 JENNIFER (Rec: 07/05/22 11:34 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 Monitor need for therapeutic diet once po intake improves. Weight / BMI Weight Weight: 74.956 kg Body Mass Index (BMI) 32.3 ABG / Lab / Microbiology Data Result Diagrams: 07/16/22 05:20 07/15/22 07:03 Laboratory: Laboratory Results - last 24 hr 07/17/22 06:07: POC Glucose 80 Microbiology: Microbiology 07/17/22 03:27 Stool Stool Occult Blood (NIDA) - Final 07/06/22 18:25 Urine Catheter - Parsons Urine Culture - Final Yeast, not Joelle albicans 07/03/22 17:00 Urine Catheter - Parsons Urine Culture - Final Enterococcus faecalis Yeast, not Joelle albicans Escherichia coli Klebsiella oxytoca 07/06/22 19:00 Mucosa - Nasopharyngeal Respiratory Panel (PCR) - Final 07/06/22 18:35 Nasal Secretion SARS-CoV-2 Antigen (Rapid) - Final 07/04/22 06:52 Nasal Secretion SARS-CoV-2 Antigen (Rapid) - Final 07/03/22 10:51 Nasal Secretion SARS-CoV-2 Antigen (Rapid) - Final D/C Instructions Discharge Diet: No restrictions Discharge Activity: Return to Normal Activity, May Shower and Use Walker Weight Bearing Status: Weight bearing as tolerated Call your doctor if you observe: Fever of 101 or Higher, Inability to urinate, Inability to have a bowel movement, Shortness of breath, Dizziness, Fainting spells, Swelling in the ankles, Chest pain and Uncontrolled pain Additional Instructions: Discharge home with 07/20/2022, [facility] Care PT/OT/ST/SN. Meaningful Use Info Meaningful Use Diagnoses (Choose all that apply): None applicable Discharge Plan Admission Admit Date/Time: 06/30/22 16:20 Primary Reason for Your Visit: Debility. Attending Provider: Timothy Mccoy Chi Primary Care Provider: Jessi Mendez Consulting Providers: Malia Elizondo Instructions Additional Instructions / Restrictions: Discharge home with 07/20/2022, [facility] Care PT/OT/ST/SN. Discharge Orders/Prescriptions Prescriptions: New acetaminophen 500 mg Tablet 1,000 mg PO TID Qty: 0 0RF tramadol 50 mg Tablet 50 mg PO BID PRN PRN (Reason: Pain Score 4-10) 7 Days Qty: 14 0RF ascorbic acid (vitamin C) 500 mg Tablet 500 mg PO BREAKFAST 30 Days Qty: 30 0RF pantoprazole 40 mg Tablet,Delayed Release (Dr/Ec) 40 mg PO BID 30 Days Qty: 60 0RF metoprolol tartrate 25 mg Tablet 25 mg PO BID 30 Days Qty: 60 0RF polysaccharide iron complex [Ferrex 150] 150 mg iron Capsule 150 mg PO DAILY 30 Days Qty: 30 0RF clonazepam 0.5 mg Tablet 0.5 mg PO QHS Qty: 0 0RF sodium bicarbonate 650 mg Tablet 1,300 mg PO TID 30 Days Qty: 180 0RF mirtazapine 15 mg Tablet 7.5 mg PO QHS 30 Days Qty: 15 0RF Continued magnesium oxide 400 mg (241.3 mg magnesium) Tablet 400 mg PO DAILY duloxetine [Cymbalta] 60 mg Capsule,Delayed Release(Dr/Ec) 60 mg PO QHS cholecalciferol (vitamin D3) 125 mcg (5,000 unit) Tablet 125 mcg PO DAILY potassium chloride 20 mEq Tablet Extended Release 20 meq PO DAILY Discontinued clonazepam 0.5 mg Tablet 0.5 mg PO BID loperamide [Imodium A-D] 2 mg Tablet 2 mg PO Q6H PRN (Reason: Diarrhea) omeprazole 40 mg Capsule,Delayed Release(Dr/Ec) 40 mg PO BID tramadol 50 mg Tablet 50 mg PO BID PRN (Reason: Pain) acetaminophen [Tylenol Arthritis Pain] 650 mg Tablet Extended Release 650 mg PO TID oxycodone 15 mg Tablet 15 mg PO BID PRN (Reason: Pain) ondansetron HCl [Zofran] 4 mg/5 mL Solution 4 mg PO Q4H PRN PRN (Reason: Nausea) docusate sodium 100 mg Capsule 100 mg PO BID PRN (Reason: Constipation) gabapentin 300 mg Capsule 300 mg PO TID metoprolol tartrate 25 mg Tablet 25 mg PO BID No Action alendronate [Fosamax] 70 mg Tablet 70 mg PO QWEEK Referrals / Follow Up: Jessi Mendez DO [Primary Care Provider] - 07/25/22 11:00 am Disposition Disposition (needs filled in before D/C Order can be placed): Home Health Service
[2022-07-17] MEDS: clonazePAM 0.5 MG Tablet PO (21:14)
[2022-07-17] MEDS: Mirtazapine 15 MG Tablet 7.5 MG PO (21:15)
[2022-07-17] MEDS: DULoxetine Hcl 60 MG Capsule PO (21:15)
[2022-07-17 21:21] VITALS: O2SAT 95
[2022-07-18] MEDS: Acetaminophen 500 MG Tablet 1000 MG PO ×3 (04:57→21:19)
[2022-07-18] MEDS: Sodium Bicarbonate 650 MG Tablet 1300 MG PO ×2 (04:57→13:59)
[2022-07-18 04:58] VITALS: BP 141/67; PULSE 70
[2022-07-18] MEDS: Iron Polysaccharide Complex 150 MG CAPSULE PO (04:58)
[2022-07-18] MEDS: Alendronate Sodium 70 MG Tablet PO (04:58)
[2022-07-18] MEDS: Metoprolol Tartrate 25 MG Tablet PO ×2 (04:58→17:36)
[2022-07-18] MEDS: Pantoprazole Sodium 40 MG Tablet PO ×2 (04:58→17:35)
[2022-07-18] MEDS: Menthol/Lanolin/Calamine/Znox 113 GM Tube 1 APPLIC TOPICAL ×2 (05:05→17:39)
[2022-07-18] MEDS: Nystatin Powder 15gm Bottle 1 APPLIC TOPICAL ×2 (05:06→17:38)
[2022-07-18 06:36] LABS: Bedside Glucose 74 mg/dL (74-106)
[2022-07-18 06:57] LABS: Anion Gap 7 (5-15); BUN 22 mg/dL (7-18); BUN/Creat Ratio 13.5 RATIO (10-20); Calcium,Total 5.6 mg/dL (8.5-10.1); Chloride 108 mmol/L (98-107); Creatinine, Serum 1.63 mg/dL (0.55-1.02); EST Glomerular Filtration Rate 33 mL/min (>60); Est Glom Filt Rate - Afr Amer 40 mL/min (>60); Estimated Creatinine Clearance 22.08 ml/min; Glucose 86 mg/dL (74-106); Potassium 3.8 mmol/L (3.5-5.1); Sodium Level 140 mmol/L (136-145)
[2022-07-18] MEDS: Ascorbic Acid 500 MG Tablet PO (08:03)
[2022-07-18 10:00] VITALS: PULSE 81; RESP 18; O2SAT 96
--- NOTE | 2022-07-18 10:33 | NURSING ---
Pt left floor at 9am to receive transfusion.
[2022-07-18] MEDS: Calcium Carbonate 500 MG Tablet 1000 MG PO ×3 (13:43→17:34)
[2022-07-18] MEDS: Potassium Chloride Oral Tablet 20 MEQ PO (13:44)
[2022-07-18] MEDS: Ondansetron ODT 4 MG Tablet PO (13:51)
[2022-07-18 14:00] VITALS: BP 109/49; PULSE 73; RESP 18; TEMP 36.9; O2SAT 96
--- NOTE | 2022-07-18 14:08 | NURSING ---
PT RETURNED TO FLOOR AT 1315.
--- NOTE | 2022-07-18 15:06 | PCM.PN.REN ---
Subjective Subjective Following for SUSAN on CKD Resting in bed, denies any complaints. Reports has good appetite with no N/V/D. Objective Data Objective Data Vital Signs: Vital Signs Temp Pulse Resp BP Pulse Ox O2 Del Method 98.5 F 73 18 109/49 L 96 Room Air 07/18/22 14:00 07/18/22 14:00 07/18/22 14:00 07/18/22 14:00 07/18/22 14:00 07/18/22 14:00 Oxygen Delivery Method Room Air Weight: 74.956 kg Body Mass Index (BMI) 32.3 Intake & Output: Intake and Output for Last 24 Hours 07/16/22 07/17/22 07/18/22 23:59 23:59 23:59 Intake Total 820 / 820 480 / 480 120 / 120 Output Total 1050 / 1050 1750 / 1750 1650 / 1650 Balance -230 / -230 -1270 / -1270 -1530 / -1530 Medical Nutrition Assessment Dietitian: Malnutrition Criteria Met Start: 07/05/22 11:34 Freq: Status: Active Protocol: Document 07/05/22 11:34 SLA (Rec: 07/05/22 11:34 SLA [id number]) Nutrition Malnutrition Evidence of Malnutrition Exists Yes Malnutrition (severe): Chronic Evidenced By Suboptimal Energy Intake ( Severe),Weight Loss (Severe) Clinical Problem Chronic Disease or Condition Related Malnutrition Etiology related to inadequate energy intake Signs/Symptoms as evidenced by 25.7% unintended wt loss and po intake meeting <50% 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 Monitor need for therapeutic diet once po intake improves. Lab / Micro Data Result Diagrams: 07/16/22 05:20 07/18/22 05:11 Labs: Laboratory Results - last 24 hr 07/16/22 14:00: Blood Type Cancelled, Antibody Screen Cancelled, Crossmatch See Detail 07/18/22 05:11: Sodium 140, Potassium 3.8, Chloride 108 H, Carbon Dioxide 25.0, Anion Gap 7, BUN 22 H, Creatinine 1.63 H, Estim Creat Clear Calc 22.08, Est GFR (MDRD) Af Amer 40 L, Est GFR (MDRD) Non-Af 33 L, BUN/Creatinine Ratio 13.5, Glucose 86, Calcium 5.6 L* 07/18/22 06:14: POC Glucose 74 Micro: Microbiology 07/18/22 05:03 Nasal Secretion SARS-CoV-2 Antigen (Rapid) - Final 07/17/22 03:27 Stool Stool Occult Blood (NIDA) - Final 07/06/22 18:25 Urine Catheter - Parsons Urine Culture - Final Yeast, not Joelle albicans 07/03/22 17:00 Urine Catheter - Parsons Urine Culture - Final Enterococcus faecalis Yeast, not Joelle albicans Escherichia coli Klebsiella oxytoca 07/06/22 19:00 Mucosa - Nasopharyngeal Respiratory Panel (PCR) - Final 07/06/22 18:35 Nasal Secretion SARS-CoV-2 Antigen (Rapid) - Final 07/04/22 06:52 Nasal Secretion SARS-CoV-2 Antigen (Rapid) - Final 07/03/22 10:51 Nasal Secretion SARS-CoV-2 Antigen (Rapid) - Final Physical Exam Narrative General: Alert and oriented x3, no apparent distress Cardiovascular: S1, S2, RRR Respiratory: Lung sounds clear anteriorly and posteriorly. No wheezes, rhonchi or rales noted GI: Abdomen soft, nondistended, positive bowel sounds Extremities: No edema noted bilateral lower legs feet or arms Indwelling Parsons with clear urine in bag Assessment & Plan Assessment/Plan (1) Acute kidney injury: (2) Chronic kidney disease, stage 3b: (3) Hypertension: (4) Urinary retention: PLAN: Plan Impression/Plan: This is a 71-year-old female with past medical history significant for hypertension, gastric bypass, history of urinary retention/bladder prolapse with history of straight catheterization at home, recent history of left mild to moderate hydronephrosis now with indwelling Parsons catheter who was transferred to TCU after recent hospitalization in [facility]. Nephrology is following for acute kidney injury. Acute kidney injury on chronic kidney disease stage G3b. The patient has CKD with previous baseline serum creatinine of around 1.7 mg/dL. On admission, 07/01 serum creatinine was 1.67 mg/dL. Serum creatinine peaked at 2.92 mg/dL on July 03. Patient was started on IVF. There was noted improvement in kidney function with SCr improving to 1.91mg/dL on 07/10. IVF were stopped so to see how kidney function is off IVF. SCr 1.85 07/11 -->SCr 1.90 (07/14)--> SCr 1.63mg/dL today. Likely fluctuations in SCr from hemodynamics but also may be near baseline CKD. Mentation improved and patient not as lethargic after adjusting medications, patient is off gabapentin. Again today encouraged patient to increase solute and fluid intake as best as she can. Patient does not need IV fluids at this time. From renal standpoint, patient does not need daily labs Reviewed labs from last hospitalization, on 06/26 serum creatinine 2.7 mg/dL, on 06/30 serum creatinine 1.8 mg/dL (SUSAN possibly from volume depletion and hydronephrosis). Patient has appointment with choker hooker end of June. There is significant urine protein with urine protein to creatinine ratio of 1.33 g/g (07/04/2022). Acute kidney injury is possibly from volume depletion as patient and both report appetite had been poor; there has been no recent NSAIDs, diuretics, YUNIOR inhibitor or ARB's; the patient also had bp fluctuations which could also have contributed to SUSAN. Renal ultrasound here did not show any hydronephrosis. 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 Bicarbonate is improving, up to 25mmol/L today. No recent diarrhea, possibly metabolic acidosis from SUSAN/CKD. She is on oral sodium bicarb 1300mg bid, will decrease dose Hypertension Blood pressures have been acceptable and improved. Patient did have a low blood pressure reading of 98/53 on 07/03/2022 which could have also been contributing to SUSAN. Patient is on metoprolol 25 mg twice daily with holding parameters. Hypokalemia. Potassium level is acceptable currently. She is on potassium chloride at 20 mEq/day. We will continue potassium chloride for now since starting sodium bicarbonate. Disposition: Patient does have outpatient nephrology appointment in [place]. She is to be discharged to home possibly 07/20. Patient will need urology/or SUBSTATION SUPERINTENDENT follow up as she has history of urinary retention and had been doing straight catheterizations at home but developed hydronephrosis and now has parsons.
[2022-07-18 17:36] VITALS: BP 147/63; PULSE 77
[2022-07-18] MEDS: traMADol 50 MG Tablet PO (17:44)
[2022-07-18 17:47] VITALS: BP 147/63; PULSE 77
[2022-07-18] MEDS: clonazePAM 0.5 MG Tablet PO (21:17)
[2022-07-18] MEDS: DULoxetine Hcl 60 MG Capsule PO (21:18)
[2022-07-18] MEDS: Sodium Bicarbonate 650 MG Tablet PO (21:18)
[2022-07-18] MEDS: Mirtazapine 15 MG Tablet 7.5 MG PO (21:19)
[2022-07-19 05:17] VITALS: BP 127/53; PULSE 70
[2022-07-19] MEDS: Iron Polysaccharide Complex 150 MG CAPSULE PO (05:17)
[2022-07-19] MEDS: Acetaminophen 500 MG Tablet 1000 MG PO ×3 (05:17→21:20)
[2022-07-19] MEDS: Sodium Bicarbonate 650 MG Tablet PO (05:17)
[2022-07-19] MEDS: Metoprolol Tartrate 25 MG Tablet PO ×2 (05:17→17:30)
[2022-07-19] MEDS: Pantoprazole Sodium 40 MG Tablet PO ×2 (05:17→17:31)
[2022-07-19] MEDS: Menthol/Lanolin/Calamine/Znox 113 GM Tube 1 APPLIC TOPICAL ×2 (05:20→17:29)
[2022-07-19] MEDS: Nystatin Powder 15gm Bottle 1 APPLIC TOPICAL ×2 (05:20→17:30)
[2022-07-19 05:49] LABS: Hemoglobin 9.7 g/dL (12.0-15.0)
[2022-07-19 06:31] LABS: Bedside Glucose 85 mg/dL (74-106)
[2022-07-19 06:42] LABS: Anion Gap 8 (5-15); BUN 19 mg/dL (7-18); BUN/Creat Ratio 11.9 RATIO (10-20); Calcium,Total 5.2 mg/dL (8.5-10.1); Chloride 107 mmol/L (98-107); EST Glomerular Filtration Rate 34 mL/min (>60); Est Glom Filt Rate - Afr Amer 41 mL/min (>60); Estimated Creatinine Clearance 22.49 ml/min; Glucose 81 mg/dL (74-106); Potassium 3.6 mmol/L (3.5-5.1); Sodium Level 141 mmol/L (136-145)
--- NOTE | 2022-07-19 07:58 | NURSING ---
Addendum entered by Omar Saunders 07/19/22 15:47: Dr. Mccoy ordered IV piggyback 1gm Calcium gluconate this AM and BMP in the afternoon. Medication infused by RN, no adverse reactions to infusion noted. Calcium level rechecked at 5.5, Dr. Mccoy notified and new orders received of IV piggyback 2gm Calcium gluconate and BMP at 1700, order read back and confirmed. RN notified of new orders, infusion started by RN. Original Note: Lab called regarding a critical calcium level. Dr. Mccoy made aware. No new orders at this time.
[2022-07-19] MEDS: Calcium Carbonate 500 MG Tablet 1000 MG PO ×3 (08:24→17:28)
[2022-07-19] MEDS: Ascorbic Acid 500 MG Tablet PO (08:24)
[2022-07-19 09:00] VITALS: BMI 29.2
[2022-07-19] MEDS: 0.9% Saline Lock 10 ML Syringe IV ×5 (09:22→17:25)
--- NOTE | 2022-07-19 09:31 | NURSING ---
[facility] PER DR. GAYLE TO CANCEL OXY PRESCRIPTION. PHARMACY STATED THEY DID NOT HAVE ANY OXY PRESCRIPTIONS BUT HAD HER OTHERS. STATED TO PHARMACY IF ONE DOES SHOW UP TO CANCEL IT DUE TO THE DR DOES NOT WANT PT TO HAVE IT. PHARMACY STATED THEY WOULD. CALLED PT AND UP DATED HIM ON PT LABS AND PT GETTING IV CALCIUM DUE TO CALCIUM BEING TO LOW. ALSO STATED TO THAT DID NOT WANT PT GOING HOME ON OXY AND TO NOT [employer]ENT EDITOR ANY PRESCRIPTIONS FOR THAT AND IF PT NEEDS ORDER FOR OXY TO SEE HER PAIN DR. PT UNDER STOOD. RN AWARE.
[2022-07-19] MEDS: Potassium Chloride Oral Tablet 20 MEQ PO (11:44)
[2022-07-19 13:43] VITALS: BP 136/68; PULSE 75; RESP 19; TEMP 36.8; O2SAT 96
[2022-07-19 13:48] LABS: Anion Gap 6 (5-15); BUN 18 mg/dL (7-18); BUN/Creat Ratio 10.3 RATIO (10-20); Calcium,Total 5.5 mg/dL (8.5-10.1); Chloride 107 mmol/L (98-107); Creatinine, Serum 1.75 mg/dL (0.55-1.02); EST Glomerular Filtration Rate 30 mL/min (>60); Est Glom Filt Rate - Afr Amer 37 mL/min (>60); Estimated Creatinine Clearance 20.57 ml/min; Glucose 105 mg/dL (74-106); Potassium 3.9 mmol/L (3.5-5.1); Sodium Level 140 mmol/L (136-145)
--- NOTE | 2022-07-19 14:58 | CASEMGMT ---
Social Work BIMS (04/06) and PHQ-9 () completed for MDS assessment. SW explored positive responses. Pt continued to report reason is for admission dx and decline in medical condition. SW explained both PHQ-9's have had high scores. Inquired about counseling at home. pt denied. Inquired about medication adjustment. Pt noted she is on an antidepressant already but is open to an adjustment/addition. SW to speak with Dr. Mccoy. Tootie Kumar, [employer]
[2022-07-19 17:30] VITALS: BP 136/68; PULSE 75
[2022-07-19 18:17] LABS: Anion Gap 8 (5-15); BUN 18 mg/dL (7-18); Calcium,Total 6.3 mg/dL (8.5-10.1); Chloride 106 mmol/L (98-107); EST Glomerular Filtration Rate 29 mL/min (>60); Est Glom Filt Rate - Afr Amer 35 mL/min (>60); Estimated Creatinine Clearance 19.99 ml/min; Glucose 121 mg/dL (74-106); Sodium Level 141 mmol/L (136-145)
--- NOTE | 2022-07-19 20:52 | NURSING ---
telephone order received form Dr. Mccoy to add magnesium, albumin, ionized calcium, and phosphorus to AM blood draw 07/20/22
[2022-07-19] MEDS: Mirtazapine 15 MG Tablet 7.5 MG PO (21:21)
[2022-07-19] MEDS: clonazePAM 0.5 MG Tablet PO (21:21)
[2022-07-19] MEDS: DULoxetine Hcl 60 MG Capsule PO (21:21)
[2022-07-19] MEDS: Ergocalciferol 1.25 MG (50, 000 UNIT) Capsule PO (21:24)
--- NOTE | 2022-07-19 21:59 | NURSING ---
Parsons changed at this time as pt is leaving tomorrow and will have parsons in place at home. 18 FR with 10cc balloon. Pt tolerated well.
[2022-07-19 22:15] VITALS: O2SAT 94
[2022-07-20 05:03] VITALS: BP 132/59; PULSE 69; RESP 17
[2022-07-20] MEDS: Menthol/Lanolin/Calamine/Znox 113 GM Tube 1 APPLIC TOPICAL (05:04)
[2022-07-20] MEDS: Nystatin Powder 15gm Bottle 1 APPLIC TOPICAL (05:04)
[2022-07-20 05:05] VITALS: PULSE 69
[2022-07-20] MEDS: Acetaminophen 500 MG Tablet 1000 MG PO ×2 (05:05→14:01)
[2022-07-20] MEDS: Iron Polysaccharide Complex 150 MG CAPSULE PO (05:05)
[2022-07-20] MEDS: Pantoprazole Sodium 40 MG Tablet PO (05:05)
[2022-07-20] MEDS: Metoprolol Tartrate 25 MG Tablet PO (05:05)
[2022-07-20 06:26] LABS: Bedside Glucose 89 mg/dL (74-106)
[2022-07-20 06:33] LABS: PTHIN 54.4 pg/mL (18.4-80.1)
[2022-07-20 06:35] LABS: Albumin, Serum 2.3 g/dL (3.2-5.0)
[2022-07-20 06:41] LABS: Phosphorus 4.9 mg/dL (2.5-4.9)
[2022-07-20 06:46] LABS: BUN 15 mg/dL (7-18); Creatinine, Serum 1.61 mg/dL (0.55-1.02); Estimated Creatinine Clearance 22.35 ml/min; Glucose 78 mg/dL (74-106)
[2022-07-20 06:47] LABS: Anion Gap 9 (5-15); BUN/Creat Ratio 9.3 RATIO (10-20); Calcium,Total 6.2 mg/dL (8.5-10.1); Chloride 106 mmol/L (98-107); EST Glomerular Filtration Rate 33 mL/min (>60); Est Glom Filt Rate - Afr Amer 40 mL/min (>60); Magnesium 0.6 mg/dL (1.6-2.6); Potassium 3.7 mmol/L (3.5-5.1); Sodium Level 143 mmol/L (136-145)
--- NOTE | 2022-07-20 06:59 | NURSING ---
Critical lab called, calcium 6.2, magnesium 0.6, Dr. Mccoy contacted via telephone. New order received for Magnesium 2gm IV x1, start Magnesium 128mg BID oral, orders repeated back to Dr. Mccoy.
[2022-07-20 07:58] LABS: Vitamin D,25 Hydroxy 52.8 ng/mL
[2022-07-20] MEDS: Ascorbic Acid 500 MG Tablet PO (08:29)
[2022-07-20] MEDS: Calcium Carbonate 500 MG Tablet 1000 MG PO ×2 (08:29→11:14)
[2022-07-20] MEDS: Magnesium Chloride 64 MG Delay Rel.Tablet 128 MG PO (08:59)
[2022-07-20 09:13] VITALS: PULSE 83; RESP 18; O2SAT 94
[2022-07-20] MEDS: Magnesium Sulfate 2 GM IV IV (10:50)
[2022-07-20] MEDS: Potassium Chloride Oral Tablet 20 MEQ PO (11:14)
[2022-07-20] MEDS: 0.9% Saline Lock 10 ML Syringe IV (13:08)
[2022-07-20 13:22] VITALS: BP 139/75; PULSE 75; RESP 18; TEMP 36.1; O2SAT 96
[2022-07-20 13:55] LABS: Magnesium 1.9 mg/dL (1.6-2.6)
== END 2022-07-20 14:35 | disposition home health service (06) | DRG 690 ==
PROVIDERS: Internal Medicine Nephrology; Nurse Practitioner Adult Health; Admitting Provider Family Medicine Geriatric Medicine; PCP Student in an Organized Health Care Education/Training Program; Visit Provider Family Medicine Geriatric Medicine
DX: N39.0 Urinary tract infection, site not specified (principal); E87.1 Hypo-osmolality and hyponatremia; N17.9 Acute kidney failure, unspecified; E11.22 Type 2 diabetes mellitus with diabetic chronic kidney disease; E11.40 Type 2 diabetes mellitus with diabetic neuropathy, unspecified; N18.32 Chronic kidney disease, stage 3b; E83.42 Hypomagnesemia; M79.7 Fibromyalgia; I12.9 Hypertensive chronic kidney disease with stage 1 through stage 4 chronic kidney disease, or unspecified chronic kidney disease; G47.33 Obstructive sleep apnea (adult) (pediatric); F41.9 Anxiety disorder, unspecified; K21.9 Gastro-esophageal reflux disease without esophagitis; E87.6 Hypokalemia; N32.89 Other specified disorders of bladder; Z87.891 Personal history of nicotine dependence; Z79.83 Long term (current) use of bisphosphonates; Z79.899 Other long term (current) drug therapy; F32.A Depression, unspecified; Z98.84 Bariatric surgery status; R33.9 Retention of urine, unspecified; G89.4 Chronic pain syndrome; Z23 Encounter for immunization
CPT/HCPCS: 0124A; 36415; 71046; 76770; 80048; 81001; 82040; 82274; 82306; 82330; 82570; 82962; 83735; 83970; 84100; 84156; 84300; 85014; 85018; 85025; 86850; 86900; 86901; 86920; 86922; 87077; 87086; 87088; 87186; 87426; 87633; 87811; 91312; 92507; 92523; 93005; 97110; 97116; 97129; 97130; 97162; 97165; 97530; 97535; 97802; J7030; J7050; A4216; J0610

== ENCOUNTER → 2022-07-06 | Outpatient (CLI) | payer MEDICARE, SELFPAY ==
--- NOTE | 2022-07-06 09:42 | MRI_ITS ---
HISTORY: ALTERED MENTAL STATUS X 1 MONTH. TECHNIQUE: Multiplanar and multisequence MR images of the brain were obtained without contrast. 313 images. COMPARISON: None. FINDINGS: BRAIN PARENCHYMA: Several foci and small zones of increased T2 FLAIR signal in the bilateral cerebral white matter. No abnormal focus of restricted diffusion. No acute intracranial hemorrhage identified. CSF SPACES: Moderate generalized volume loss. No significant midline shift or other mass effect.No extra-axial fluid collection. VASCULAR SYSTEM: Major intracranial flow voids are maintained. PARANASAL SINUSES AND MASTOID AIR CELLS: No significant air fluid levels. ORBITS: Symmetric contents. MRI/Brain without Contrast IMPRESSION: No evidence for acute infarct. Moderate chronic involutional and white matter changes. Electronically Signed: Roberta Coles MD at 14:19 EDT ,
== END | disposition home or self-care (01) ==
LOC: MRI 09:35
PROVIDERS: PCP Student in an Organized Health Care Education/Training Program; Referring Provider Family Medicine Geriatric Medicine; Visit Provider Family Medicine Geriatric Medicine
DX: R41.82 Altered mental status, unspecified (principal)
CPT/HCPCS: 70551

== ENCOUNTER 2022-07-18 09:03 | Outpatient (CLI) | payer MEDICARE, SELFPAY ==
[2022-07-18 09:15] VITALS: BP 149/75; PULSE 73; RESP 16; TEMP 36.7; O2SAT 99
[2022-07-18 09:45] VITALS: BP 146/70; PULSE 76; RESP 16; TEMP 36.7
[2022-07-18 10:45] VITALS: BP 136/69; PULSE 77; RESP 16; TEMP 36.6
[2022-07-18] MEDS: 0.9% NaCl Peripheral Flush Adult/Peds IV (11:15)
[2022-07-18] MEDS: Furosemide 20 MG/2 ML VIAL IV (11:16)
[2022-07-18 11:38] VITALS: BP 153/72; PULSE 75; RESP 16; TEMP 36.9; O2SAT 97
[2022-07-18 12:38] VITALS: BP 147/71; PULSE 85; RESP 16; TEMP 36.6
[2022-07-18 13:06] VITALS: BP 147/67; PULSE 80; RESP 16; TEMP 36.9; O2SAT 98
== END 2022-07-18 23:59 | disposition home or self-care (01) ==
LOC: MEDOUTP 09:03
PROVIDERS: PCP Student in an Organized Health Care Education/Training Program; Referring Provider Family Medicine Geriatric Medicine; Visit Provider Family Medicine Geriatric Medicine
DX: I12.9 Hypertensive chronic kidney disease with stage 1 through stage 4 chronic kidney disease, or unspecified chronic kidney disease (principal); N18.9 Chronic kidney disease, unspecified
CPT/HCPCS: 36415; 36430; 86850; 86900; 86901; 86920; 86922; J7040; P9016; A4216; J1940

== ENCOUNTER → 2024-08-28 | Outpatient (CLI) | payer MEDICARE, SELFPAY ==
[2024-08-28 19:08] LABS: Amphetamine Urine NEGATIVE (<1000 ng/mL); Barbiturate Urine NEGATIVE (< 200 ng/mL); Benzodiazepine Urine NEGATIVE (< 200 ng/mL); Buprenorphine Urine NEGATIVE (< 200 ng/mL); Cocaine Urine NEGATIVE (< 300 ng/mL); Fentanyl, Urine NEGATIVE; Methadone Urine NEGATIVE (< 300 ng/mL); Opiates Urine PRESUMPTIVE POSITIVE (< 300 ng/mL); Oxycodone, Urine NEGATIVE (< 100 ng/mL); PCP Urine NEGATIVE (< 25 ng/mL); THC Urine NEGATIVE (< 50 ng/mL)
== END | disposition home or self-care (01) ==
PROVIDERS: PCP Student in an Organized Health Care Education/Training Program; Referring Provider Anesthesiology Pain Medicine; Visit Provider Anesthesiology Pain Medicine
DX: F11.20 Opioid dependence, uncomplicated (principal)
CPT/HCPCS: 80307